=== PATIENT | female | born 1945 | race Caucasian/White ===

== ENCOUNTER 2016-05-20 15:56 | Emergency (ER) | payer OTHER, MEDICARE ==
--- NOTE | 2016-05-20 16:46 | EDPHY ---
H & P Stated Complaint: Depression x 1 month Source: Patient Exam Limitations: No limitations - Personal History Current Tetanus Diphtheria and Acellular Pertussis (TDAP): Yes Tetanus Vaccine Date: < 10 years - Medical/Surgical History Hx Asthma: No Hx Chronic Respiratory Disease: No Hx Diabetes: No Hx Cardiac Disease: No Hx Renal Disease: No Hx Cirrhosis: No Hx Alcoholism: No Hx HIV/AIDS: No Hx Splenectomy or Spleen Trauma: No Other PMH: cervical dystonia, hypothyroid, UTIs, Depression - Social History Smoking Status: Never smoked Time Seen by Provider: 05/20/16 16:12 HPI/ROS: CHIEF COMPLAINT: Depression, suicidal ideation secondary to underlying neurologic disease HISTORY OF PRESENT ILLNESS: The patient is referred to the emergency department from [facility] with suicidal ideation and depression. The patient has a history of cervical dystonia which has been somewhat refractory treatment. She underwent ECT therapy 1 month ago for treatment of the neurologic condition with very transient results. The patient reportedly has been treated with Effexor for depression. The patient continues to have worsening symptoms of depression. She has suicidal thoughts that she will end her life by stopping eating and drinking. REVIEW OF SYSTEMS: A comprehensive 10 point review of systems is otherwise negative aside from elements mentioned in the history of present illness. (Marvin Burgess) - Physical Exam Exam: General Appearance: Alert, no distress Eyes: Pupils equal and round no pallor or injection ENT, Mouth: Mucous membranes moist Respiratory: There are no retractions, lungs are clear to auscultation Cardiovascular: Regular rate and rhythm Gastrointestinal: Abdomen is soft and nontender, no masses, bowel sounds normal Neurological: Alert and oriented x4, 5/5 strength all 4 extremities, Parkinson like movement noted of the head consistent with her diagnosis of cervical dystonia Skin: Warm and dry, no rashes Musculoskeletal: Neck is supple nontender Extremities: symmetrical, full range of motion Psychiatric: Flat affect, endorses symptoms of depression and suicidal ideation. (Marvin Burgess) Constitutional: Initial Vital Signs Temperature (C) 36.6 C 05/20/16 15:59 Heart Rate 73 05/20/16 15:59 Respiratory Rate 18 05/20/16 15:59 Blood Pressure 137/67 H 05/20/16 15:59 O2 Sat (%) 93 05/20/16 15:59 O2 Delivery Mode Room Air Allergies/Adverse Reactions: No Known Allergies Allergy (Unverified 11/19/14 10:28) Home Medications: Medication Instructions Recorded Botox 11/19/14 CALCIUM 11/19/14 Clonazepam 11/19/14 Effexor 11/19/14 Nitrofurantoin Macrobid [Macrobid] 100 mg PO BID #14 cap 11/19/14 Synthroid 11/19/14 Medical Decision Making ED Course/Re-evaluation: The patient presents to the ED with depression, suicidal thoughts and dehydration. The patient received 2 L of normal saline. The patient has been medically cleared for psychiatric evaluation. The patient has been placed on an M1 psychiatric hold. At this point time, psychiatric placement is pending. The patient will be be turned over to Dr. Ludwig at 9pm. (Marvin Burgess) 2137: patient signed over to mt at 9:00 p.m. shift change. Patient pending placement. M1 hold. Depression. Suicidal ideation. Patient be turned over to Dr. Walden at 10:00 p.m. shift change. (Lester Ludwig) 2300 care assumed might me from Dr. Ludwig pending placement. 0130 patient has been accepted to [facility] by Dr. Mahajan. I have completed the EMTALA form. (Emerson Walden) Differential Diagnosis: Differential diagnosis considered includes depression, suicidal ideation, renal failure, dehydration (Marvin Burgess) - Data Points Laboratory Results: Laboratory Results 05/20/16 18:00 05/20/16 18:00 05/20/16 05/20/16 05/20/16 22:35 18:00 18:00 WBC 5.28 10^3/uL 10^3/uL (3.80-9.50) RBC 4.94 10^6/uL 10^6/uL (4.18-5.33) Hgb 15.1 g/dL g/dL (12.6-16.3) Hct 44.9 % % (38.0-47.0) MCV 90.9 fL fL (81.5-99.8) MCH 30.6 pg pg (27.9-34.1) MCHC 33.6 g/dL g/dL (32.4-36.7) RDW 12.1 % % (11.5-15.2) Plt Count 203 10^3/uL 10^3/uL (150-400) MPV 10.7 fL fL (8.7-11.7) Neut % (Auto) 48.8 % % (39.3-74.2) Lymph % (Auto) 38.8 % % (15.0-45.0) [place] % (Auto) 9.7 % % (4.5-13.0) Eos % (Auto) 1.7 % % (0.6-7.6) Baso % (Auto) 0.8 % % (0.3-1.7) Nucleat RBC Rel Count 0.0 % % (0.0-0.2) Absolute Neuts (auto) 2.58 10^3/uL 10^3/uL (1.70-6.50) Absolute Lymphs (auto) 2.05 10^3/uL 10^3/uL (1.00-3.00) Absolute Monos (auto) 0.51 10^3/uL 10^3/uL (0.30-0.80) Absolute Eos (auto) 0.09 10^3/uL 10^3/uL (0.03-0.40) Absolute Basos (auto) 0.04 10^3/uL 10^3/uL (0.02-0.10) Absolute Nucleated RBC 0.00 10^3/uL 10^3/uL (0-0.01) Immature Gran % 0.2 % % (0.0-1.1) Immature Gran # 0.01 10^3/uL 10^3/uL (0.00-0.10) Sodium 143 mEq/L mEq/L (134-144) Potassium 4.2 mEq/L mEq/L (3.5-5.2) Chloride 108 mEq/L mEq/L (97-110) Carbon Dioxide 24 mEq/l mEq/l (22-31) Anion Gap 11 mEq/L mEq/L (8-16) BUN 26 mg/dL H mg/dL (7-23) Creatinine 0.9 mg/dL mg/dL (0.6-1.0) Estimated GFR > 60 Glucose 84 mg/dL mg/dL (70-100) Calcium 9.6 mg/dL mg/dL (8.5-10.4) Urine Opiates Screen NEGATIVE (NEGATIVE) Urine Barbiturates NEGATIVE (NEGATIVE) Ur Phencyclidine Scrn NEGATIVE (NEGATIVE) Ur Amphetamine Screen NEGATIVE (NEGATIVE) U Benzodiazepines Scrn NEGATIVE (NEGATIVE) Urine Cocaine Screen NEGATIVE (NEGATIVE) U Marijuana (THC) Screen NEGATIVE (NEGATIVE) Medications Given: Discontinued Medications Clonazepam (Klonopin) 1 mg PO EDNOW ONE Stop: 05/20/16 21:47 Last Admin: 05/20/16 22:57 Dose: 1 mg Sodium Chloride (Ns) 1,000 mls @ 0 mls/hr IV ONCE ONE PRN Reason: Wide Open Stop: 05/20/16 18:05 Last Admin: 05/20/16 18:16 Dose: 1,000 mls Sodium Chloride (Ns) 1,000 mls @ 0 mls/hr IV ONCE ONE PRN Reason: Wide Open Stop: 05/20/16 18:05 Last Admin: 05/20/16 21:46 Dose: 1,000 mls Sodium Chloride (Ns) 1,000 mls @ 0 mls/hr IV ONCE ONE PRN Reason: Wide Open Stop: 05/20/16 20:30 Last Admin: 05/20/16 23:16 Dose: Not Given Mirtazapine (Remeron) 45 mg PO EDNOW ONE Stop: 05/20/16 21:48 Last Admin: 05/20/16 22:57 Dose: 45 mg Risperidone (Risperdal) 1.5 mg PO EDNOW ONE Stop: 05/20/16 22:31 Last Admin: 05/20/16 22:57 Dose: 1.5 mg Departure - Departure Disposition: Other Psych, Not [facility] Clinical Impression: Suicidal ideation, Severe major depression Condition: Fair Referrals: Griselda Gonzalez MD [Primary Care Provider] - As per Instructions
[2016-05-20] MEDS ORDERED: NS 1,000 ML IV ONE ×3 (18:04→20:29)
[2016-05-20 18:21] LABS: % IMMATURE GRANULYOCYTES 0.2 % (0.0-1.1); ABSOLUTE IMMATURE GRANULOCYTES 0.01 10^3/uL (0.00-0.10); ADD DIFF? NO; ADD MORPH? NO; ADD SCAN? NO; ATYPICAL LYMPHOCYTE FLAG 30 (0-99); FRAGMENT RBC FLAG 0 (0-99); HEMATOCRIT 44.9 % (38.0-47.0); HEMOGLOBIN 15.1 g/dL (12.6-16.3); LEFT SHIFT FLG 0 (0-99); LIPEMIA HEMOLYSIS FLAG 80 (0-99); MEAN CELL HEMOGLOBIN 30.6 pg (27.9-34.1); MEAN CELL HEMOGLOBIN CONCENTR. 33.6 g/dL (32.4-36.7); MEAN CELL VOLUME 90.9 fL (81.5-99.8); MEAN PLATELET VOLUME 10.7 fL (8.7-11.7); PLATELET CLUMPS FLAG 0 (0-99); PLATELET COUNT 203 10^3/uL (150-400); RED BLOOD CELL COUNT 4.94 10^6/uL (4.18-5.33); RED CELL DISTRIBUTION WIDTH 12.1 % (11.5-15.2)
[2016-05-20 18:38] LABS: ANION GAP 11 mEq/L (8-16); CALCIUM 9.6 mg/dL (8.5-10.4); CARBON DIOXIDE 24 mEq/l (22-31); CHLORIDE 108 mEq/L (97-110); CREATININE 0.9 mg/dL (0.6-1.0); GLOMERULAR FILTRATION RATE > 60; GLUCOSE 84 mg/dL (70-100); POTASSIUM 4.2 mEq/L (3.5-5.2); SODIUM 143 mEq/L (134-144)
[2016-05-20] MEDS ORDERED: clonazePAM 1 MG TAB PO ONE (21:46)
[2016-05-20] MEDS ORDERED: risperiDONE 0.25 MG TAB PO ONE (21:47)
[2016-05-20] MEDS ORDERED: MIRTAZAPINE 30 MG TAB PO ONE (21:47)
[2016-05-20] MEDS ORDERED: risperiDONE 0.5 MG TAB PO ONE (22:30)
[2016-05-20 23:47] VITALS: RESP 16
[2016-05-21 02:13] VITALS: BP 135/74; PULSE 69; TEMP 97.9; O2SAT 92
== END 2016-05-21 02:11 ==
DX: F32.2 Major depressive disorder, single episode, severe without psychotic features (principal); R45.851 Suicidal ideations
CPT/HCPCS: 80305

== ENCOUNTER → 2016-08-24 | Outpatient (CLI) | payer OTHER, MEDICARE | LOC: BHCLAF 13:30 | PROVIDERS: ATTEND Internal Medicine Cardiovascular Disease | DX: I45.10 Unspecified right bundle-branch block (principal); F60.3 Borderline personality disorder; Z79.899 Other long term (current) drug therapy | CPT/HCPCS: 93005-PO ==

== ENCOUNTER → 2016-10-05 | Outpatient (CLI) | payer OTHER, MEDICARE | LOC: BHLMT 10:30 | PROVIDERS: ATTEND Internal Medicine Cardiovascular Disease | DX: R94.31 Abnormal electrocardiogram [ECG] [EKG] (principal) ==

== ENCOUNTER → 2016-10-13 | Outpatient (CLI) | payer OTHER, MEDICARE | LOC: BHLMT 10:00 | PROVIDERS: ATTEND Internal Medicine Interventional Cardiology | DX: R94.31 Abnormal electrocardiogram [ECG] [EKG] (principal) | CPT/HCPCS: 93306-PO ==

== ENCOUNTER 2016-12-20 22:19 | Inpatient (IN) | payer OTHER, MEDICARE ==
--- NOTE | 2016-12-20 22:43 | EDPHY ---
General - History Smoking Status: Never smoked Narrative: CHIEF COMPLAINT: suicide attempt, chemical ingestion HISTORY OF PRESENT ILLNESS: Patient presents with with reports of suicide attempt by ingestion of service cleaner and turpentine. She will not provide many details to me. She says that she is anxious and sleepy. She admits to ingesting these chemicals in attempt to kill herself. She says due to the anxiety she does not want to live. She will not provide any other details for this. I then discussed the case with her . The said that she left his presence at 11:00 a.m.. At 9:00 p.m. he received a phone call from someone who works at an [employer]. The person informed the at the patient's request that she had been drinking these chemicals all day. There is no way to know the amount with the exact chemical she ingested she will not inform us of this and this was unwitnessed. She denies chest pain but she does feel shaking anxious. No other associated complaints. She will not provide any modifying factors. REVIEW OF SYSTEMS: Ten systems reviewed and are negative unless otherwise noted in the HPI PCP: Unknown SPECIALISTS: Dr. Olmos PAST MEDICAL HISTORY: Depression, anxiety, hypothyroid SOCIAL HISTORY: Reviewed with spouse EXAMINATION General Appearance: Alert, perseverating Head: normocephalic, atraumatic Eyes: Pupils equal and round, no conjunctival pallor or injection ENT, Mouth: Mucous membranes moist. Dried waxes substance around the oral mucosa. The airway is patent. Neck: Normal inspection, supple, non-tender Respiratory: Scattered harsh rhonchi crackles. No retractions. No distress. Cardiovascular: Tachycardic rate with regular rhythm. No murmur. Gastrointestinal: Abdomen is soft and nontender. No distention. No tympany rigidity. Neurological: Alert to person and place. Unable to perform remainder of neuro examination due to uncooperative patient Skin: Warm and dry, no rash. There are dried unknown substances around the neck and chest and chin. No laceration. No abrasions. Extremities: Moving all 4 extremities. Will not follow commands well enough to test range of motion Psychiatric: Flat affect. Admits to suicide attempt by ingestion of chemicals. DIFFERENTIAL DIAGNOSES: Including but not limited to suicide attempt, metabolic acidosis, depression, anxiety MDM: 10:40 p.m. Suicide attempt by ingestion of brasso (service cleaner) and either turpentine or denatured alcohol. Patient is perseverating but she is awake alert. She is protecting her airway without any difficulty at this time. I have completed an M1 hold at this time, and Dr. Wright has signed this. I will contact poison Control. I have ordered lactic acid, venous blood gas and baseline laboratory studies. 10:55 p.m. Case discussed with Poison Control, Mariah KILGORE, case #[id number]. Informed her of the presentation and examination. She recommends routine laboratory studies to include chemistry and liver function panel. Recommends Tylenol and salicylic acid level. Recommend EKG. Recommend supportive care including oxygen if needed. Recommend IV fluid resuscitation. She informed me that the service cleaner is a wax base fur dry cleaner, and there is no formal treatment for this. Supportive care recommended. The teenager alcohol as an ethanol base and not a methanol base. This with same treatment as ethanol intoxication. The to return is a hydrocarbon, thus Respiratory depression should be monitored. There is no need for us to call back with results unless we have further questions for the behavior interventionist who was on-call. 11:35 p.m. Patient re-evaluated. She continues to perseverate, but her vital signs have improved. She is now vital signs within normal limits. She continues to cough with a harsh, productive cough. She is in no acute distress at this time. 11:41 p.m. Case discussed with hospitalist Dr. Brady Curtis. He will admit the patient to his service. The patient will require an ICU bed due to the M1 hold. This has been ordered. She is admitted in stable condition at this time. (Shashank Shrestha) PHYSICIAN DOCUMENTATION: The patient was evaluated and managed by the Physician Computer Operations Analyst. My co- signature indicates that I have reviewed this chart and I agree with the findings and plan of care as documented. I am the secondary supervising physician. (Sandy Wright) - Diagnostics Imaging Results: Imaging Impressions Chest X-Ray 12/20/16 23:01 Impression: Shallow aspiration exaggerates lung markings. There may be an element of airways disease and basilar atelectasis with follow-up suggested to exclude developing pneumonia. - Objective Vital Signs: Initial Vital Signs Temperature (C) 36.4 C 12/20/16 22:23 Heart Rate 102 H 12/20/16 22:23 Respiratory Rate 18 12/20/16 22:23 Blood Pressure 130/81 H 12/20/16 22:23 O2 Sat (%) 90 L 12/20/16 22:23 O2 Delivery Mode Room Air Allergies/Adverse Reactions: No Known Allergies Allergy (Verified 12/20/16 22:25) Home Medications: Medication Instructions Recorded Botox 11/19/14 CALCIUM 11/19/14 Effexor 11/19/14 Synthroid 11/19/14 Valium 12/20/16 Laboratory Results: Laboratory Results 12/20/16 23:00 12/20/16 23:00 12/20/16 12/20/16 12/20/16 23:30 23:10 23:00 WBC RBC Hgb POC Hgb Hct POC Hct MCV MCH MCHC RDW Plt Count MPV Neut % (Auto) Lymph % (Auto) [place] % (Auto) Eos % (Auto) Baso % (Auto) Nucleat RBC Rel Count Absolute Neuts (auto) Absolute Lymphs (auto) Absolute Monos (auto) Absolute Eos (auto) Absolute Basos (auto) Absolute Nucleated RBC Immature Gran % Immature Gran # Puncture Site Patient Temperature VBG pH VBG HCO3 VBG Total CO2 VBG O2 Saturation VBG Base Excess VBG Lactic Acid 4.9 mmol/L H mmol/L (0.7-2.1) Mixed VBG pCO2 Mixed VBG pO2 POC Sodium Sodium POC Potassium Potassium POC Chloride Chloride Carbon Dioxide Anion Gap POC BUN BUN Creatinine POC Creatinine Estimated GFR Glucose POC Glucose Serum Osmolality 311 mosmo/kg H mosmo/kg (280-297) Calcium Total Bilirubin Conjugated Bilirubin Unconjugated Bilirubin AST ALT Alkaline Phosphatase Total Protein Albumin TSH 3.850 uIU/mL uIU/mL (0.465-4.680) Salicylates Urine Opiates Screen NEGATIVE (NEGATIVE) Acetaminophen Urine Barbiturates NEGATIVE (NEGATIVE) Ur Phencyclidine Scrn NEGATIVE (NEGATIVE) Ur Amphetamine Screen NEGATIVE (NEGATIVE) U Benzodiazepines Scrn NON-NEGATIVE H (NEGATIVE) Urine Cocaine Screen NEGATIVE (NEGATIVE) U Marijuana (THC) Screen NEGATIVE (NEGATIVE) Ethyl Alcohol 12/20/16 12/20/16 12/20/16 23:00 23:00 23:00 WBC 15.60 10^3/uL H 10^3/uL (3.80-9.50) RBC 5.25 10^6/uL 10^6/uL (4.18-5.33) Hgb 17.3 g/dL H g/dL (12.6-16.3) POC Hgb Hct 49.2 % H % (38.0-47.0) POC Hct MCV 93.7 fL fL (81.5-99.8) MCH 33.0 pg pg (27.9-34.1) MCHC 35.2 g/dL g/dL (32.4-36.7) RDW 13.5 % % (11.5-15.2) Plt Count 304 10^3/uL 10^3/uL (150-400) MPV 10.0 fL fL (8.7-11.7) Neut % (Auto) 77.1 % H % (39.3-74.2) Lymph % (Auto) 13.7 % L % (15.0-45.0) [place] % (Auto) 8.3 % % (4.5-13.0) Eos % (Auto) 0.1 % L % (0.6-7.6) Baso % (Auto) 0.4 % % (0.3-1.7) Nucleat RBC Rel Count 0.0 % % (0.0-0.2) Absolute Neuts (auto) 12.04 10^3/uL H 10^3/uL (1.70-6.50) Absolute Lymphs (auto) 2.13 10^3/uL 10^3/uL (1.00-3.00) Absolute Monos (auto) 1.30 10^3/uL H 10^3/uL (0.30-0.80) Absolute Eos (auto) 0.01 10^3/uL L 10^3/uL (0.03-0.40) Absolute Basos (auto) 0.06 10^3/uL 10^3/uL (0.02-0.10) Absolute Nucleated RBC 0.00 10^3/uL 10^3/uL (0-0.01) Immature Gran % 0.4 % % (0.0-1.1) Immature Gran # 0.06 10^3/uL 10^3/uL (0.00-0.10) Puncture Site NONE GIVEN Patient Temperature 37.0 DEGREES DEGREES VBG pH 7.39 (7.31-7.42) VBG HCO3 26 mEQ/L mEQ/L (22-26) VBG Total CO2 28 mEq/L H mEq/L (23-27) VBG O2 Saturation 87 % H % (65-75) VBG Base Excess 1.2 mEq/L mEq/L (-2.5-2.5) VBG Lactic Acid Mixed VBG pCO2 44 mmHg mmHg (40-44) Mixed VBG pO2 58 mmHg H mmHg (35-40) POC Sodium Sodium 139 mEq/L mEq/L (134-144) POC Potassium Potassium 3.5 mEq/L mEq/L (3.5-5.2) POC Chloride Chloride 95 mEq/L L mEq/L (97-110) Carbon Dioxide 24 mEq/l mEq/l (22-31) Anion Gap 20 mEq/L H mEq/L (8-16) POC BUN BUN 18 mg/dL mg/dL (7-23) Creatinine 0.8 mg/dL mg/dL (0.6-1.0) POC Creatinine Estimated GFR > 60 Glucose 106 mg/dL H mg/dL (70-100) POC Glucose Serum Osmolality Calcium 10.4 mg/dL mg/dL (8.5-10.4) Total Bilirubin 1.6 mg/dL H mg/dL (0.1-1.4) Conjugated Bilirubin 0.2 mg/dL mg/dL (0.0-0.5) Unconjugated Bilirubin 1.4 mg/dL H mg/dL (0.0-1.1) AST 53 IU/L H IU/L (14-46) ALT 51 IU/L IU/L (9-52) Alkaline Phosphatase 93 IU/L IU/L (38-126) Total Protein 8.1 g/dL g/dL (6.3-8.2) Albumin 4.8 g/dL g/dL (3.5-5.0) TSH Salicylates < 1.0 mg/dL L mg/dL (2.0-20.0) Urine Opiates Screen Acetaminophen < 10 mcg/mL L mcg/mL (10-30) Urine Barbiturates Ur Phencyclidine Scrn Ur Amphetamine Screen U Benzodiazepines Scrn Urine Cocaine Screen U Marijuana (THC) Screen Ethyl Alcohol 70 mg/dL H mg/dL (0-10) 12/20/16 22:55 WBC RBC Hgb POC Hgb 18.4 gm/dL H gm/dL (12.6-16.3) Hct POC Hct 54 % H % (38-47) MCV MCH MCHC RDW Plt Count MPV Neut % (Auto) Lymph % (Auto) [place] % (Auto) Eos % (Auto) Baso % (Auto) Nucleat RBC Rel Count Absolute Neuts (auto) Absolute Lymphs (auto) Absolute Monos (auto) Absolute Eos (auto) Absolute Basos (auto) Absolute Nucleated RBC Immature Gran % Immature Gran # Puncture Site Patient Temperature VBG pH VBG HCO3 VBG Total CO2 VBG O2 Saturation VBG Base Excess VBG Lactic Acid Mixed VBG pCO2 Mixed VBG pO2 POC Sodium 140 mEq/L mEq/L (134-144) Sodium POC Potassium 4.4 mEq/L mEq/L (3.3-5.0) Potassium POC Chloride 98 mEq/L mEq/L (97-110) Chloride Carbon Dioxide Anion Gap POC BUN 25 mg/dL H mg/dL (7-23) BUN Creatinine POC Creatinine 0.9 mg/dL mg/dL (0.6-1.0) Estimated GFR Glucose POC Glucose 113 mg/dL H mg/dL (70-100) Serum Osmolality Calcium Total Bilirubin Conjugated Bilirubin Unconjugated Bilirubin AST ALT Alkaline Phosphatase Total Protein Albumin TSH Salicylates Urine Opiates Screen Acetaminophen Urine Barbiturates Ur Phencyclidine Scrn Ur Amphetamine Screen U Benzodiazepines Scrn Urine Cocaine Screen U Marijuana (THC) Screen Ethyl Alcohol Medications Given: Ondansetron HCl (Zofran) 4 mg IVP Q4HRS PRN PRN Reason: Nausea/Vomiting, Can't Take PO Stop: 06/18/17 23:40 Last Admin: 12/21/16 01:00 Dose: 4 mg Discontinued Medications Sodium Chloride (Ns) 1,000 mls @ 0 mls/hr IV EDNOW ONE; Wide Open PRN Reason: Protocol Stop: 12/20/16 22:55 Last Admin: 12/20/16 23:25 Dose: 1,000 mls Mirtazapine (Remeron) 15 mg PO ONCE ONE Stop: 12/21/16 01:14 Last Admin: 12/21/16 01:47 Dose: 15 mg Point of Care Test Results: 12/20/16 22:55 POC Sodium 140 POC Potassium 4.4 POC Chloride 98 POC BUN 25 H POC Creatinine 0.9 POC Glucose 113 H Departure - Departure Disposition: [facility] Inpatient Acute Clinical Impression: Attempted suicide Ingestion of corrosive chemical Qualifiers: Encounter type: initial encounter Injury intent: intentional self-harm Qualified Code(s): T54.92XA - Toxic effect of unspecified corrosive substance, intentional self-harm, initial encounter Condition: Fair
[2016-12-20] MEDS ORDERED: NS 1,000 ML IV ONE (22:54)
[2016-12-20 23:12] LABS: PCO2 VENOUS 44 mmHg (40-44); PH VENOUS BLOOD 7.39 (7.31-7.42); PO2 VENOUS 58 mmHg (35-40); TCO2 VENOUS 28 mEq/L (23-27); VEN MEASURED OXYGEN SATURATION 87 % (65-75)
[2016-12-20 23:15] LABS: % IMMATURE GRANULYOCYTES 0.4 % (0.0-1.1); ABSOLUTE IMMATURE GRANULOCYTES 0.06 10^3/uL (0.00-0.10); ADD DIFF? NO; ADD MORPH? NO; ADD SCAN? NO; ATYPICAL LYMPHOCYTE FLAG 0 (0-99); FRAGMENT RBC FLAG 0 (0-99); HEMATOCRIT 49.2 % (38.0-47.0); HEMOGLOBIN 17.3 g/dL (12.6-16.3); LEFT SHIFT FLG 0 (0-99); LIPEMIA HEMOLYSIS FLAG 90 (0-99); MEAN CELL HEMOGLOBIN CONCENTR. 35.2 g/dL (32.4-36.7); MEAN CELL VOLUME 93.7 fL (81.5-99.8); PLATELET CLUMPS FLAG 10 (0-99); PLATELET COUNT 304 10^3/uL (150-400); RED BLOOD CELL COUNT 5.25 10^6/uL (4.18-5.33); RED CELL DISTRIBUTION WIDTH 13.5 % (11.5-15.2)
[2016-12-20 23:34] LABS: ALANINE AMINOTRANSFERASE 51 IU/L (9-52); ALBUMIN 4.8 g/dL (3.5-5.0); ALKALINE PHOSPHATASE 93 IU/L (38-126); ANION GAP 20 mEq/L (8-16); ASPARTATE AMINOTRANSFERASE 53 IU/L (14-46); BILIRUBIN,TOTAL 1.6 mg/dL (0.1-1.4); BILIRUBIN-CONJUGATED 0.2 mg/dL (0.0-0.5); BILIRUBIN-UNCONJUGATED 1.4 mg/dL (0.0-1.1); CALCIUM 10.4 mg/dL (8.5-10.4); CARBON DIOXIDE 24 mEq/l (22-31); CHLORIDE 95 mEq/L (97-110); CREATININE 0.8 mg/dL (0.6-1.0); ETHANOL SERUM 70 mg/dL (0-10); GLOMERULAR FILTRATION RATE > 60; GLUCOSE 106 mg/dL (70-100); POTASSIUM 3.5 mEq/L (3.5-5.2); SALICYLATE < 1.0 mg/dL (2.0-20.0); SODIUM 139 mEq/L (134-144); TOTAL PROTEIN 8.1 g/dL (6.3-8.2)
--- NOTE | 2016-12-20 23:34 | CPEKG ---
Heart Rate: 93 RR Interval: 645 P-R Interval: 152 QRSD Interval: 140 QT Interval: 412 QTC Interval: 513 P [place]: 68 QRS [place]: -119 T Wave [place]: 62 EKG Severity - ABNORMAL ECG - EKG Impression: SINUS RHYTHM EKG Impression: PROBABLE LEFT ATRIAL ABNORMALITY EKG Impression: RIGHT BUNDLE BRANCH BLOCK Electronically Signed By: Sandy Wright 22-Dec-2016 05:27:20
[2016-12-20] MEDS ORDERED: ACETAMINOPHEN 325 MG TAB PO PRN (23:41)
[2016-12-20] MEDS ORDERED: ONDANSETRON DISINTEGRATING 4 MG TAB PO PRN (23:41)
[2016-12-20] MEDS ORDERED: ONDANSETRON 4 MG/2 ML VIAL IVP PRN (23:41)
--- NOTE | 2016-12-21 01:06 | PDGENHP ---
History and Physical - Chief Complaint Suicide attempt - History of Present Illness 71 yo F w/ depression, anxiety, and cervical dystonia brought to ED after suicide attempt. Patient has had several psychiatric admission for similar issues in the setting of severe depression and anxiety. Today she drank unclear quantities of turpentine, denatured alcohol, and Brasso in a suicide attempt. She states a lot of her depression stems from her cervical dystonia and related disability. ED spoke with poison control who recommended single ECG and admission for monitoring and supportive care. History Information - Allergies/Home Medication List Allergies/Adverse Reactions: No Known Allergies Allergy (Verified 12/20/16 22:25) Home Medications: Botox 11/19/14 [Last Taken Unknown] CALCIUM 11/19/14 [Last Taken Unknown] Effexor 11/19/14 [Last Taken Unknown] Synthroid 11/19/14 [Last Taken Unknown] Valium 12/20/16 [Last Taken Unknown] I have personally reviewed and updated: family history, medical history - Past Medical History Additional medical history: Depression - Family History Positive for: cancer - Social History Smoking Status: Never smoked Review of Systems Review of Systems: ROS: 10pt was reviewed & negative except for what was stated in HPI & below Physical Exam Physical Exam: Temp Pulse Resp BP Pulse Ox 36.9 C 85 16 132/69 H 93 12/21/16 00:05 12/21/16 00:05 12/21/16 00:05 12/21/16 00:05 12/21/16 00:05 Constitutional: chronically ill appearing, uncomfortable Eyes: PERRL, EOMI Ears, Nose, Mouth, Throat: moist mucous membranes, no oral mucosal ulcers Cardiovascular: regular rate and rhythym, systolic murmur Respiratory: no respiratory distress, no rales or rhonchi Gastrointestinal: normoactive bowel sounds, soft, non-tender abdomen Skin: warm, normal color Musculoskeletal: full muscle strength, no muscle tenderness Neurologic: AAOx3, CN II-XII Intact, other (Side to side head motion noted) Psychiatric: anxious, depressed Lab Data & Imaging Review 12/20/16 23:00 12/20/16 23:00 WBC 15.60 10^3/uL (3.80-9.50) H 12/20/16 23:00 RBC 5.25 10^6/uL (4.18-5.33) 12/20/16 23:00 Hgb 17.3 g/dL (12.6-16.3) H 12/20/16 23:00 POC Hgb 18.4 gm/dL (12.6-16.3) H 12/20/16 22:55 Hct 49.2 % (38.0-47.0) H 12/20/16 23:00 POC Hct 54 % (38-47) H 12/20/16 22:55 MCV 93.7 fL (81.5-99.8) 12/20/16 23:00 MCH 33.0 pg (27.9-34.1) 12/20/16 23:00 MCHC 35.2 g/dL (32.4-36.7) 12/20/16 23:00 RDW 13.5 % (11.5-15.2) 12/20/16 23:00 Plt Count 304 10^3/uL (150-400) 12/20/16 23:00 MPV 10.0 fL (8.7-11.7) 12/20/16 23:00 Neut % (Auto) 77.1 % (39.3-74.2) H 12/20/16 23:00 Lymph % (Auto) 13.7 % (15.0-45.0) L 12/20/16 23:00 [place] % (Auto) 8.3 % (4.5-13.0) 12/20/16 23:00 Eos % (Auto) 0.1 % (0.6-7.6) L 12/20/16 23:00 Baso % (Auto) 0.4 % (0.3-1.7) 12/20/16 23:00 Nucleat RBC Rel Count 0.0 % (0.0-0.2) 12/20/16 23:00 Absolute Neuts (auto) 12.04 10^3/uL (1.70-6.50) H 12/20/16 23:00 Absolute Lymphs (auto) 2.13 10^3/uL (1.00-3.00) 12/20/16 23:00 Absolute Monos (auto) 1.30 10^3/uL (0.30-0.80) H 12/20/16 23:00 Absolute Eos (auto) 0.01 10^3/uL (0.03-0.40) L 12/20/16 23:00 Absolute Basos (auto) 0.06 10^3/uL (0.02-0.10) 12/20/16 23:00 Absolute Nucleated RBC 0.00 10^3/uL (0-0.01) 12/20/16 23:00 Immature Gran % 0.4 % (0.0-1.1) 12/20/16 23:00 Immature Gran # 0.06 10^3/uL (0.00-0.10) 12/20/16 23:00 Puncture Site NONE GIVEN 12/20/16 23:00 Patient Temperature 37.0 DEGREES 12/20/16 23:00 VBG pH 7.39 (7.31-7.42) 12/20/16 23:00 VBG HCO3 26 mEQ/L (22-26) 12/20/16 23:00 VBG Total CO2 28 mEq/L (23-27) H 12/20/16 23:00 VBG O2 Saturation 87 % (65-75) H 12/20/16 23:00 VBG Base Excess 1.2 mEq/L (-2.5-2.5) 12/20/16 23:00 VBG Lactic Acid 4.9 mmol/L (0.7-2.1) H 12/20/16 23:00 Mixed VBG pCO2 44 mmHg (40-44) 12/20/16 23:00 Mixed VBG pO2 58 mmHg (35-40) H 12/20/16 23:00 POC Sodium 140 mEq/L (134-144) 12/20/16 22:55 Sodium 139 mEq/L (134-144) 12/20/16 23:00 POC Potassium 4.4 mEq/L (3.3-5.0) 12/20/16 22:55 Potassium 3.5 mEq/L (3.5-5.2) 12/20/16 23:00 POC Chloride 98 mEq/L (97-110) 12/20/16 22:55 Chloride 95 mEq/L (97-110) L 12/20/16 23:00 Carbon Dioxide 24 mEq/l (22-31) 12/20/16 23:00 Anion Gap 20 mEq/L (8-16) H 12/20/16 23:00 POC BUN 25 mg/dL (7-23) H 12/20/16 22:55 BUN 18 mg/dL (7-23) 12/20/16 23:00 Creatinine 0.8 mg/dL (0.6-1.0) 12/20/16 23:00 POC Creatinine 0.9 mg/dL (0.6-1.0) 12/20/16 22:55 Estimated GFR > 60 12/20/16 23:00 Glucose 106 mg/dL (70-100) H 12/20/16 23:00 POC Glucose 113 mg/dL (70-100) H 12/20/16 22:55 Calcium 10.4 mg/dL (8.5-10.4) 12/20/16 23:00 Total Bilirubin 1.6 mg/dL (0.1-1.4) H 12/20/16 23:00 Conjugated Bilirubin 0.2 mg/dL (0.0-0.5) 12/20/16 23:00 Unconjugated Bilirubin 1.4 mg/dL (0.0-1.1) H 12/20/16 23:00 AST 53 IU/L (14-46) H 12/20/16 23:00 ALT 51 IU/L (9-52) 12/20/16 23:00 Alkaline Phosphatase 93 IU/L (38-126) 12/20/16 23:00 Total Protein 8.1 g/dL (6.3-8.2) 12/20/16 23:00 Albumin 4.8 g/dL (3.5-5.0) 12/20/16 23:00 TSH 3.850 uIU/mL (0.465-4.680) 12/20/16 23:10 Salicylates < 1.0 mg/dL (2.0-20.0) L 12/20/16 23:00 Urine Opiates Screen NEGATIVE (NEGATIVE) 12/20/16 23:30 Acetaminophen < 10 mcg/mL (10-30) L 12/20/16 23:00 Urine Barbiturates NEGATIVE (NEGATIVE) 12/20/16 23:30 Ur Phencyclidine Scrn NEGATIVE (NEGATIVE) 12/20/16 23:30 Ur Amphetamine Screen NEGATIVE (NEGATIVE) 12/20/16 23:30 U Benzodiazepines Scrn NON-NEGATIVE (NEGATIVE) H 12/20/16 23:30 Urine Cocaine Screen NEGATIVE (NEGATIVE) 12/20/16 23:30 U Marijuana (THC) Screen NEGATIVE (NEGATIVE) 12/20/16 23:30 Ethyl Alcohol 70 mg/dL (0-10) H 12/20/16 23:00 Visualized and Interpreted Chest x-ray results: Yes Chest X-Ray results: no infiltrate Visualized and Interpreted EKG results: Yes EKG Interpretation: Positive for: normal sinsus rhythm, right bundle branch block Assessment & Plan Assessment: 71 yo F w/ depression and anxiety admitted for observation after a suicide attempt. Plan: 1. Major depression with suicide attempt via ingestion - Patient ingested turpentine, denatured alcohol, and Brasso in suicide attempt on day of admission. Patient A&Ox2 on my evaluation and responding to questions appropriate. She is severely depressed, anxious, and continues to express a suicidal resire. - Discussed case with ED physician Dr. King who spoke with poison control: indicated for supportive care only - Admit to ICU with M1 hold 2. Cervical dystonia - Notable head tremor on exam and per patient significant contributor to depression and disability Diet - Regular Code - Full Ppx - SCDs Dispo - Admit to observation, will need psychiatric hospitalization after medical clearance
[2016-12-21] MEDS ORDERED: MIRTAZAPINE 15 MG TAB PO ONE (01:13)
[2016-12-21 04:40] LABS: % IMMATURE GRANULYOCYTES 0.3 % (0.0-1.1); ABSOLUTE IMMATURE GRANULOCYTES 0.06 10^3/uL (0.00-0.10); ADD DIFF? NO; ADD MORPH? NO; ADD SCAN? NO; ATYPICAL LYMPHOCYTE FLAG 0 (0-99); FRAGMENT RBC FLAG 0 (0-99); HEMATOCRIT 43.9 % (38.0-47.0); HEMOGLOBIN 15.4 g/dL (12.6-16.3); LEFT SHIFT FLG 0 (0-99); LIPEMIA HEMOLYSIS FLAG 90 (0-99); MEAN CELL HEMOGLOBIN 33.2 pg (27.9-34.1); MEAN CELL HEMOGLOBIN CONCENTR. 35.1 g/dL (32.4-36.7); MEAN CELL VOLUME 94.6 fL (81.5-99.8); MEAN PLATELET VOLUME 10.4 fL (8.7-11.7); PLATELET CLUMPS FLAG 0 (0-99); PLATELET COUNT 259 10^3/uL (150-400); RED BLOOD CELL COUNT 4.64 10^6/uL (4.18-5.33); RED CELL DISTRIBUTION WIDTH 13.7 % (11.5-15.2)
[2016-12-21 04:56] LABS: ALANINE AMINOTRANSFERASE 47 IU/L (9-52); ALBUMIN 3.7 g/dL (3.5-5.0); ALKALINE PHOSPHATASE 75 IU/L (38-126); ANION GAP 13 mEq/L (8-16); ASPARTATE AMINOTRANSFERASE 43 IU/L (14-46); BILIRUBIN,TOTAL 1.2 mg/dL (0.1-1.4); CALCIUM 9.6 mg/dL (8.5-10.4); CARBON DIOXIDE 30 mEq/l (22-31); CHLORIDE 103 mEq/L (97-110); CREATININE 0.7 mg/dL (0.6-1.0); GLOMERULAR FILTRATION RATE > 60; GLUCOSE 102 mg/dL (70-100); POTASSIUM 3.5 mEq/L (3.5-5.2); SODIUM 146 mEq/L (134-144); TOTAL PROTEIN 6.7 g/dL (6.3-8.2)
--- NOTE | 2016-12-21 09:05 | ASMTCMCOM ---
CM Note CM Note Notes: 71 year old female admitted after suicide attempt-chemical injestion. Patient has a hx of severe depression, anxiety, other suicide attempts, Cervical dystonia. Will needs to be medically cleared before psych can eval. Will need mental health placement. Date Signed: 12/21/2016 09:05 AM Electronically Signed By:Iveth Baldwin LCSW
[2016-12-21] MEDS ORDERED: POTASSIUM CL 20 MEQ TAB PO ONE (09:21)
[2016-12-21] MEDS ORDERED: LORazepam 2 MG/ML INJ ONE (10:40)
--- NOTE | 2016-12-21 10:41 | GCON ---
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 HISTORY OF PRESENT ILLNESS: The patient is a 71-year-old white female with a past medical history of depression and anxiety. She was brought to the emergency room after attempting suicide. She appare ntly drank an unknown quantity of turpentine, denatured alcohol, and Brasso. She was subsequently ad mitted and is currently on an M1 hold. Poison Control has been consulted. Currently, patient is min imally verbal. PAST MEDICAL HISTORY: Significant for depression, anxiety, and cervical dystonia. ALLERGIES: No known allergies to medications. SOCIAL HISTORY: No history of tobacco use. Unknown alcohol use. HOME MEDICATIONS: Include Valium, Synthroid, Effexor, calcium, and she has had Botox. PHYSICAL EXAMINATION: VITAL SIGNS: Blood pressure is 105/50, pulse is 75, respirations 16, temperat ure 37.3, oxygen saturation 96% on 2 L. GENERAL: A well-developed, well-nourished 71-year-old white female who is resting comfortably but somewhat emotional. HEENT: Eyes are PERRLA, EOMI. Throat sh ows no erythema or tonsillar hypertrophy. NECK: Supple. There is no cervical adenopathy. HEART: Regular rate and rhythm without murmurs, rubs, gallops. LUNGS: Clear to auscultation with no wheeze s or rhonchi. ABDOMEN: Soft, nontender. Bowel sounds are present in all 4 quadrants. EXTREMITIES: No clubbing, cyanosis, or edema. LABORATORIES: White count 17.7, hemoglobin 15, hematocrit 43, platelet count 259. Sodium 146, potas sium 3.5, chloride 103, CO2 is 30, BUN 15, creatinine 0.7, glucose is 102. Urine drug screen is non- negative for benzodiazepines; alcohol level 70. IMPRESSION: 1. Suicide attempt. 2. Chemical ingestion. 3. History of depression and anxiety. 4. History of cervical dystonia. 5. Hypothyroidism. RECOMMENDATIONS: 1. Agree with M1 hold. 2. Close cardiovascular monitoring. 3. DVT and PE prophylaxis. 4. Stress ulcer prophylaxis. 5. When medically cleared, will consult Mental Health. /[id number]/MODL
[2016-12-21] MEDS ORDERED: LORazepam 2 MG/ML INJ IVP ONE (10:44)
[2016-12-21] MEDS ORDERED: ACETAMINOPHEN 325 MG TAB PO PRN (10:44)
[2016-12-21] MEDS: LEVOTHYROXINE 88 MCG TAB PO SCH (11:28)
[2016-12-21 12:02] VITALS: RESP 18
[2016-12-21 13:19] VITALS: O2SAT 97
--- NOTE | 2016-12-21 15:39 | PDMN ---
Medical Necessity Medical necessity: Change to IP per MD; los >2 mn for eval/tx of serious suicide attempt, admit to ICU for M1 Hold, 1:1 monitoring/supportive care & psych consult; hx major depression, anxiety, cervical dystonia; per H&P & order 12/21/16
[2016-12-21 16:10] VITALS: BP 128/72; PULSE 77; TEMP 98.7
--- NOTE | 2016-12-21 16:25 | PDDCSUM ---
Discharge Summary Discharge Summary: DISCHARGE SUMMARY FOLLOW-UP ITEMS: Reestablish outpatient mental health care DATE OF ADMISSION: 12/20/2016 DATE OF DISCHARGE: 12/21/2016 DISCHARGE DIAGNOSES: 1. Acute suicide attempt 2. Acute worsening of chronic depression 3. Acute lactic acidosis 4. Chronic cervical dystonia 5. Chronic benzodiazepine dependency CONSULTATIONS: Pulmonary Critical Care, mental health PROCEDURES / IMAGING: None CHIEF COMPLAINT: Acute suicide attempt SUBJECTIVE: Patient is feeling well at time discharge, she continues to have active suicidal ideation PHYSICAL EXAM ON DISCHARGE: Systolic blood pressure is 110, heart rate 70, afebrile overnight, satting 90% on room air, alert awake oriented x3, concentration 7/7, patient is depressed, she is actively suicidal, lungs are clear to auscultation bilaterally, heart rate and rhythm are regular comma motor strength is 5/5 bilateral upper and lower extremities, bowel sounds are present abdomen is soft nontender nondistended LABS ON DISCHARGE: Serum bicarbonate 30, creatinine 0.7, hemoglobin 15.4, liver panel unremarkable HOSPITAL COURSE BY PROBLEM: The patient presented with acute suicide attempt defined by ingestion of turpentine, brasso, Valium, in the setting of consuming alcohol, with the voiced intent of harming herself. The patient reports that her depression is exacerbated by her cervical dystonia, for which she takes benzodiazepines, and is currently taking Valium. Poison Control was contacted and they recommended supportive care, cardiac monitoring. Patient was placed on M1 hold and monitored in the intensive care unit. She experienced concomitant lactic acidosis which responded to IV fluids. Her serum bicarbonate level was stable at 30 at time of discharge. She had her other electrolytes repleted including potassium. The patient was medically cleared and was evaluated by mental health , and was appropriate for transfer to inpatient Behavioral Health Services for further treatment. DISCHARGE MEDICATIONS: Please see official discharge medication reconciliation sheet in chart , continue home Valium, continue other home medications. DISCHARGE INSTRUCTIONS: Transfer to inpatient Behavioral Health. TIME SPENT: Greater than 35 minutes were spent on direct patient care, as well as discharge planning and preparation. > 50% of time counseling regarding the above, as well as coordinating care. Patient's medical stabilization occurred more quickly than originally anticipated by the admitting provider, and the patient is medically clear she is stable for transfer to inpatient Behavioral Health where she will receive ongoing inpatient mental health treatment.
[2016-12-21] MEDS ORDERED: DIAZEPAM 5 MG TAB PO SCH (21:00)
[2016-12-21] MEDS ORDERED: NON-FORMULARY NEW DRUG (Mirtazapine [Remeron] 22.5 MG) PO SCH (21:00)
[2016-12-21] MEDS ORDERED: MIRTAZAPINE 15 MG TAB PO SCH (21:00)
[2016-12-21] MEDS: VENLAFAXINE XR 75 MG CAP PO SCH (21:48)
[2016-12-22] MEDS: LEVOTHYROXINE 88 MCG TAB PO SCH (06:07)
[2016-12-22] MEDS: VENLAFAXINE XR 75 MG CAP PO SCH (07:54)
[2016-12-22] MEDS ORDERED: DIAZEPAM 5 MG TAB PO SCH (09:00)
--- NOTE | 2016-12-22 14:38 | PDDCSUM ---
Discharge Summary Discharge Summary: DISCHARGE SUMMARY FOLLOW-UP ITEMS[facility] DATE OF ADMISSION: 12/20/2016 DATE OF DISCHARGE: 12/22/2016 DISCHARGE DIAGNOSES: 1. Acute suicide attempt 2. Acute worsening of chronic depression 3. Acute lactic acidosis 4. Chronic cervical dystonia 5. Chronic benzodiazepine dependency CONSULTATIONS: Pulmonary Critical Care, mental health PROCEDURES / IMAGING: None CHIEF COMPLAINT: Acute suicide attempt SUBJECTIVE: Patient is feeling well at time discharge, she continues to have active suicidal ideation, much more talkative today PHYSICAL EXAM ON DISCHARGE: Alert awake oriented x3, concentration 7/7, patient is depressed, she is actively suicidal, lungs are clear to auscultation bilaterally, heart rate and rhythm are regular, motor strength is 5/5 bilateral upper and lower extremities , bowel sounds are present abdomen is soft nontender nondistended, no neck stiffness, hoarse voice LABS ON DISCHARGE: Serum bicarbonate 30, creatinine 0.7, hemoglobin 15.4, liver panel unremarkable HOSPITAL COURSE BY PROBLEM: The patient presented with acute suicide attempt defined by ingestion of turpentine, brasso, Valium, in the setting of consuming alcohol, with the voiced intent of harming herself. The patient reports that her depression is exacerbated by her cervical dystonia, for which she takes benzodiazepines, and is currently taking Valium. Poison Control was contacted and they recommended supportive care, cardiac monitoring. Patient was placed on M1 hold and monitored in the intensive care unit. She experienced concomitant lactic acidosis which responded to IV fluids. Her serum bicarbonate level was stable at 30 at time of discharge. She had her other electrolytes repleted including potassium. The patient was medically cleared and was evaluated by mental health , and was appropriate for transfer to inpatient Behavioral Health Services for further treatment. She did experience some vocal hoarseness, which she reports is chronic, exacerbated by her being hyperverbal on the day of discharge. It is not suspected that she has any significant vocal chord or pharyngeal injury from her ingestion, as she has no throat pain or dysphagia. DISCHARGE MEDICATIONS: Please see official discharge medication reconciliation sheet in chart , continue home Valium, continue other home medications. DISCHARGE INSTRUCTIONS: Transfer to inpatient Behavioral Health. TIME SPENT: Greater than 30 minutes spent on daily care, as well as discharge preparation.
--- NOTE | 2016-12-23 10:18 | ASDISCHSUM ---
Discharge Information Plan Status:Psych Placement/Petitioned Medically Cleared to Leave: Discharge Date:12/22/2016 05:24 PM CM D/C Disposition:Other Psych, Not [facility] ADT D/C Disposition:Psych Hosp/Unit w Plan Readm Projected Discharge Date:12/22/2016 05:24 PM Transportation at D/C:ALS/BLS Discharge Delay Reason: Follow-Up Date:12/22/2016 05:24 PM Discharge Slot: Final Diagnosis:Suicide attempt/injestion Placement Information Patient Contact Information Contact Name:KRISTINA Relationship: Address:[address] Home Phone: City:[place] Alternate Phone: State/Zip Code:[place] [address] Email: Financial Information Financial Class: Primary Plan Desc:MEDICARE INPATIENT Primary Plan Number:[id number] Secondary Plan Desc:[employer]/MDR SUPPLEMENT Secondary Plan Number:[id number] Assessment Information [facility] CM Progress Note CM Note CM Note Notes: 71 year old female admitted after suicide attempt-chemical injestion. Patient has a hx of severe depression, anxiety, other suicide attempts, Cervical dystonia. Will needs to be medically cleared before psych can eval. Will need mental health placement. Date Signed: 12/21/2016 09:05 AM Electronically Signed By:Iveth Baldwin LCSW Case Management Discharge Plan Note Case Management Discharge Discharge Order Complete? Answers: Yes Patient to Obtain Answers: Independently Medications Transportation Arranged Answers: [facility] Transport will Pick (Date 12/22/2016 05:00 PM & Time) ARPANALA Complete Answers: Yes Case Management Transport Answers: Yes Form Complete Faxed Final Orders Answers: Yes Agency/Facility Transfer Answers: Yes Report Printed & Faxed to Receiving Agency Family Notified Answers: Yes Discharge Comments Notes: Patient is an EMTALA transfer to [facility]. Dr Encinas and MAGUI Bell completed EMTALA; [id number] completed all transport arrangements and paperwork. MAGUI Bell completed RN report phone call. Date Signed: 12/22/2016 03:20 PM Electronically Signed By:Odalis Ackerman RN Intervention Information Intervention Type:*Occurence 72 Date of Service:12/23/2016 09:50 AM Patient Type:Inpatient Staff Member:MAGUI Wolf Susan Hours: Discipline: Severity: Comment:
== END 2016-12-22 17:24 | DRG 918 ==
LOC: EEVIPCON 23:41 → INTOOBSV 23:41 → F2N 12-21 00:17 → OBSVTOIN 12-21 12:26
PROVIDERS: ADMIT Student in an Organized Health Care Education/Training Program; ATTEND Internal Medicine
DX: T52.8X2A Toxic effect of other organic solvents, intentional self-harm, initial encounter (principal); T52.0X2A Toxic effect of petroleum products, intentional self-harm, initial encounter; T42.4X2A Poisoning by benzodiazepines, intentional self-harm, initial encounter; T51.0X2A Toxic effect of ethanol, intentional self-harm, initial encounter; F32.9 Major depressive disorder, single episode, unspecified; E87.2 Acidosis; G24.9 Dystonia, unspecified; F13.20 Sedative, hypnotic or anxiolytic dependence, uncomplicated; F41.9 Anxiety disorder, unspecified; E03.9 Hypothyroidism, unspecified
CPT/HCPCS: 80305; 82947-QW; 92610-GN; G0378; G0480; G8996-GN-CH; G8997-GN-CH; G8998-GN-CH; J2060; J2405

== ENCOUNTER 2017-10-12 17:00 | Emergency (ER) | payer OTHER, MEDICARE ==
--- NOTE | 2017-10-12 17:18 | EDPHY ---
H & P Stated Complaint: left wrist injury during fall. 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 She has a dinner fork deformity to her left wrist. She has a history of depression, anxiety and cervical dystonia. She denies fainting or chest pain tonight. No recent fevers or illness. No head or neck injury. Severity: 910 Modifying factors: Movement REVIEW OF SYSTEMS: Constitutional: denies: chills, fever, recent illness, recent injury EENTM: denies: blurred vision, double vision, nose congestion Respiratory: denies: cough, shortness of breath Cardiac: denies: chest pain, irregular heart rate, lightheadedness, palpitations Gastrointestinal/Abdominal: denies: abdominal pain, diarrhea, nausea, vomiting, blood streaked stools Genitourinary: denies: dysuria, frequency, hematuria, pain Musculoskeletal: See HPI Skin: denies: lesions, rash, jaundice, bruising Neurological: denies: headache, numbness, paresthesia, tingling, dizziness, weakness Hematologic/Lymphatic: denies: blood clots, easy bleeding, easy bruising Immunologic/allergic: denies: HIV/AIDS, transplant 10 systems reviewed and negative except as noted EXAM: GENERAL: Well-appearing, well-nourished and in no acute distress. HEAD: Atraumatic, normocephalic. EYES: Pupils equal round and reactive to light, extraocular movements intact, sclera anicteric, conjunctiva are normal. ENT: TMs normal, nares patent, oropharynx clear without exudates. Moist mucous membranes. NECK: Normal range of motion, supple without lymphadenopathy or JVD. LUNGS: Breath sounds clear to auscultation bilaterally and equal. No wheezes rales or rhonchi. HEART: Regular rate and rhythm without murmurs, rubs or gallops. ABDOMEN: Soft, nontender, normoactive bowel sounds. No guarding, no rebound. No masses appreciated. BACK: No CVA tenderness, no spinal tenderness, step-offs or deformities EXTREMITIES: Left wrist with dinner fork deformity. Normal pulses and movement distally. NEUROLOGICAL: Cranial nerves II through XII grossly intact. Normal speech, normal gait. 5/5 strength, normal movement in all extremities, normal sensation , normal reflexes PSYCH: Normal mood, normal affect. SKIN: No open fracture, Warm, dry, normal turgor, no visible rashes or lesions. Source: Patient, Family Exam Limitations: No limitations - Personal History Tetanus Vaccine Date: < 10 years - Medical/Surgical History Hx Asthma: No Hx Chronic Respiratory Disease: No Hx Diabetes: No Hx Cardiac Disease: No Hx Renal Disease: No Hx Cirrhosis: No Hx Alcoholism: No Hx HIV/AIDS: No Hx Splenectomy or Spleen Trauma: No Other PMH: cervical dystonia, hypothyroid, UTIs, Depression, anxiety - Family History Significant Family History: Asthma - Social History Smoking Status: Never smoked Alcohol Use: Sober Drug Use: None Constitutional: Initial Vital Signs Temperature (C) 36.2 C 10/12/17 17:05 Heart Rate 70 10/12/17 17:05 Respiratory Rate 20 10/12/17 17:05 Blood Pressure 160/90 H 10/12/17 17:05 O2 Sat (%) 97 10/12/17 17:05 O2 Delivery Mode Room Air Allergies/Adverse Reactions: No Known Allergies Allergy (Verified 10/12/17 17:10) Home Medications: Medication Instructions Recorded Levothyroxine [Synthroid 88 mcg 88 mcg PO DAILY06 11/19/14 (*)] Venlafaxine Xr [Effexor Xr 75MG 75 mg PO BID 11/19/14 (*)] Diazepam [Valium 5 MG (*)] 5 mg PO DAILY 12/20/16 Acetaminophen [Tylenol 325mg (*)] 325 mg PO DAILY PRN 12/21/16 Diazepam [Valium 5 MG (*)] 5 - 10 mg PO HS 12/21/16 Mirtazapine [Remeron] 22.5 mg PO HS 12/21/16 Medical Decision Making - Diagnostics Imaging Results: Imaging Impressions Wrist X-Ray 10/12/17 17:08 Impression: 1. Complex displaced and posteriorly angulated fracture distal left radius. 2. Possible tiny chip fracture distal ulnar styloid. Wrist X-Ray 10/12/17 17:38 Impression: 1. Good alignment of complex distal left radial fracture postreduction. 2. Small chip fracture ulnar styloid tip. Imaging: Discussed imaging studies w/ call taker Radiologist Procedures: Orthopedic reduction: The patient was anesthetized with a hematoma block 10 cc of 0.5% bupivacaine. Then with gentle traction her distal radius was realigned successfully. Repeat x-rays show good alignment. Sugar-tong splint was then placed. Procedure: Splint placement. A sugar-tong plaster splint was applied. After application of the splint I returned and re-examined the patient. The splint was adequately immobilizing the joint and distal to the splint the patient's circulation and sensation was intact. ED Course/Re-evaluation: Patient tolerated reduction well. We discussed follow-up with Orthopedics in 1 week for casting and reimaging. She and her understand in her happy with this plan. They declined further workup or testing at this time. She did have me look at her left little toe as well because she had some pain there. He was not tender or bruised or swollen. She declined imaging. She declines prescription pain medication. Differential Diagnosis: Partial list of the Differential diagnosis considered include but were not limited to; Colles fracture, navicular bone fracture and although unlikely based on the history and physical exam, I also considered open fracture, nerve injury, vascular injury. I discussed these differential diagnoses and the plan with the patient as well as the usual and expected course. The patient understands that the diagnosis is provisional and that in medicine we are not always correct and that further workup is often warranted. Usual and customary warnings were given. All of the patient's questions were answered. The patient was instructed to return to the emergency department should the symptoms at all worsen or return, otherwise to followup with the physician as we discussed. Departure - Departure Disposition: Home, Routine, Self-Care Clinical Impression: Fracture, Colles, left, closed Qualifiers: Encounter type: initial encounter Qualified Code(s): S52.532A - Colles' fracture of left radius, initial encounter for closed fracture Condition: Fair Instructions: Wrist Fracture in Adults (ED) Additional Instructions: Follow-up in 1 week with Orthopedics for x-rays and cast placement. Please ice the wrist area for 20 minutes at a time for the next 2-3 days while awake. Wear the sling while up and about , may take off at night for sleep . Keep elevated as much as possible. Return to clinic /Emergency for decreased sensation in the arm hand and or uncontrolled pain or other concerns. . Referrals: Daren Hoover MD [Medical Doctor] - 5-7 days, call for appt.
[2017-10-12 18:37] VITALS: BP 139/69
== END 2017-10-12 18:34 | disposition home or self-care (01) ==
LOC: CED 17:00
PROC: 0PSJXZZ Reposition Left Radius, External Approach (ICD-10-PCS; principal; 2017-10-12)
DX: S52.572A Other intraarticular fracture of lower end of left radius, initial encounter for closed fracture (principal); W19.XXXA Unspecified fall, initial encounter; Y92.019 Unspecified place in single-family (private) house as the place of occurrence of the external cause; Y99.8 Other external cause status
CPT/HCPCS: 25605; 73110; 99284; A4565

== ENCOUNTER 2017-10-14 18:04 | Emergency (ER) | payer OTHER, MEDICARE ==
[2017-10-14 18:17] VITALS: BP 134/88
--- NOTE | 2017-10-14 18:50 | EDPHY ---
H & P Time Seen by Provider: 10/14/17 18:26 HPI/ROS: CHIEF COMPLAINT: Left hand swollen, bruised looking. HISTORY OF PRESENT ILLNESS: Patient seen here on Tuesday after Colles fracture with hematoma block and reduction. She presents today concerned about swelling and discoloration to her fingers. Her noticed this today. She denies increased pain, numbness or tingling. She has been using a sling but because the splint keeps her arm in some extension she is unable to use the sling to elevate her wrist. She does have follow-up arranged with Orthopedics early next week with Dr. Hoover. REVIEW OF SYSTEMS: Negative except per HPI. General Appearance: Alert, no distress. Eyes: Pupils equal and round no icterus Respiratory: No respiratory distress Neurological: Awake, alert, no focal deficits. Skin: Warm and dry, no rashes. Musculoskeletal: Neck is supple nontender. Left upper extremity is in a long-arm splint. Exposed fingers are edematous and bruised. Normal sensation, movement, cap refill. Psychiatric: Patient is oriented X 3, there is no agitation. Smoking Status: Never smoked Constitutional: Initial Vital Signs Temperature (C) 36.6 C 10/14/17 18:15 Heart Rate 65 10/14/17 18:15 Respiratory Rate 18 10/14/17 18:15 Blood Pressure 134/88 H 10/14/17 18:15 O2 Sat (%) 94 10/14/17 18:15 O2 Delivery Mode Room Air Allergies/Adverse Reactions: No Known Allergies Allergy (Verified 10/12/17 17:10) Home Medications: Medication Instructions Recorded Levothyroxine [Synthroid 88 mcg 88 mcg PO DAILY06 11/19/14 (*)] Venlafaxine Xr [Effexor Xr 75MG 75 mg PO BID 11/19/14 (*)] Diazepam [Valium 5 MG (*)] 5 mg PO DAILY 12/20/16 Acetaminophen [Tylenol 325mg (*)] 325 mg PO DAILY PRN 12/21/16 Diazepam [Valium 5 MG (*)] 5 - 10 mg PO HS 12/21/16 Mirtazapine [Remeron] 22.5 mg PO HS 12/21/16 Medical Decision Making Differential Diagnosis: Differential diagnosis includes but is not limited to compartment syndrome, normal post fracture changes, nerve injury. After evaluation suspect that patient needs to elevate her hand more and perhaps use ice. No evidence of compartment syndrome or neurovascular compromise. Patient's splint is holding well and reviewed x-rays showing excellent reduction by Dr. Sahni. Discussed further home care including elevation ice more often. She has orthopedic follow -up and understands return precautions. No evidence of compartment syndrome but patient warmed of signs and symptoms. Stable for discharge. Departure - Departure Disposition: Home, Routine, Self-Care Clinical Impression: Aftercare for cast or splint check or change Condition: Good Instructions: Closed Reduction (ED) Additional Instructions: Keep the wrist elevated above the level of her heart as much as possible. Also ice for pain as discussed. Return to the emergency department if your hands or fingers get numb, a cold and blow, can't move the more the pain is too severe. Otherwise follow up with the orthopedist as scheduled next week. Referrals: Griselda Gonzalez MD [Primary Care Provider] - As per Instructions Daren Hoover MD [Medical Doctor] - As per Instructions
== END 2017-10-14 19:10 | disposition home or self-care (01) ==
LOC: CED 18:04
DX: M79.89 Other specified soft tissue disorders (principal); Z47.89 Encounter for other orthopedic aftercare

== ENCOUNTER 2017-10-27 14:55 | Emergency (ER) | payer OTHER, MEDICARE | END 2017-10-27 15:10 | disposition left against medical advice (07) | LOC: CED 14:55 | DX: Z53.21 Procedure and treatment not carried out due to patient leaving prior to being seen by health care provider (principal) ==

== ENCOUNTER 2017-11-15 09:27 | Inpatient (IN) | payer OTHER, MEDICARE ==
--- NOTE | 2017-11-15 09:42 | EDPHY ---
H & P Stated Complaint: depression - Personal History Current Tetanus/Diphtheria Vaccine: Yes Current Tetanus Diphtheria and Acellular Pertussis (TDAP): Yes Tetanus Vaccine Date: < 10 years - Medical/Surgical History Hx Asthma: No Hx Chronic Respiratory Disease: No Hx Diabetes: No Hx Cardiac Disease: No Hx Renal Disease: No Hx Cirrhosis: No Hx Alcoholism: No Hx HIV/AIDS: No Hx Splenectomy or Spleen Trauma: No Other PMH: cervical dystonia, hypothyroid, UTIs, Depression, anxiety/ essiential tremors - Social History Smoking Status: Never smoked Time Seen by Provider: 11/15/17 09:41 HPI/ROS: CHIEF COMPLAINT: Worsening depression HISTORY OF PRESENT ILLNESS: 72-year-old female arrives via private vehicle with her for complaints of worsening depression. Denies suicidal or homicidal ideation. She does state that she is interested in a program in [facility] where she may have medically assisted suicide however is not actively endorsing suicidal ideation. Patient does have prior hospital admission for intentional ingestion of caustic substances. I specifically inquired about this and she denies intentional ingestion of non food substance. REVIEW OF SYSTEMS: 10 systems reviewed and negative with the exception of the elements mentioned in the history of present illness PAST MEDICAL & SURGICAL HISTORY: History of depression, anxiety, prior suicide attempt with hospitalization. SOCIAL HISTORY: Nonsmoker. No drug use. PHYSICAL EXAM (Prior to examination, patient consented to physical exam, hands were washed and my usual and customary physical exam procedures followed) 1) GENERAL: Well-developed, well-nourished, alert and oriented. Appears to be in no acute distress. Depressed, flat affect 2) HEAD: Normocephalic, atraumatic 3) HEENT: Pupils equal, round, reactive to light bilaterally. Sclera anicteric. 4) NECK: Full range of motion, no meningeal signs. 5) LUNGS: Clear auscultation bilaterally, no wheezes, no rhonchi, no retractions. 6) HEART: Regular rate and rhythm, no murmur, no heave, no gallop. 7) ABDOMEN: No guarding, no rebound, no focal tenderness, negative McBurney's, negative Cheng's, negative Rovsing's, negative peritoneal sign, 8) MUSCULOSKELETAL: Moving all extremities, no focal areas of tenderness, no obvious trauma. No peripheral edema or discoloration. No signs of injury 9) BACK: No CVA tenderness, no midline vertebral tenderness, no fluctuance, no step-off, no obvious trauma, no visual or palpable abnormality. 10) SKIN: No rash, no petechiae. 11) Psychiatric: Patient is oriented X 3, Depressed, flat affect DIFFERENTIAL DIAGNOSIS: In no particular order including but not limited to depression, anxiety, suicidal ideation, suicide attempt, homicidal ideation (Ricky,Karla Eileen) Constitutional: Initial Vital Signs Temperature (C) 36.4 C 11/15/17 09:34 Heart Rate 59 L 11/15/17 09:34 Respiratory Rate 16 11/15/17 09:34 Blood Pressure 118/76 11/15/17 09:34 O2 Sat (%) 95 11/15/17 09:34 O2 Delivery Mode Room Air Allergies/Adverse Reactions: No Known Allergies Allergy (Verified 11/15/17 09:31) Home Medications: Medication Instructions Recorded Levothyroxine [Synthroid 88 mcg 88 mcg PO DAILY06 11/19/14 (*)] Cholecalciferol Vit D3 [Vitamin D3 5,000 units PO DAILY 11/15/17 2000 units tab (OTC)] Cyanocobalamin [Vitamin B12 (*)] 1,000 mcg PO DAILY 11/15/17 Ibuprofen [Motrin (*)] 400 mg PO Q8 PRN 11/15/17 Mirtazapine [Remeron] 30 mg PO HS 11/15/17 Keeling-3 Fatty Acids [Fish Oil 1000 1,000 mg PO DAILY 11/15/17 mg (*)] Omeprazole 40 mg PO DAILY 11/15/17 Venlafaxine Xr [Effexor Xr] 150 mg PO DAILY 11/15/17 clonazePAM [klonoPIN (*)] 1 mg PO HS 11/15/17 traZODone [traZODONE 100MG (*)] 100 mg PO HS 11/15/17 Medical Decision Making ED Course/Re-evaluation: 9:51 a.m.: I consulted with David Amezquita from mental health services who is familiar with the patient, informs me that she will more than likely necessitate 3 [facility] ECT admission. I do not think she meets criteria for an M1 at this time, she is in the ER voluntarily. The patient's psychiatric nurse practitioner, Caprice Bowers had call the ER previously requested call back. 9:55 a.m.: Left phone message with psychiatric nurse practitioner Caprice Bowers 10:35 a.m.: Consultation with psychiatric nurse practitioner Caprice Bowers ( phone [phone]) who recommends patient be admitted, has already spoke with Dr. Sekou Huang about ECT. 11:02 a.m.: Informed by David Amezquita the patient has been accepted to [address] [place] [address], accepting physician Dr. Sekou Huang for ECT. EMTALA paperwork completed. Care of patient under supervision of secondary supervising physician Dr Urban Garcia with whom I discussed case. ( Karla García) Other Provider: PHYSICIAN DOCUMENTATION: The patient was evaluated and managed by the Physician Manager Of [employer] and myself. I have reviewed the chart and agree with the findings and plan of care as documented. In addition, I examined the patient myself at 1156. History confirmed as worsening depression. Physical findings as follows: Alert, conversant. 12-lead EKG interpreted by me; official reading is in computer system. My interpretation is sinus rhythm rate 76 with long QT, nonspecific T-wave flattening. I am the secondary supervising physician. (Urban Garcia) - Data Points Laboratory Results: Laboratory Results 11/15/17 10:10 11/15/17 10:10 11/15/17 11/15/17 11/15/17 12:05 10:10 10:10 WBC 7.33 10^3/uL 10^3/uL (3.80-9.50) RBC 4.92 10^6/uL 10^6/uL (4.18-5.33) Hgb 15.0 g/dL g/dL (12.6-16.3) Hct 45.7 % % (38.0-47.0) MCV 92.9 fL fL (81.5-99.8) MCH 30.5 pg pg (27.9-34.1) MCHC 32.8 g/dL g/dL (32.4-36.7) RDW 13.1 % % (11.5-15.2) Plt Count 209 10^3/uL 10^3/uL (150-400) MPV 10.7 fL fL (8.7-11.7) Neut % (Auto) 58.7 % % (39.3-74.2) Lymph % (Auto) 28.5 % % (15.0-45.0) Bonner % (Auto) 9.3 % % (4.5-13.0) Eos % (Auto) 2.5 % % (0.6-7.6) Baso % (Auto) 0.7 % % (0.3-1.7) Nucleat RBC Rel Count 0.0 % % (0.0-0.2) Absolute Neuts (auto) 4.31 10^3/uL 10^3/uL (1.70-6.50) Absolute Lymphs (auto) 2.09 10^3/uL 10^3/uL (1.00-3.00) Absolute Monos (auto) 0.68 10^3/uL 10^3/uL (0.30-0.80) Absolute Eos (auto) 0.18 10^3/uL 10^3/uL (0.03-0.40) Absolute Basos (auto) 0.05 10^3/uL 10^3/uL (0.02-0.10) Absolute Nucleated RBC 0.00 10^3/uL 10^3/uL (0-0.01) Immature Gran % 0.3 % % (0.0-1.1) Immature Gran # 0.02 10^3/uL 10^3/uL (0.00-0.10) Sodium 140 mEq/L mEq/L (135-145) Potassium 3.9 mEq/L mEq/L (3.3-5.0) Chloride 105 mEq/L mEq/L (97-110) Carbon Dioxide 26 mEq/l mEq/l (22-31) Anion Gap 9 mEq/L mEq/L (8-16) BUN 24 mg/dL H mg/dL (7-23) Creatinine 0.9 mg/dL mg/dL (0.6-1.0) Estimated GFR > 60 Glucose 84 mg/dL mg/dL (70-100) Calcium 9.5 mg/dL mg/dL (8.5-10.4) TSH 4.990 uIU/mL H uIU/mL (0.465-4.680) Salicylates < 1.0 mg/dL L mg/dL (2.0-20.0) Urine Opiates Screen NEGATIVE (NEGATIVE) Acetaminophen < 10 mcg/mL L mcg/mL (10-30) Urine Barbiturates NEGATIVE (NEGATIVE) Ur Phencyclidine Scrn NEGATIVE (NEGATIVE) Ur Amphetamine Screen NEGATIVE (NEGATIVE) U Benzodiazepines Scrn NEGATIVE (NEGATIVE) Urine Cocaine Screen NEGATIVE (NEGATIVE) U Marijuana (THC) Screen NEGATIVE (NEGATIVE) Ethyl Alcohol < 10 mg/dL mg/dL (0-10) Departure - Departure Disposition: [facility] IP Clinical Impression: Severe major depression Condition: Fair
--- NOTE | 2017-11-15 10:38 | CPEKG ---
Test Reason : OPEN Blood Pressure : / mmHG Vent. Rate : 076 BPM Atrial Rate : 049 BPM P-R Int : 173 ms QRS Dur : 090 ms QT Int : 452 ms P-R-T Axes : 064 -21 085 degrees QTc Int : 509 ms Sinus rhythm Borderline left axis deviation Nonspecific T abnrm, anterolateral leads Prolonged QT interval Confirmed by Urban Garcia ([id number]) on 11/15/2017 10:38:12 AM Referred By: Confirmed By:Urban Garcia
[2017-11-15 10:50] LABS: PLATELET COUNT 209 10^3/uL (150-400)
--- NOTE | 2017-11-15 12:59 | PDCONSULT ---
Chief Gauger Note: Argelia Stahl is a 72 yo F with a PMHx of depression, hypothyroidism, cervical dystonia, GERD who presents to [facility] for worsening depression. She reports that she has had worsening depressive symptoms lately including depressed mood, lack of energy. She does not believe anything she has tried has worked. She is interested in traveling to [facility] to be enrolled in their assisted suicide program. She has no plans for suicide currently. She reports mild neck discomfort at this time. She also recently broke her L wrist after a mechanical fall. Physical Exam: Gen: Laying with eyes closed, appears uncomfortable HEENT: PERRLA, EOMI, cervical muscle tightness CV: RRR, no m/r/g Lungs: CTA b/l Abd: S/NT/ND Ext: L wrist in cast MSK: No muscle tenderness Neuro: Oriented x3, no focal deficits Skin: Warm, normal color A&P: Argelia Stahl is a 72 yo F with a PMHx of depression, hypothyroidism, cervical dystonia, GERD who presents to [facility] for worsening depression. Depression - Defer to IP psych team for further management - Plan per ED note is ECT Hypothyroidism - Takes Synthroid 88 mcg qd at home - TSH in ED elevated to 4.9 - Would check Free T4 to evaluate for Hypothyroidism contributing to depression , may require an uptitration of Synthroid GERD - Continue home Omeprazole Cervical Dystonia - Notes hx of receiving Botox injections - Also was taking Benzos for this, rx by Neurology according to - Addition of muscle relaxant, such as Flexeril PRN, may be helpful Patient to be transferred from [facility] ED and admitted to IP Behavior[facility]
--- NOTE | 2017-11-15 13:40 | ASMTTLCEVL ---
TLC Evaluation - Basic Information Evaluation Start Date and 11/15/2017 11:30 AM Time Hospital Status Answers: Voluntary Patient statement Notes: Worsening depression. I am interested in a program in [place] where they have medically assisted suicide, but Im not currently feeling suicidal. Narrative Notes: Pt is a 72 yo, , retired, female with long history of treatment resistant major depressive disorder and generalized anxiety, self-presented to [facility] ED on a voluntary basis, accompanied by her , Sekou Stahl [phone], at the advisement of [facility] Out[facility] nurse practitioner, Caprice Bowers, to present to the ED for medical clearance, EKG, then voluntary admission to [facility] [address] Sekou Huang for ECT treatment. Dr. Huang had conducted an outpatient ECT consultation on 09/23/2016. The following information is based predominantly upon that summary report. Pt stated her first major depressive episode was age of 27 while in graduate school. She was treated with multiple medications without benefit and then was given a course of ECT with an excellent response. She then had a relapse in 2000 for which she received ECT again with good results after 6 treatments. That relapse occurred after the of her sister. Pt has previously tried Celexa, Effexor, Seroquel, Risperdal, Zyprexa, Klonopin and Ativan with limited benefit. Pt has a more recent history of extreme volatility and numerous hospitalizations. In the fall and winter of 2015, she reported a chaotic pattern of having relapsed on her depression after about 3 years of stability. She stated the trigger for this was fear for her husbands health as she was convinced that he was going to . She stated she could not deal with these thoughts or the fear of being alone and took an overdose of Klonopin. At that time, her took her to the hospital but she was not hospitalized. She then returned home and took another overdose 2-3 weeks later due to ongoing suicidal ideations in which she said was an impulsive desire to overdose. She was then taken to the ED at [facility] and was transferred to [facility] where she was hospitalized for 2 weeks. Diagnosis History Notes: Treatment resistant major depressive disorder and generalized anxiety disorder. Prior suicide attempts Notes: In 2015, pt took an overdose of Klonopin when fearing that her was going to and she could not deal with these thoughts or the fear of being alone. She took another overdose 2-3 weeks later and was hospitalized at [facility] for 2 weeks. After that hospitalization, she had a panic attack and a neurology appointment and was sent to the [facility] ED. There, they placed her on an M1 hold and transferred her to [facility] for 2 weeks. She was discharged to home again after that and stated this time I really wanted to . She drank a concoction of different mineral spirits including turpentine and was hospitalized at the ICU at [facility] and then transferred back to [facility] for 1-2 [address] [facility] where she received care from 01/12/16 to 02/11/16. She also received 7 acute course right unilateral ECT treatments with excellent benefit. Prior hospitalizations Notes: Pt was hospitalized at [facility] for 2 weeks in 2016 following a second overdose. After that hospitalization, she had a panic attack and a neurology appointment and was sent to the [facility] ED. There, they placed her on an M1 hold and transferred her to [facility] for 2 weeks. She was discharged to home again after that and stated this time I really wanted to . She drank a concoction of different mineral spirits including turpentine and was hospitalized at the ICU at [facility] and then transferred back to [facility] for 1-2 weeks [address] to [facility] where she received care from 01/12/16 to 02/11/16. She also received 7 acute course right unilateral ECT treatments with excellent benefit. Discharge summary from Dr. Chema Guan stated that she began to refuse treatments because she simply felt better and thought she did not need any further treatments. Dr. Guan considered seeking court ordered treatments so that she had a full course including continuation of maintenance treatments, though because she stayed stable over several weeks without the treatments, he allowed her to be discharged to home. In addition to the improvements in her mood, she stated that she had a near resolution of a chronicle cervical dystonia during the course of ECT. She stated that this chronic pain is one of the other reason she has depression, anxiety and thoughts of suicide. Over the course of the several months in the fall, she stated that she contemplated other means of suicide including sitting in a car in the garage for awhile but not starting it and stated that she was isolating in her home because I could not do anything. I just laid in bed. She stated that her mood was intensely depressed, that she was helpless and hopeless having constant thoughts of suicide and frequent panic attacks. She stated that these symptoms were similar to what she suffered from in the past but much more intense. She described being afraid of everything and that she is mostly afraid of dying and of her family members dying. She reported severely depressed mood, poor energy and motivation, spending most of her time in bed. She feels helpless and hopeless with pervasive suicidal ideation and despite the fear of dying. She has frequent panic attacks, pervasive general anxiety and excessive worries and fears. She has frequent crying episodes which her stated is not consistent with her previous life pattern. She is afraid to be alone and will often bring someone into her home if her leaves for any period of time. Treatment Responses Notes: Pt has a history of treatment resistant major depressive disorder and generalized anxiety disorder, She has responded to previous ECT treatments with excllent benefit. History of violence Notes: No reported history of violence/aggression. Therapist: Caprice Bowers APN Psychiatrist: Previous outpatient ECT psychiatrist was Chema Guan MD. Current prescriber through [facility] services is Caprice Bowers APN. Medications (name, dosage, route, freq uency) Notes: Ibuprofen 400 mg PO Q8 PRN; Vitamin B12 1000 mcg PO daily; Vitamin D3 5000 units Po daily; Trazodone 100 mg PO HS; Effexor XR 150 mg PO daily; Omeprazole 40 mg PO daily; Remeron 30 mg PO HS; Synthroid 88 mcg PO daily 0600; Klonopin 1 mg PO HS; and Fish Oil 1000 mg PO daily. Allergies/Reaction Notes: NKDA. Sleep Notes: Pt reported decreased sleep but often spending her time in bed. Appetite Notes: Pt reported decreased appetite. Medical/Surgical history Notes: Significant for hypothyroidism due to a thyroid ablation, cervical dystonia since 2003 which has been treated with Botox injections, bladder stone removal about 1984, umbilical hernia repair 1976, wisdom teeth removal in 1966. On 10/12/17, she was treated at [facility] ED following a mechanical fall and landed on outstretched left wrist resulting in complex distal left radial fracture and postreduction and sugar-tong splint placed. Substance use history (frequency, intensity, his tory, duration) Notes: Noncontributory. Family composition Notes: Pt was the youngest of 3 sisters, 1 of whom is . The other 1 is 7 years older and lives in [place]. Need for family Answers: Yes participation in patient's care Family psychiatric/substance abuse history Notes: Pt has a sister with chronic depression and a sister who committed suicide at the age of 62. That sister reportedly had depression as well. Pts older sister had alcoholism and depression, had ECT and at the age of 62 from suicide. Middle sister has some anxiety. Pts mother had alcoholism, stopped at the age of 52 because of liver problems. Developmental history Notes: Pt was born and raised in [place] and was the youngest of 3 sisters, 1 of whom is . The other 1 is 7 years older and lives in [place]. There is no previously reported history of childhood TBIs, LOC or concussions. There is no previously reported history of childhood physical, emotional or sexual abuse/trauma. Abuse concerns Answers: None Marital status/children Notes: Pt has been to , Sekou Stahl, for 48 years. She has a son. Living situation Notes: Pt moved to [place] 4 years ago to be near her children. She lived in [place] for most of the time prior to moving to [place]. Sexual history/orientation Notes: Not active. Heterosexual. Peer support/family strengths Notes: Pts , her son, live locally and has her daughter. Her daughter had left her over a year ago and had stated that one of the primary conflicts was the said he could not commit to a relationship because of all your mothers suicide attempts and grandson had moved to [place]. She has one close friend here and a long-time friend in [place] with whom she is in frequent contact. Education level/history Notes: Pt has a Masters degree in art. 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 Notes: None. Legal Notes: No reported legal/arrest history. Mormon/Spiritual Notes: She attends a [employer] and has social contacts through the [employer]. Pt questions her sikh tasia which has been important to her and stated why does God take away all that you love. Leisure Notes: Not reported. Pt often spends much of the day in bed. Collateral Notes: Per prior records. Patient's strengths Answers: Honest (Please select at least TWO strengths): Motivated for Treatment Supportive Family Willingness [facility] Evaluation - Mental Status Exam Appearance: Answers: Appropriate Clean Unkempt Eye Contact: Answers: Avoiding Mood: Answers: Depressed Sad Affect: Answers: Blunted Calm Congruent w/ Mood Flat Sad Subdued Behavior: Answers: Cooperative Fatigued Passive Sleeping Withdrawn Speech: Answers: Relevant Logical Clear Coherent Delayed Slowed Soft Thought Process: Answers: Organized Oriented Alert Intact Insight: Answers: Fair Judgement: Answers: Fair Depression Answers: Crying Spells Signs/Symptoms: Difficulty Concentrating Diminished Interest Diminished Pleasure Flat Affect Hopelessness Psychomotor Retardation Sad Mood Withdrawn Worthlessness Anxiety Signs/Symptoms Answers: Generalized Anxiety Hallucinations: Answers: None Current Stage of Change Answers: Action Pt reported to have Answers: Yes suicidal/self-injuring ideation/behavior? Pt reported to be making Answers: No suicidal/self-injuring threats? Pt reported to have Answers: No aggression/assault ideation/behavior? Pt reported to be making Answers: No aggression/assault threats? Pt exhibits inability to Answers: Yes care for self/grave disability? Ideation/behavior is Answers: Yes chronic? Patient has a specific Answers: No plan? Pt has access to means to Answers: Yes execute the plan? Ideation involves Answers: No serious/lethal intent? Ideation has Answers: No delusional/hallucinatory content? History of Answers: Yes suicidal/self-injuring ideation, behavior, or threats? History of Answers: No aggressive/assaultive ideation, behavior, or threats? History of serious Answers: No physical harm to self/others while in treatment setting? [facility] Evaluation - Suicide/Homicide Risk Suicide Risk Factors: Answers: < 20 or > 40 Years of Age Anhedonia Anxiety/Panic, Severe Cluster "B" D/O or Traits Flat Affect Hopelessness Hx of Suicide Attempt by Family Member Major Depression Prior Suicide Attempt(s) Homicide/violence risk Answers: None factors: Current Suicidal Answers: No Ideation? Current Suicidal Ideation Answers: No in the Past 48 Hours? Current Suicidal Ideation Answers: No in the Past Month? Current Suicidal Answers: No Ideation, Worst Ever? Suicide Internal Answers: Absence of Psychosis Protective Factors: Mormon Beliefs Suicide External Answers: Positive Therapeutic Protective Factors: Relationships Responsibility to Children Ranking of patient's Answers: Moderate suicidal risk: Ranking of patient's Answers: Low homicidal risk: [facility] Evaluation - Wrap-up AXIS I Diagnosis (include DSM-V and ICD-10 codes), must also be entered in [employer], which is the source of truth. Notes: Major Depressive Disorder, recurrent, severe 296.33 (F33.2) Generalized Anxiety Disorder 300.02 (F41.1) Per directive and order from [facility] on-call psychiatrist, Sekou Huang MD, Dr. Huang agreed to accept pt for voluntary admission to . Evaluation End Date and 11/15/2017 01:35 PM Time (HH:MM): Date Signed: 11/15/2017 01:40 PM Electronically Signed By:David Blankenship
--- NOTE | 2017-11-15 13:42 | ASMTTCLDSP ---
TLC Discharge Disposition Disposition: Answers: Admit If Answers: Yes DISCHARGED: Patient/family given suicide hotline info & SAMHSA brochure? Disposition Notes: Notes: Admit 3N. Discharge Concerns/Recommendations: Notes: Per directive and order from [facility] on-call psychiatrist, Sekou Huang MD, Dr. Huang agreed to accept pt for voluntary admission to . Was patient given the Answers: Yes Inpatient Behavioral Health Prohibited Belongings List while in the ED? For inpatient Sekou Huang MD admission, the following psychiatrist agreed [facility] accept [facility] Date Signed: 11/15/2017 01:41 PM Electronically Signed By:David Blankenship
[2017-11-15] MEDS ORDERED: MAG HYDROX/AL HYDROX/SIMETH 30 ML UDCUP PO PRN (14:39)
[2017-11-15] MEDS: MIRTAZAPINE 30 MG TAB PO SCH (21:04)
[2017-11-15] MEDS: clonazePAM 1 MG TAB PO SCH (21:04)
[2017-11-15] MEDS: traZODone 100 MG TAB PO SCH (21:04)
--- NOTE | 2017-11-16 09:02 | ASMTBHMTP ---
Master Treatment Plan Master Treatment Plan Answers: Depressed Mood with for: Suicidal Ideation Date: 11/16/2017 Diagnosis on Admission: Major Depressive Disorder, recurrent, severe 296.33 (F33.2) Expected length of stay: 5-7 Reason for admission: Notes: The patient refused to participate in the Master Treatment Plan. She was observed laying down, opening her eyes briefly before closing them again, and occasionally whispering. The patient was undertalkative; she spoke quietly and softly. The patient's stated reason for admission was "I just don't want to..." The patient refused to elaborate. Patient's stated presenting problems: Notes: The patient's response was delayed; she stated, "just everything" before closing her eyes. Patient's goals for treatment: Notes: Unable to assess Patient's strengths: Notes: Unable to assess Identify supports outside of hospital: Notes: Unable to assess Discharge criteria: Notes: Suicidal ideation will resolve and the patient will have a plan to safely mange recurrent suicidal ideation. Initial disposition plan/considerations: Notes: Unable to assess Master Treatment Plan Required Signatures Psychiatrist signature: Answers: Sekou Huang MD: RN on-shift signature: Answers: RN: Patient signature: Answers: Patient: Date Signed: 11/16/2017 08:46 AM Electronically Signed By:Poppy Aguilar
[2017-11-16] MEDS: VENLAFAXINE XR 150 MG CAP PO SCH (10:01)
[2017-11-16] MEDS: OMEGA-3 FATTY ACIDS 1,000 MG CAP PO SCH (10:01)
[2017-11-16] MEDS: PANTOPRAZOLE SODIUM 40 MG TAB PO SCH (10:01)
[2017-11-16] MEDS: CHOLECALCIFEROL VIT D3 2,000 UNITS TAB/CAP PO SCH (10:01)
[2017-11-16] MEDS: CYANO/VITAMIN B12 1000 MCG TAB PO SCH (10:01)
[2017-11-16] MEDS: LEVOTHYROXINE 88 MCG TAB PO SCH (10:08)
--- NOTE | 2017-11-16 16:26 | PDMN ---
Medical Necessity Medical necessity: Pt meets IP criteria per & DANYELL [id number]; est los >2 mn for eval/tx of major depressive disorder; admit for further monitoring, safety, crisis stabilization & med management; per CM note & order 11/16/17
--- NOTE | 2017-11-16 18:10 | BAPA ---
DATE OF SERVICE: 11/16/2017 REASON FOR ADMISSION: The patient is a 72-year-old female, known to me from previous outpatient evaluation in September 2016. She has a long history of treatment-resistant depression and was seen by me in the outpatient offices of [facility] for ECT evaluation in 2016. At that time, she was despondent and anxious, and had had several serious suicide attempts. She had been admitted to [facility] on several occasions and had been transferred to [facility]. While at [facility], she received 7 acute course right unilateral ECT treatments with excellent benefit per Dr. Chema Guan. Unfortunately, at that time, she refused continuation or maintenance treatments and was discharged in February 2017. Over the next several months, she continued to decline, began to isolate, spend all of her time in bed, feel helpless and hopeless, and stated that her anxiety was intense robbing her of all pleasure. She described herself as "afraid of everything." She focused her anxiety on fears that her was going to or that other family members were going to , and she felt paralyzed. I saw her in the evaluation in September, agreed she was a good candidate for continued ECT treatment, and scheduled her to begin. She then backed out of this, and I did not have further contact with her. She apparently had entered our outpatient clinic and saw Marcelina Bowers, nurse practitioner, there several weeks ago. Marcelina felt like she was acutely suicidal and believed that she was best served by treatment with ECT. Marcelina sent me an e-mail outlining her concerns stating that the patient had a rather precipitous decline for the month preceding admission, probably triggered by falling and breaking her wrist. I spoke with the patient' s , who told me that he also noticed a 3 to 4-week decline where he believed that she had been doing better. She had had a protracted hospitalization from May through July 2017 after a serious suicide attempt where she drank mixed solvents. She was treated at [facility] for this and ultimately received ECT with good effect. As previously with her experience at [facility], she declined maintenance treatment and stated that she felt like she could "never go back to being depressed." Her stated she continued to do quite well until this decline about a month ago. At this time, when I speak with the patient, she states that, "I will never be better, nothing will ever change." When I reflect to her that she has always done well with ECT and that, if she were to do continuation of maintenance treatments, she would likely remain well, she states, "It's just been too long, and I will never stay well, and I just want to ." She is fixated on being treated at a program called "[facility]," which is an organization in [place] that does assisted suicide. Her states that she has been talking about that with him as well, but that his opinion is that she does well with ECT, and he does not understand why she cannot just continue it and continue to do well. This was my inclination when I spoke with her before talking to her , and I asked her that. She simply repeated that she felt that she would never get better and never stay better even if she did. When asked about ECT, she states that she is not interested in doing that at this time, that she only wants an evaluation by a psychiatrist so that she can go to [place] and end her life. PAST PSYCHIATRIC HISTORY: The patient states that her first depression was around the age of 27 while in graduate school. She was treated with multiple medications without benefit and then at that time received a course of ECT with good response. She had a relapse in 2000 for which again she received ECT with good response. This relapse occurred after the of her sister. She has taken numerous previous psychotropic medications including Celexa, Effexor, Seroquel, Risperdal, Zyprexa, Klonopin, and Ativan. She has most recently been treated with the Effexor, Klonopin, mirtazapine, and trazodone. She has had five previous hospitalizations dating to her first episode. Her last hospitalization was at [facility] in May through July 2017. She received ECT during this stay, but initially refused. Her reports that it wasn't until the doctors petitioned the court for involuntary treatment that she agreed to proceed voluntarily. She currently sees Marcelina Bowers, nurse practitioner, [facility]. The patient has had at least 4, if not 5, serious suicide attempts, the last being in May of this year where she drank the mixed solvents. She told me a year ago, and her reiterated rigoight on the phone, that she tends to do these without warning and despite multiple promises does not disclose her intention. ALLERGIES: No known medical allergies. CURRENT MEDICATIONS: Include Effexor XR 150 mg daily, mirtazapine 30 mg h.s., trazodone 100 mg h.s., and clonazepam 1 mg, schedule unknown. PAST MEDICAL HISTORY: Significant for hypothyroidism due to thyroid ablation, but I do not have a current history that she is on thyroid medication. I will recheck this with her medical reconciliation. 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 These are her 2 primary reasons for stating she wants to . She has had several surgeries including umbilical hernia repair in 1976, bladder stone removal in 1984, wisdom teeth removal in 1966, and has had no problems with anesthesia. She has had 4 courses of ECT, with no problems with anesthesia. SOCIAL HISTORY: The patient lives with her . They are both retired. They previously lived most of their life in [place]. She had been living in an assisted living facility with her prior to coming to [place]. She is an active member of the [employer], and states that she has discussed her thoughts of and dying with her head operator. Her lifelong friend lives in [place], and she mourns the loss of this close relationship. She also has a good relationship with her daughter. 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 She was born and raised in [place], the youngest of 3 sisters, one of whom is , and the other one lives in [place]. There are no other acute stresses known at this time. SUBSTANCE ABUSE HISTORY: Noncontributory. FAMILY HISTORY: The patient has a sister with chronic depression and a sister who committed suicide at the age of 62. ADMISSION LABORATORY: CBC is normal. Serum chemistries are normal. TSH is high at 4.99, the upper limit of normal being 4.68. Urine drug screen is negative for all substances. Alcohol is less than detectable. MENTAL STATUS EXAMINATION: Examination reveals a thin, marginally groomed female, lying in a hospital bed. She declines to get out of bed or raise her head, but does make eye contact during the interview. Her activity is decreased, and she demonstrates a moderate level of psychomotor retardation. Her affect is dysphoric, blunted, stable, and appropriate. Her mood is described as "depressed." Her thought process is linear and goal directed. Her thought content reveals no evidence of psychosis. She is alert and oriented to person, place, time, and situation. Her sensorium is clear. She does not appear to have any delirium or dementia. Her intellect appears to be average to above average as evidenced by her educational and occupational history, fund of knowledge, and vocabulary. She continues to endorse a strong desire to , stating that she does not currently have a desire to kill herself , though she herself admits that she would not disclose that. Her insight and judgment appear to be marginal. IMPRESSION: Major depressive disorder, recurrent, severe, without psychotic features, with treatment-resistant features. 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 Hypothyroidism. Possible generalized anxiety disorder. 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 The patient is a 72-year-old female with a long history of severe treatment-resistant depression. She has, however, from the beginning of her illness responded well to electroconvulsive therapy. She recently had a protracted episode of depression in May through July of this year following a high lethality suicide attempt. She responded to electroconvulsive therapy at that time, though refused ongoing maintenance treatment. This kind of help- seeking, help-rejecting behavior when she is aware of multiple previous episodes in which she also failed because she did not do maintenance treatment calls into question some possible characterologic issues. I believe that in large part this focus on the [facility] program also speaks to the same form of personality disordered thought and behavior. That being said, I believe she has genuine biological illness that would likely benefit from further treatments of whatever type. I have discussed with her the possibility of electroconvulsive therapy, and she does not fully object, though she states she only wants to go to the [facility] program. She states that she would do what her recommends. My conversation with her is that he believes that she would be a good candidate to have electroconvulsive therapy again and then do maintenance after that. If we were to do electroconvulsive therapy, I would insist on her kaveh for ongoing maintenance also. PLAN: 1. Admit to the behavioral health services inpatient unit on an M1 hold. 2. Continue previous outpatient medications for now. 3. Convene a meeting with the patient and her to decide the course of action. Estimated length of stay is 7 to 14 days. /[id number]/MODL MTDD
[2017-11-16] MEDS: MIRTAZAPINE 30 MG TAB PO SCH (20:54)
[2017-11-16] MEDS: traZODone 100 MG TAB PO SCH (20:54)
[2017-11-16] MEDS: clonazePAM 1 MG TAB PO SCH (20:54)
[2017-11-16] MEDS: IBUPROFEN 200 MG TAB PO PRN (21:22)
[2017-11-17] MEDS: CYANO/VITAMIN B12 1000 MCG TAB PO SCH (08:30)
[2017-11-17] MEDS: PANTOPRAZOLE SODIUM 40 MG TAB PO SCH (08:30)
[2017-11-17] MEDS: VENLAFAXINE XR 150 MG CAP PO SCH (08:30)
[2017-11-17] MEDS: OMEGA-3 FATTY ACIDS 1,000 MG CAP PO SCH (08:30)
[2017-11-17] MEDS: CHOLECALCIFEROL VIT D3 2,000 UNITS TAB/CAP PO SCH (08:31)
[2017-11-17] MEDS: LEVOTHYROXINE 88 MCG TAB PO SCH (11:26)
[2017-11-17] MEDS: LORazepam 0.5 MG TAB PO PRN (12:26)
--- NOTE | 2017-11-17 13:23 | ASMTBHFAM ---
Notes Note: Notes: Family meeting with pt, CYNTHIA, and CC. Pt. initially did not want to attend the meeting, stating she was too scared. Pt. did attend meeting after speaking with . Pt. reports "I'm terrified" when sitting down for meeting. When asked if she thinks ECT will help, pt. stated "not this time". Pt. stated " I have a wish to go to [facility], I feel that my wish should be honored". discussed pt. getting ECT while on the unit. Pt. stated "Please let me lay down. I'll accept what you're telling me, just please let me lay down". CYNTHIA discussed "[facility]" stating "When she is well, this is not an issues. She doesn't want that". CYNTHIA stated pt's dystonia goes away after she receives ECT. CYNTHIA stated pt. has an appointment on TuesdayNovember 18 at 12:15pm to have her cast removed at [facility]. CYNTHIA stated if pt. can make this appointment, that is okay, she can have her cast taken off next week. Date Signed: 11/17/2017 01:23 PM Electronically Signed By:Shira Buenrostro
--- NOTE | 2017-11-17 15:25 | SOAPPROG ---
SOAP Progress Note Assessment/Plan: Assessment: Plan: 11/17/17 15:32 Mood: Remains depressed, anxious, somewhat histrionic. Agrees voluntarily without coercion to proceed with ECT. is completely supportive of this. I believe it is absolutely necessary at this point due to severity of depression and pressing nature of SI as well as hx of lack of responsiveness to meds. Will schedule for acute course treatment starting tomorrow. Subjective: Pt seen, discussed with staff. Isolating in room, refusing to leave bed. Eating and drinking poorly. Not bathing as of yet. Noted by staff to be anxious and guarded. Refused to come to Treatment Team meeting this morning. Later refused to come to family meeting with to discuss plan of care stating she was "too terrified." I told her she had no choice and needed to actively participate in her care. She then did attend the meeting, but left after about fifteen minutes again citing "too much anxiety." When asked about the nature of the anxiety, she only states, "I am terrified you won't let me go to the [facility]." I expressed my strong recommendation that she do ECT immediately and she states, "I can't decide. I will if you say I have to." I clearly informed her that I have no authority to compel her to do ECT. Her reinforces this and encourages her to do ECT as it has helped her in the past. She eventually states she will do it, but wants to continue to consider euthanasia. Objective: Vital Signs Temp Pulse Resp BP Pulse Ox 36.7 C 48 L 14 113/59 L 94 11/17/17 06:00 11/17/17 06:00 11/17/17 06:00 11/17/17 06:00 11/17/17 06:00 MSE: Moderately anxious, tremulous. Affect is o/w dysphoric, constricted, stable. Mood is "terrible, the worst." TP is linear, though perseverative. TC reveals negative ruminations, fears. No overt psychosis. SI continues with "strong desire to ." Cognition is intact. I/J are intact. - Time Spent With Patient Time Spent With Patient: 35" ICD10 Worksheet Patient Problems: Problems Problem Status Onset Severe major depression Acute Attempted suicide Acute Ingestion of corrosive chemical Acute
[2017-11-17] MEDS: traZODone 100 MG TAB PO SCH (20:27)
[2017-11-17] MEDS: MIRTAZAPINE 30 MG TAB PO SCH (20:27)
[2017-11-18] MEDS: LEVOTHYROXINE 88 MCG TAB PO SCH (07:26)
[2017-11-18] MEDS ORDERED: ONDANSETRON DISINTEGRATING 4 MG TAB PO PRN (08:00)
[2017-11-18] MEDS ORDERED: NS 1,000 ML IV PRN (08:00)
[2017-11-18] MEDS ORDERED: CITRIC ACID/SODIUM CITRATE 30 ML UDCUP PO PRN (08:00)
[2017-11-18] MEDS: CHOLECALCIFEROL VIT D3 2,000 UNITS TAB/CAP PO SCH (08:01)
[2017-11-18] MEDS: PANTOPRAZOLE SODIUM 40 MG TAB PO SCH (08:01)
[2017-11-18] MEDS: VENLAFAXINE XR 150 MG CAP PO SCH (08:01)
[2017-11-18] MEDS: CYANO/VITAMIN B12 1000 MCG TAB PO SCH (08:01)
[2017-11-18] MEDS: OMEGA-3 FATTY ACIDS 1,000 MG CAP PO SCH (08:01)
[2017-11-18] MEDS ORDERED: CITRIC ACID/SODIUM CITRATE 30 ML UDCUP ONE (09:25)
[2017-11-18] MEDS ORDERED: ONDANSETRON DISINTEGRATING 4 MG TAB ONE ×2 (09:25→11:12)
[2017-11-18] MEDS ORDERED: fentaNYL 100 MCG/2 ML INJ ONE (10:11)
[2017-11-18] MEDS ORDERED: GLYCOPYRROLATE 0.2 MG/1 ML VIAL ONE (10:11)
[2017-11-18] MEDS ORDERED: ETOMIDATE 20 MG/10 ML VIAL ONE (10:11)
[2017-11-18] MEDS ORDERED: MIDAZOLAM 2 MG/2 ML VIAL ONE (10:11)
--- NOTE | 2017-11-18 10:11 | PDECTPN ---
ECT Progress Note Patient Problems: Problems Problem Status Onset Code Severe major depression Acute F32.2 Attempted suicide Acute T14.91XA Ingestion of corrosive chemical Acute T54.91XA Date: 11/18/17 Treatment#: 1 ECT provider: Clem Huang Anesthesia: Mark Sher Stimulus dose (%): 50 Pulse width: 0.5 ECT EMG (sec): 27 ECT EEG (sec): 48 ECT treatment type: bilateral QIDS-SR Total Score: 30 QIDS-SR Question #12 Score: 3 MMSE Total Score (Max = 21): 18 Next ECT date: 11/21/17 Next ECT time: 13:30 Home medications: Medication Instructions Recorded Levothyroxine [Synthroid 88 mcg 88 mcg PO DAILY06 11/19/14 (*)] Cholecalciferol Vit D3 [Vitamin D3 5,000 units PO DAILY 11/15/17 2000 units tab (OTC)] Cyanocobalamin [Vitamin B12 (*)] 1,000 mcg PO DAILY 11/15/17 Ibuprofen [Motrin (*)] 400 mg PO Q8 PRN 11/15/17 Mirtazapine [Remeron] 30 mg PO HS 11/15/17 [place]-3 Fatty Acids [Fish Oil 1000 1,000 mg PO DAILY 11/15/17 mg (*)] Omeprazole 40 mg PO DAILY 11/15/17 Venlafaxine Xr [Effexor Xr] 150 mg PO DAILY 11/15/17 clonazePAM [klonoPIN (*)] 1 mg PO HS 11/15/17 traZODone [traZODONE 100MG (*)] 100 mg PO HS 11/15/17 Medication review: completed Current treatment plan: acute phase Treatment plan frequency: 3 times per week ECT narrative: Pt presents for initial acute course ECT treatment in this phase. She states she is "terrified". Sitting in bed moaning and shaking her head side to side rapidly. I asked her why she is doing that and she says, "Don't make fun of me. " She remains very dramatic with prominent help-seeking, help-rejecting behaviors. Her feeling of being terrified is linked to "being terrified I won' t get to go to [facility]. Agitated, anxious. Affect is o/w constricted. Frequent moaning. A&Ox4. Recognizes me. Refuses to open eyes after initial greeting. States, "I just want to get this done." Underwent bilateral ECT without complication. Will continue current meds and acute course ECT.
[2017-11-18] MEDS ORDERED: ROCURONIUM 50 MG/5 ML VIAL ONE (10:12)
[2017-11-18] MEDS ORDERED: SUCCINYLCHOLINE CHLORIDE 200 MG/10 ML VIAL ONE (10:12)
--- NOTE | 2017-11-18 10:22 | PDANEPAE ---
ECT Pre Anesthetic Evaluation Allergies/Adverse Reactions: No Known Allergies Allergy (Verified 11/15/17 09:31) Patient ID confirmed: Yes H&P reviewed: Yes Pre-anesthetic history reviewed: Yes Heart: regular rate and rhythym Lungs: no respiratory distress Mallampati Score: Class 1 ASA Status: II Home Medications: Medication Instructions Recorded Levothyroxine [Synthroid 88 mcg 88 mcg PO DAILY06 11/19/14 (*)] Cholecalciferol Vit D3 [Vitamin D3 5,000 units PO DAILY 11/15/17 2000 units tab (OTC)] Cyanocobalamin [Vitamin B12 (*)] 1,000 mcg PO DAILY 11/15/17 Ibuprofen [Motrin (*)] 400 mg PO Q8 PRN 11/15/17 Mirtazapine [Remeron] 30 mg PO HS 11/15/17 [place]-3 Fatty Acids [Fish Oil 1000 1,000 mg PO DAILY 11/15/17 mg (*)] Omeprazole 40 mg PO DAILY 11/15/17 Venlafaxine Xr [Effexor Xr] 150 mg PO DAILY 11/15/17 clonazePAM [klonoPIN (*)] 1 mg PO HS 11/15/17 traZODone [traZODONE 100MG (*)] 100 mg PO HS 11/15/17 Medication review: completed Patient interviewed: Yes Patient examined: Yes Anesthetic plan discussed with patient: Yes Anesthetic risks discussed with patient: Yes ECT Pre-Anesthetic History - Height & Weight Height: 162.56 cm Weight: 59.874 kg BMI: 22.67 - Anesthesia History Hx Anesthesia Complications (with details): None reported Family Hx Anesthesia Complications: None reported - Medications In the Past 6 Months the Patient Has Taken: Thyroid Medication - Tobacco/Alcohol/Drug Use Smoking Status: Never smoked Hx Drug/Substance Abuse: No Alcohol Use: No - Prior Surgeries/Hospitalizations Prior Surgeries: Recent broken lt wrist with surgical repair. Umbilical surgery in 1976, [place] teeth removal 1966, bladder stone removal in 1984 - Pulmonary History ECT Hx Asthma: No Hx Abnormal Chest X-Ray: No Hx Oxygen in Use at Home: No - Cardiovascular History Hx Hypertension: No Currently Uses Hypertension Medication: No Hx Arrhythmias: Yes Hx Palpitations: No Hx Chest Pain: No Hx Coronary Artery / Peripheral Vascular Disease: No Hx Blood Clot: No Cardiovascular History Comment: Pt reports a possible history of irregular heart beat but unclear and unsure. - Neurologic History Hx Cerebrovascular Accident: No Hx CT Scan Or MRI Of The Brain: Yes Hx Epilepsy, Convulsions, Seizures, Or Blackouts: No Hx Frequent Or Severe Headaches: No Hx Numbness: No Hx Neurologic Disorder: Yes Neurologic History Comment: Pt is unsure if she has had a CT or MRI. Cervical dystonia follows with neurology. - Dental History Current Dental Issues: None - Endocrine History Hx Diabetes: No Current Daily Insulin Injections: No Hx Thyroid Problems: Yes Endocrine History Comment: Hypothyroid with history of ablation. - Renal/Urologic History Hx Renal Disorders: No Hx Urinary Tract Problems: No - Liver History Hx Hepatic Disorders: No - Cancer History Hx Cancer: No - Hematology History Hx Unexplained Bleeding Of Any Type: No Hx Ease Of Bruising: No Hx Anemia: No - Gastrointestinal History Hx Gastroesophogeal Reflux Disease: Yes Hx Ulcers: No Hx Hiatal Hernia: No Hx Difficulty Swallowing: No - Musculoskeletal Hisory Hx Chronic Pain: Yes Chronic Pain Location: Neck Hx Arthritis: No Musculoskeletal History Comment: Pain related to cervical dystonia. - Opthalmic History Hx Glaucoma: No Visual Assistive Devices: Glasses - Other Health History Physical Disabililty: No Recent Cough, Cold, or Fever: No Significant Weight Loss In The Last 4 Months: No Possible the Patient Might be : No
--- NOTE | 2017-11-18 10:22 | PDHPUP ---
History & Physical Update H&P update statement: This history and physical update is based on an assessment of the patient which was completed after admission or registration (within 24 hours), but prior to the surgery/procedure. H&P update: H&P reviewed & patient examined, no change in patient's condition since H&P completed
[2017-11-18] MEDS ORDERED: KETOROLAC 30 MG/1 ML SDV ONE (10:35)
[2017-11-18] MEDS: ONDANSETRON DISINTEGRATING 4 MG TAB PO PRN (11:23)
--- NOTE | 2017-11-18 16:00 | POSTANESTH ---
Post Anesthetic Evaluation Cardiovascular Status: Normal, Stable Respiratory Status: Normal, Stable Level of Consciousness/Mental Status: Can Participate in Eval Pain Control: Adequate, Prn Tx Ordered Nausea/Vomiting Control: Adequate, Prn Tx Ordered Complications Possibly Related to Anesthesia: None Noted
[2017-11-18] MEDS: IBUPROFEN 200 MG TAB PO PRN (20:37)
[2017-11-18] MEDS: clonazePAM 1 MG TAB PO SCH (21:39)
[2017-11-18] MEDS: MIRTAZAPINE 30 MG TAB PO SCH (21:39)
[2017-11-18] MEDS: traZODone 100 MG TAB PO SCH (21:39)
[2017-11-19] MEDS: PANTOPRAZOLE SODIUM 40 MG TAB PO SCH (09:44)
[2017-11-19] MEDS: OMEGA-3 FATTY ACIDS 1,000 MG CAP PO SCH (09:44)
[2017-11-19] MEDS: CHOLECALCIFEROL VIT D3 2,000 UNITS TAB/CAP PO SCH (09:44)
[2017-11-19] MEDS: LEVOTHYROXINE 88 MCG TAB PO SCH (09:44)
[2017-11-19] MEDS: VENLAFAXINE XR 150 MG CAP PO SCH (09:44)
[2017-11-19] MEDS: CYANO/VITAMIN B12 1000 MCG TAB PO SCH (09:45)
[2017-11-19] MEDS: MAGNESIUM HYDROXIDE 30 ML UDCUP PO PRN (10:03)
--- NOTE | 2017-11-19 15:06 | ASMTCMCOM ---
CM Note CM Note Notes: Pt. reports "not doing so good". Pt. reports ECT went "okay". Pt. stated she has "a hard time getting up". Pt. stated she did not eat breakfast, but plans to eat lunch. Pt. stated "I'm scared" adding "this is hard". Pt. stated she still wants to go to [facility] to end her life after discharge. Pt. stated she has not started the process for a doctor assisted suicide yet. Pt. reports no issues with her current medications. Pt. stated "just feel so depressed". Pt. reports wanting to but not having a way she can do it on the unit. Pt. denied HI, AVH and paranoia. Pt. presents in bed, under the blankets, soft voice, no eye contact, depressed, alert, anxious, and isolating. Staff report pt. sleeping at least 8 hours and mostly being in bed. Date Signed: 11/19/2017 03:06 PM Electronically Signed By:Shira Buenrostro
--- NOTE | 2017-11-19 17:49 | SOAPPROG ---
SOAP Progress Note Assessment/Plan: Assessment: Per Dr. Huang's note: Plan: 11/17/17 15:32 Mood: Remains depressed, anxious, somewhat histrionic. Agrees voluntarily without coercion to proceed with ECT. is completely supportive of this. I believe it is absolutely necessary at this point due to severity of depression and pressing nature of SI as well as hx of lack of responsiveness to meds. Will schedule for acute course treatment starting tomorrow. Subjective: Pt seen, discussed with staff. Isolating in room, refusing to leave bed. Eating and drinking poorly. Not bathing as of yet. Noted by staff to be anxious and guarded. Refused to come to Treatment Team meeting this morning. Later refused to come to family meeting with to discuss plan of care stating she was "too terrified." I told her she had no choice and needed to actively participate in her care. She then did attend the meeting, but left after about fifteen minutes again citing "too much anxiety." When asked about the nature of the anxiety, she only states, "I am terrified you won't let me go to [facility]." I expressed my strong recommendation that she do ECT immediately and she states, "I can't decide. I will if you say I have to." I clearly informed her that I have no authority to compel her to do ECT. Her reinforces this and encourages her to do ECT as it has helped her in the past. She eventually states she will do it, but wants to continue to consider euthanasia. Plan: 11/19/17 17:47 1. Patient still talking about wanting to go to [place] for euthanasia, but no intent or plan to harm herself. 2. Willing to continue with ECT on Tuesday. 3. No change to meds Subjective: Patient expresses reservations about ECT, but after family meeting with and Dr. Huang willing to do "whatever the doctor" and her "want me to do." States she agrees to continue with ECT next week, but still thinking and talking about euthanasia. Objective: Vital Signs Temp Pulse Resp BP Pulse Ox 36.8 C 63 16 121/61 H 94 11/19/17 06:00 11/19/17 06:00 11/19/17 06:00 11/19/17 06:00 11/19/17 06:00 11/18/17 11/19/17 11/20/17 05:59 05:59 05:59 Intake Total 1000 Balance 1000 MSE: Affect: Depressed Mood: "OK" TP: Tangential TC: SI, but no plan or intent, able to contract for safety in hospital Insight/Judgment: Poor - Time Spent With Patient Time Spent With Patient: 15" - Pending Discharge Pending Discharge Within 24 Hours: No Pending Discharge Within 48 Hours: No ICD10 Worksheet Patient Problems: Problems Problem Status Onset Severe major depression Acute Attempted suicide Acute Ingestion of corrosive chemical Acute
[2017-11-19] MEDS: MIRTAZAPINE 30 MG TAB PO SCH (20:54)
[2017-11-19] MEDS: clonazePAM 1 MG TAB PO SCH (20:54)
[2017-11-19] MEDS: traZODone 100 MG TAB PO SCH (20:54)
[2017-11-20] MEDS: VENLAFAXINE XR 150 MG CAP PO SCH (09:27)
[2017-11-20] MEDS: LEVOTHYROXINE 88 MCG TAB PO SCH (09:27)
[2017-11-20] MEDS: OMEGA-3 FATTY ACIDS 1,000 MG CAP PO SCH (09:27)
[2017-11-20] MEDS: PANTOPRAZOLE SODIUM 40 MG TAB PO SCH (09:27)
[2017-11-20] MEDS: CHOLECALCIFEROL VIT D3 2,000 UNITS TAB/CAP PO SCH (09:27)
[2017-11-20] MEDS: CYANO/VITAMIN B12 1000 MCG TAB PO SCH (09:27)
[2017-11-20] MEDS: MAGNESIUM HYDROXIDE 30 ML UDCUP PO PRN (12:32)
[2017-11-20] MEDS: LORazepam 0.5 MG TAB PO PRN (15:32)
--- NOTE | 2017-11-20 16:09 | ASMTCMCOM ---
CM Note CM Note Notes: CC and MD briefly met with pt. Pt. stated "I don't like him. Dr. Huang". Pt. stated "I don't want to live". Pt. stated "I get well and then it all starts over again". Pt. stated "I can't bare it". Pt. reports wanting to travel to [facility] for a doctor assisted suicide. Pt. presents as in bed, covered in blankets, crying, covering her face, and lacking insight. Staff report pt. sleeping at least 9 hours and being medication compliant. CC will reschedule pt's [facility] [address] [place] [id number] Date Signed: 11/20/2017 04:08 PM Electronically Signed By:Shira Buenrostro
--- NOTE | 2017-11-20 18:56 | SOAPPROG ---
SOAP Progress Note Assessment/Plan: Assessment: Per Dr. Huang's note: Plan: 11/17/17 15:32 Mood: Remains depressed, anxious, somewhat histrionic. Agrees voluntarily without coercion to proceed with ECT. is completely supportive of this. I believe it is absolutely necessary at this point due to severity of depression and pressing nature of SI as well as hx of lack of responsiveness to meds. Will schedule for acute course treatment starting tomorrow. Subjective: Pt seen, discussed with staff. Isolating in room, refusing to leave bed. Eating and drinking poorly. Not bathing as of yet. Noted by staff to be anxious and guarded. Refused to come to Treatment Team meeting this morning. Later refused to come to family meeting with to discuss plan of care stating she was "too terrified." I told her she had no choice and needed to actively participate in her care. She then did attend the meeting, but left after about fifteen minutes again citing "too much anxiety." When asked about the nature of the anxiety, she only states, "I am terrified you won't let me go to the [facility]." I expressed my strong recommendation that she do ECT immediately and she states, "I can't decide. I will if you say I have to." I clearly informed her that I have no authority to compel her to do ECT. Her reinforces this and encourages her to do ECT as it has helped her in the past. She eventually states she will do it, but wants to continue to consider euthanasia. Plan: 11/19/17 17:47 1. Patient still talking about wanting to go to [facility] for euthanasia, but no intent or plan to harm herself. 2. Willing to continue with ECT on Tuesday. 3. No change to meds 11/20/17 18:53 1. Patient crying in her room. Very labile, reports "I don't want to live." 2. Agrees to ECT on Tuesday, but very apathetic. 3. No change to meds Subjective: Patient is lying on bed with blankets pulled up to chin, staring out the window. MD and CC spoke with patient. She reports, "I don't want to live." Claims she still wants to go to [facility]. She claims "everybody already knows this," and is a little irritable that MD is asking her how she's feeling today. Patient isolates in room most of the time, but does interact briefly with staff when filling out menu for tomorrow. She has "OK" appetite. Objective: Vital Signs Temp Pulse Resp BP Pulse Ox 36.6 C 52 L 14 103/55 L 94 11/20/17 06:00 11/20/17 06:00 11/20/17 06:00 11/20/17 06:00 11/20/17 06:00 11/19/17 11/20/17 11/21/17 05:59 05:59 05:59 Intake Total 1000 Balance 1000 MSE: Affect: Depressed Mood: "I don't want to live" TP: Linear TC: SI with plan to receive euthanasia at facility in [place] Insight/judgment: Poor - Time Spent With Patient Time Spent With Patient: 15" - Pending Discharge Pending Discharge Within 24 Hours: No Pending Discharge Within 48 Hours: No ICD10 Worksheet Patient Problems: Problems Problem Status Onset Severe major depression Acute Attempted suicide Acute Ingestion of corrosive chemical Acute
[2017-11-20] MEDS: traZODone 100 MG TAB PO SCH (20:50)
[2017-11-20] MEDS: MIRTAZAPINE 30 MG TAB PO SCH (20:51)
[2017-11-20] MEDS: clonazePAM 1 MG TAB PO SCH (20:53)
[2017-11-21] MEDS ORDERED: ONDANSETRON DISINTEGRATING 4 MG TAB PO PRN (04:00)
[2017-11-21] MEDS ORDERED: NS 1,000 ML IV PRN (04:00)
[2017-11-21] MEDS ORDERED: CITRIC ACID/SODIUM CITRATE 30 ML UDCUP PO PRN (04:00)
[2017-11-21] MEDS: CHOLECALCIFEROL VIT D3 2,000 UNITS TAB/CAP PO SCH (08:29)
[2017-11-21] MEDS: LEVOTHYROXINE 88 MCG TAB PO SCH (08:29)
[2017-11-21] MEDS: CYANO/VITAMIN B12 1000 MCG TAB PO SCH (08:30)
[2017-11-21] MEDS: OMEGA-3 FATTY ACIDS 1,000 MG CAP PO SCH (08:30)
[2017-11-21] MEDS: PANTOPRAZOLE SODIUM 40 MG TAB PO SCH (08:30)
[2017-11-21] MEDS: VENLAFAXINE XR 150 MG CAP PO SCH (08:31)
[2017-11-21] MEDS ORDERED: CITRIC ACID/SODIUM CITRATE 30 ML UDCUP ONE (14:03)
[2017-11-21] MEDS ORDERED: ONDANSETRON DISINTEGRATING 4 MG TAB ONE (14:03)
[2017-11-21] MEDS ORDERED: MIDAZOLAM 2 MG/2 ML VIAL ONE (14:27)
[2017-11-21] MEDS ORDERED: ETOMIDATE 20 MG/10 ML VIAL ONE (14:27)
[2017-11-21] MEDS ORDERED: fentaNYL 100 MCG/2 ML INJ ONE (14:27)
--- NOTE | 2017-11-21 14:36 | PDECTPN ---
ECT Progress Note Patient Problems: Problems Problem Status Onset Code Severe major depression Acute F32.2 Attempted suicide Acute T14.91XA Ingestion of corrosive chemical Acute T54.91XA Date: 11/21/17 ECT provider: Clem Huang Anesthesia: Chichi Monte Stimulus dose (%): 55 Pulse width: 0.5 ECT EMG (sec): 43 ECT EEG (sec): 43 ECT treatment type: bilateral QIDS-SR Total Score: 30 QIDS-SR Question #12 Score: 3 MMSE Total Score (Max = 21): 18 Next ECT date: 11/23/17 Next ECT time: 06:30 Home medications: Medication Instructions Recorded Levothyroxine [Synthroid 88 mcg 88 mcg PO DAILY06 11/19/14 (*)] Cholecalciferol Vit D3 [Vitamin D3 5,000 units PO DAILY 11/15/17 2000 units tab (OTC)] Cyanocobalamin [Vitamin B12 (*)] 1,000 mcg PO DAILY 11/15/17 Ibuprofen [Motrin (*)] 400 mg PO Q8 PRN 11/15/17 Mirtazapine [Remeron] 30 mg PO HS 11/15/17 [place]-3 Fatty Acids [Fish Oil 1000 1,000 mg PO DAILY 11/15/17 mg (*)] Omeprazole 40 mg PO DAILY 11/15/17 Venlafaxine Xr [Effexor Xr] 150 mg PO DAILY 11/15/17 clonazePAM [klonoPIN (*)] 1 mg PO HS 11/15/17 traZODone [traZODONE 100MG (*)] 100 mg PO HS 11/15/17 Medication review: completed Current treatment plan: acute phase Treatment plan frequency: 3 times per week ECT narrative: Pt presents for continued acute course ECT treatment in this phase. She states "everything is terrible. I'm terrible. You're terrible - awful!" Very active , dramatic, shaking head vigorously, moaning, yelling. Asked if she wants to proceed and she does not object. Given the opportunity to leave without treatment and she declines. Allows all intervention except QIDS and MMSE. Agitated, anxious. Affect is o/w constricted. Frequent moaning, yelling. A& Ox4. Recognizes me. Refuses to open eyes. Underwent bilateral ECT without complication. Will continue current meds and acute course ECT.
--- NOTE | 2017-11-21 14:38 | PDANEPAE ---
ECT Pre Anesthetic Evaluation Allergies/Adverse Reactions: No Known Allergies Allergy (Verified 11/15/17 09:31) Patient ID confirmed: Yes H&P reviewed: Yes Pre-anesthetic history reviewed: Yes Heart: regular rate and rhythym Lungs: no respiratory distress Mallampati Score: Class 2 ASA Status: II, III Home Medications: Medication Instructions Recorded Levothyroxine [Synthroid 88 mcg 88 mcg PO DAILY06 11/19/14 (*)] Cholecalciferol Vit D3 [Vitamin D3 5,000 units PO DAILY 11/15/17 2000 units tab (OTC)] Cyanocobalamin [Vitamin B12 (*)] 1,000 mcg PO DAILY 11/15/17 Ibuprofen [Motrin (*)] 400 mg PO Q8 PRN 11/15/17 Mirtazapine [Remeron] 30 mg PO HS 11/15/17 [place]-3 Fatty Acids [Fish Oil 1000 1,000 mg PO DAILY 11/15/17 mg (*)] Omeprazole 40 mg PO DAILY 11/15/17 Venlafaxine Xr [Effexor Xr] 150 mg PO DAILY 11/15/17 clonazePAM [klonoPIN (*)] 1 mg PO HS 11/15/17 traZODone [traZODONE 100MG (*)] 100 mg PO HS 11/15/17 Medication review: completed Patient interviewed: Yes Patient examined: Yes Anesthetic plan discussed with patient: Yes Anesthetic risks discussed with patient: Yes ECT Pre-Anesthetic History - Height & Weight Height: 162.56 cm Weight: 61.433 kg BMI: 23.26 - Anesthesia History Hx Anesthesia Complications (with details): None reported Family Hx Anesthesia Complications: None reported - Medications In the Past 6 Months the Patient Has Taken: Thyroid Medication - Tobacco/Alcohol/Drug Use Smoking Status: Never smoked Hx Drug/Substance Abuse: No Alcohol Use: No - Prior Surgeries/Hospitalizations Prior Surgeries: Recent broken lt wrist with surgical repair. Umbilical surgery in 1976, [place] teeth removal 1966, bladder stone removal in 1984 - Pulmonary History ECT Hx Asthma: No Hx Abnormal Chest X-Ray: No Hx Oxygen in Use at Home: No - Cardiovascular History Hx Hypertension: No Currently Uses Hypertension Medication: No Hx Arrhythmias: Yes Hx Palpitations: No Hx Chest Pain: No Hx Coronary Artery / Peripheral Vascular Disease: No Hx Blood Clot: No Cardiovascular History Comment: Pt reports a possible history of irregular heart beat but unclear and unsure. - Neurologic History Hx Cerebrovascular Accident: No Hx CT Scan Or MRI Of The Brain: Yes Hx Epilepsy, Convulsions, Seizures, Or Blackouts: No Hx Frequent Or Severe Headaches: No Hx Numbness: No Hx Neurologic Disorder: Yes Neurologic History Comment: Pt is unsure if she has had a CT or MRI. Cervical dystonia follows with neurology. - Dental History Current Dental Issues: None - Endocrine History Hx Diabetes: No Current Daily Insulin Injections: No Hx Thyroid Problems: Yes Endocrine History Comment: Hypothyroid with history of ablation. - Renal/Urologic History Hx Renal Disorders: No Hx Urinary Tract Problems: No - Liver History Hx Hepatic Disorders: No - Cancer History Hx Cancer: No - Hematology History Hx Unexplained Bleeding Of Any Type: No Hx Ease Of Bruising: No Hx Anemia: No - Gastrointestinal History Hx Gastroesophogeal Reflux Disease: Yes Hx Ulcers: No Hx Hiatal Hernia: No Hx Difficulty Swallowing: No - Musculoskeletal Hisory Hx Chronic Pain: Yes Chronic Pain Location: Neck Hx Arthritis: No Musculoskeletal History Comment: Pain related to cervical dystonia. - Opthalmic History Hx Glaucoma: No Visual Assistive Devices: Glasses - Other Health History Physical Disabililty: No Recent Cough, Cold, or Fever: No Significant Weight Loss In The Last 4 Months: No Possible the Patient Might be : No
[2017-11-21] MEDS ORDERED: NALOXONE HCL 0.4 MG/ML INJ IVP PRN (15:20)
[2017-11-21] MEDS ORDERED: LABETALOL HCL 5 MG/ML 20 ML MDV IVP ONE (15:22)
[2017-11-21] MEDS: IBUPROFEN 200 MG TAB PO PRN (17:52)
[2017-11-21] MEDS: ACETAMINOPHEN 325 MG TAB PO PRN (19:38)
[2017-11-21] MEDS: MIRTAZAPINE 30 MG TAB PO SCH (21:02)
[2017-11-21] MEDS: traZODone 100 MG TAB PO SCH (21:02)
[2017-11-21] MEDS: clonazePAM 1 MG TAB PO SCH (21:03)
[2017-11-22] MEDS: IBUPROFEN 200 MG TAB PO PRN (08:38)
[2017-11-22] MEDS: LEVOTHYROXINE 88 MCG TAB PO SCH (09:25)
[2017-11-22] MEDS: CHOLECALCIFEROL VIT D3 2,000 UNITS TAB/CAP PO SCH (09:25)
[2017-11-22] MEDS: OMEGA-3 FATTY ACIDS 1,000 MG CAP PO SCH (09:25)
[2017-11-22] MEDS: CYANO/VITAMIN B12 1000 MCG TAB PO SCH (09:25)
[2017-11-22] MEDS: VENLAFAXINE XR 150 MG CAP PO SCH (09:25)
[2017-11-22] MEDS: PANTOPRAZOLE SODIUM 40 MG TAB PO SCH (09:25)
[2017-11-22] MEDS: ONDANSETRON DISINTEGRATING 4 MG TAB PO PRN (09:59)
--- NOTE | 2017-11-22 11:11 | ASMTCMCOM ---
CM Note CM Note Notes: CC contacted ([id number]) with ECT to confirm client's ECT TX for tomorrow for later in the day due to her standing out-patient appt regarding her arm cast, etc.* Nieves noted that client is rescheduled for ECT on Tuesday at 1:15pm.* Date Signed: 11/22/2017 11:10 AM Electronically Signed By:Andrew Montejo
[2017-11-22] MEDS: MAGNESIUM HYDROXIDE 30 ML UDCUP PO PRN (13:53)
[2017-11-22] MEDS: traZODone 100 MG TAB PO SCH (20:50)
[2017-11-22] MEDS: MIRTAZAPINE 30 MG TAB PO SCH (20:50)
[2017-11-22] MEDS: clonazePAM 1 MG TAB PO SCH (20:52)
--- NOTE | 2017-11-22 20:57 | SOAPPROG ---
SOAP Progress Note Assessment/Plan: Assessment: Plan: 11/17/17 15:32 Mood: Remains depressed, anxious, somewhat histrionic. Agrees voluntarily without coercion to proceed with ECT. is completely supportive of this. I believe it is absolutely necessary at this point due to severity of depression and pressing nature of SI as well as hx of lack of responsiveness to meds. Will schedule for acute course treatment starting tomorrow. 11/22/17 20:57 Mood: MUCH improved. Already turning the corner and resumed capacity and reasoning. Will CCM. Subjective: Pt seen, discussed with staff. Reports feeling "sad" but not "terrified." Does not remember discussing illness with me before. Does remember yelling in ECT yesterday. States, "I am just so frustrated. I can't sit still. My neck is always shaking. I was yelling on purpose because what else can I do." Compliant with treatments, though avoids groups. States she wants to continue ECT. Objective: Vital Signs Temp Pulse Resp BP Pulse Ox 36.9 C 51 L 14 107/54 L 92 11/22/17 06:00 11/22/17 06:00 11/22/17 06:00 11/22/17 06:00 11/22/17 06:00 11/21/17 11/22/17 11/23/17 05:59 05:59 05:59 Intake Total 700 Balance 700 MSE: Well-groomed, pleasant and cooperative. Engaging for 25 minute interview with on overt histrionics, moaning, yelling or derisive language. She thanks me for "trying to help me." States, "I just can't do this any more". Mentions "euthanaisa" but states she wants to continue ECt. - Time Spent With Patient Time Spent With Patient: 25" ICD10 Worksheet Patient Problems: Problems Problem Status Onset Severe major depression Acute Attempted suicide Acute Ingestion of corrosive chemical Acute
[2017-11-23] MEDS: LEVOTHYROXINE 88 MCG TAB PO SCH (09:04)
[2017-11-23] MEDS: PANTOPRAZOLE SODIUM 40 MG TAB PO SCH (09:04)
[2017-11-23] MEDS: VENLAFAXINE XR 150 MG CAP PO SCH (09:05)
[2017-11-23] MEDS: ONDANSETRON DISINTEGRATING 4 MG TAB PO PRN (10:28)
--- NOTE | 2017-11-23 10:40 | ASMTCMCOM ---
CM Note CM Note Notes: Pt. was having tea in dining room when CC approached. Pt. stated she was hungry but could only eat Jello before ECT today. Pt. reports wanting her cast off and being excited it is coming off today. Pt. stated she has ECT this afternoon and it is going "fine". Pt. stated she slept "pretty good. Took a while to fall asleep". Pt. reports she is getting enough to eat on her trays. Pt. reports no issues with her current medications. Pt. stated she is attending groups. Pt. stated "feel a difference today" when discussing ECT. Pt. denied SI, HI, AVH and paranoia. Pt. did not bring up or mention [place] with CC today. Pt. presents as alert, polite, brighter affect, not crying, good eye contact, and with a mostly pleasant demeanor. Pt. is set to have her cast removed today. Staff report pt. sleeping 9.5 hours, being medication compliant and scheduled for ECT today at 1315. Date Signed: 11/23/2017 10:39 AM Electronically Signed By:Shira Buenrostro
[2017-11-23] MEDS ORDERED: THEOPHYLLINE ORAL SOLUTION 80 MG/15 ML UDCUP PO ONE (11:00)
[2017-11-23] MEDS ORDERED: CITRIC ACID/SODIUM CITRATE 30 ML UDCUP PO PRN (11:00)
[2017-11-23] MEDS ORDERED: ONDANSETRON DISINTEGRATING 4 MG TAB PO PRN (11:00)
[2017-11-23] MEDS ORDERED: NS 1,000 ML IV PRN (11:00)
[2017-11-23] MEDS ORDERED: CITRIC ACID/SODIUM CITRATE 30 ML UDCUP ONE (12:58)
[2017-11-23] MEDS ORDERED: fentaNYL 100 MCG/2 ML INJ ONE (13:24)
[2017-11-23] MEDS ORDERED: MIDAZOLAM 2 MG/2 ML VIAL ONE (13:24)
[2017-11-23] MEDS ORDERED: METHOHEXITAL SODIUM 100 MG/10 ML SYR IVP ONE (13:24)
--- NOTE | 2017-11-23 13:28 | PDECTPN ---
ECT Progress Note Patient Problems: Problems Problem Status Onset Code Severe major depression Acute F32.2 Attempted suicide Acute T14.91XA Ingestion of corrosive chemical Acute T54.91XA Date: 11/23/17 ECT provider: Clem Huang Anesthesia: Chichi Monte Stimulus dose (%): 60 Pulse width: 0.5 ECT EMG (sec): 34 ECT EEG (sec): 83 ECT treatment type: bilateral QIDS-SR Total Score: 11 QIDS-SR Question #12 Score: 1 MMSE Total Score (Max = 21): 21 Next ECT date: 11/25/17 Next ECT time: 07:00 Home medications: Medication Instructions Recorded Levothyroxine [Synthroid 88 mcg 88 mcg PO DAILY06 11/19/14 (*)] Cholecalciferol Vit D3 [Vitamin D3 5,000 units PO DAILY 11/15/17 2000 units tab (OTC)] Cyanocobalamin [Vitamin B12 (*)] 1,000 mcg PO DAILY 11/15/17 Ibuprofen [Motrin (*)] 400 mg PO Q8 PRN 11/15/17 Mirtazapine [Remeron] 30 mg PO HS 11/15/17 [place]-3 Fatty Acids [Fish Oil 1000 1,000 mg PO DAILY 11/15/17 mg (*)] Omeprazole 40 mg PO DAILY 11/15/17 Venlafaxine Xr [Effexor Xr] 150 mg PO DAILY 11/15/17 clonazePAM [klonoPIN (*)] 1 mg PO HS 11/15/17 traZODone [traZODONE 100MG (*)] 100 mg PO HS 11/15/17 Medication review: completed Current treatment plan: acute phase Treatment plan frequency: 3 times per week ECT narrative: Pt presents for continued acute course ECT treatment in this phase. She has been considerably better over the past 24 hours with decreased anxiety, improved overall functioning. Got cast off of her arm this morning. Reports still feeling anxious and "desperate." Moderately agitated, anxious. More interactive. No moaning or yelling. A& Ox4. Underwent bilateral ECT without complication. Will continue current meds and acute course ECT.
--- NOTE | 2017-11-23 13:28 | PDANEPAE ---
ECT Pre Anesthetic Evaluation Allergies/Adverse Reactions: No Known Allergies Allergy (Verified 11/15/17 09:31) Patient ID confirmed: Yes H&P reviewed: Yes Pre-anesthetic history reviewed: Yes Heart: regular rate and rhythym, no murmur, rub, or gallop Lungs: no rales or rhonchi Mallampati Score: Class 1 ASA Status: III Home Medications: Medication Instructions Recorded Levothyroxine [Synthroid 88 mcg 88 mcg PO DAILY06 11/19/14 (*)] Cholecalciferol Vit D3 [Vitamin D3 5,000 units PO DAILY 11/15/17 2000 units tab (OTC)] Cyanocobalamin [Vitamin B12 (*)] 1,000 mcg PO DAILY 11/15/17 Ibuprofen [Motrin (*)] 400 mg PO Q8 PRN 11/15/17 Mirtazapine [Remeron] 30 mg PO HS 11/15/17 [place]-3 Fatty Acids [Fish Oil 1000 1,000 mg PO DAILY 11/15/17 mg (*)] Omeprazole 40 mg PO DAILY 11/15/17 Venlafaxine Xr [Effexor Xr] 150 mg PO DAILY 11/15/17 clonazePAM [klonoPIN (*)] 1 mg PO HS 11/15/17 traZODone [traZODONE 100MG (*)] 100 mg PO HS 11/15/17 Medication review: completed Patient interviewed: Yes Patient examined: Yes Anesthetic plan discussed with patient: Yes Anesthetic risks discussed with patient: Yes ECT Pre-Anesthetic History - Height & Weight Height: 162.56 cm Weight: 61.433 kg BMI: 23.26 - Anesthesia History Hx Anesthesia Complications (with details): None reported Family Hx Anesthesia Complications: None reported - Medications In the Past 6 Months the Patient Has Taken: Thyroid Medication - Tobacco/Alcohol/Drug Use Smoking Status: Never smoked Hx Drug/Substance Abuse: No Alcohol Use: No - Prior Surgeries/Hospitalizations Prior Surgeries: Recent broken lt wrist with surgical repair. Umbilical surgery in 1976, [place] teeth removal 1966, bladder stone removal in 1984 - Pulmonary History ECT Hx Asthma: No Hx Abnormal Chest X-Ray: No Hx Oxygen in Use at Home: No - Cardiovascular History Hx Hypertension: No Currently Uses Hypertension Medication: No Hx Arrhythmias: Yes Hx Palpitations: No Hx Chest Pain: No Hx Coronary Artery / Peripheral Vascular Disease: No Hx Blood Clot: No Cardiovascular History Comment: Pt reports a possible history of irregular heart beat but unclear and unsure. - Neurologic History Hx Cerebrovascular Accident: No Hx CT Scan Or MRI Of The Brain: Yes Hx Epilepsy, Convulsions, Seizures, Or Blackouts: No Hx Frequent Or Severe Headaches: No Hx Numbness: No Hx Neurologic Disorder: Yes Neurologic History Comment: Pt is unsure if she has had a CT or MRI. Cervical dystonia follows with neurology. - Dental History Current Dental Issues: None - Endocrine History Hx Diabetes: No Current Daily Insulin Injections: No Hx Thyroid Problems: Yes Endocrine History Comment: Hypothyroid with history of ablation. - Renal/Urologic History Hx Renal Disorders: No Hx Urinary Tract Problems: No - Liver History Hx Hepatic Disorders: No - Cancer History Hx Cancer: No - Hematology History Hx Unexplained Bleeding Of Any Type: No Hx Ease Of Bruising: No Hx Anemia: No - Gastrointestinal History Hx Gastroesophogeal Reflux Disease: Yes Hx Ulcers: No Hx Hiatal Hernia: No Hx Difficulty Swallowing: No - Musculoskeletal Hisory Hx Chronic Pain: Yes Chronic Pain Location: Neck Hx Arthritis: No Musculoskeletal History Comment: Pain related to cervical dystonia. - Opthalmic History Hx Glaucoma: No Visual Assistive Devices: Glasses - Other Health History Physical Disabililty: No Recent Cough, Cold, or Fever: No Significant Weight Loss In The Last 4 Months: No Possible the Patient Might be : No
--- NOTE | 2017-11-23 14:56 | ASMTBHFAM ---
Notes Note: Notes: TREVOR spoke with CYNTHIA after he visited pt. while she had her cast removed. CYNTHIA stated pt. looks better, but still has a little way to go. CYNTHIA stated pt. did not mention suicide during their visit. Date Signed: 11/23/2017 02:55 PM Electronically Signed By:Shira Buenrostro
[2017-11-23] MEDS: LORazepam 0.5 MG TAB PO PRN (15:20)
[2017-11-23] MEDS: IBUPROFEN 200 MG TAB PO PRN (16:50)
[2017-11-23] MEDS: CHOLECALCIFEROL VIT D3 2,000 UNITS TAB/CAP PO SCH (17:38)
[2017-11-23] MEDS: CYANO/VITAMIN B12 1000 MCG TAB PO SCH (17:38)
[2017-11-23] MEDS: OMEGA-3 FATTY ACIDS 1,000 MG CAP PO SCH (17:39)
[2017-11-23] MEDS: clonazePAM 1 MG TAB PO SCH (20:55)
[2017-11-23] MEDS: ACETAMINOPHEN 325 MG TAB PO PRN (20:55)
[2017-11-23] MEDS: MIRTAZAPINE 30 MG TAB PO SCH (20:55)
[2017-11-23] MEDS: traZODone 100 MG TAB PO SCH (20:55)
[2017-11-24] MEDS: CYANO/VITAMIN B12 1000 MCG TAB PO SCH (08:38)
[2017-11-24] MEDS: CHOLECALCIFEROL VIT D3 2,000 UNITS TAB/CAP PO SCH (08:38)
[2017-11-24] MEDS: LEVOTHYROXINE 88 MCG TAB PO SCH (08:38)
[2017-11-24] MEDS: VENLAFAXINE XR 150 MG CAP PO SCH (08:38)
[2017-11-24] MEDS: PANTOPRAZOLE SODIUM 40 MG TAB PO SCH (08:38)
[2017-11-24] MEDS: OMEGA-3 FATTY ACIDS 1,000 MG CAP PO SCH (08:38)
--- NOTE | 2017-11-24 11:43 | ASMTCMCOM ---
CM Note CM Note Notes: The patient participated in clinical treatment team rounds. The patient reported that she was feeling "better; emotionally." Shes discussed her fear of anesthetic with the team; remarking on the injection process and her chest pounding. The patient receives anesthetic prior to ECT treatments. The patient reportedly appears brighter and happier today by [facility] staff. Her suicide precautions were discontinued and she was granted accompanied grounds. The patient and provider discussed the importance of maintenance treatments for sustaining recovery and preventing relapse. Date Signed: 11/24/2017 11:42 AM Electronically Signed By:Poppy Aguilar
[2017-11-24] MEDS: clonazePAM 1 MG TAB PO SCH (20:19)
--- NOTE | 2017-11-24 21:01 | SOAPPROG ---
SOAP Progress Note Assessment/Plan: Assessment: Plan: 11/17/17 15:32 Mood: Remains depressed, anxious, somewhat histrionic. Agrees voluntarily without coercion to proceed with ECT. is completely supportive of this. I believe it is absolutely necessary at this point due to severity of depression and pressing nature of SI as well as hx of lack of responsiveness to meds. Will schedule for acute course treatment starting tomorrow. 11/22/17 20:57 Mood: MUCH improved. Already turning the corner and resumed capacity and reasoning. Will CCM. 11/24/17 21:02 MooD: Continued improvement with ECT. CCM. Subjective: Pt seen, discussed with staff. Reports feeling "much better." Participated in Treatment Team meeting. Appropriate and interactive. Much less irritable. Did not mention euthanasia. Objective: Vital Signs Temp Pulse Resp BP Pulse Ox 36.7 C 53 L 16 120/59 L 95 11/24/17 06:00 11/24/17 06:00 11/24/17 06:00 11/24/17 06:00 11/24/17 06:00 11/23/17 11/24/17 11/25/17 05:59 05:59 05:59 Intake Total 900 Balance 900 MSE: Calm, coop. Affect is brighter, stable, approp. Mood is "better" TP is linear. TC reveals no psychosis. Cognition is good. - Time Spent With Patient Time Spent With Patient: 25" ICD10 Worksheet Patient Problems: Problems Problem Status Onset Severe major depression Acute Attempted suicide Acute Ingestion of corrosive chemical Acute
[2017-11-24] MEDS: MIRTAZAPINE 30 MG TAB PO SCH (21:20)
[2017-11-24] MEDS: traZODone 100 MG TAB PO SCH (21:20)
[2017-11-25] MEDS ORDERED: THEOPHYLLINE ORAL SOLUTION 80 MG/15 ML UDCUP PO ONE (04:00)
[2017-11-25] MEDS ORDERED: ONDANSETRON DISINTEGRATING 4 MG TAB PO PRN (04:00)
[2017-11-25] MEDS ORDERED: CITRIC ACID/SODIUM CITRATE 30 ML UDCUP PO PRN (04:00)
[2017-11-25] MEDS ORDERED: NS 1,000 ML IV PRN (04:00)
[2017-11-25] MEDS ORDERED: ONDANSETRON DISINTEGRATING 4 MG TAB ONE (06:57)
[2017-11-25] MEDS ORDERED: CITRIC ACID/SODIUM CITRATE 30 ML UDCUP ONE (06:57)
[2017-11-25] MEDS: ONDANSETRON DISINTEGRATING 4 MG TAB PO PRN (06:58)
[2017-11-25] MEDS ORDERED: fentaNYL 100 MCG/2 ML INJ ONE (07:09)
[2017-11-25] MEDS ORDERED: MIDAZOLAM 2 MG/2 ML VIAL ONE (07:09)
[2017-11-25] MEDS ORDERED: METHOHEXITAL SODIUM 100 MG/10 ML SYR IVP ONE (07:09)
--- NOTE | 2017-11-25 07:32 | PDECTPN ---
ECT Progress Note Patient Problems: Problems Problem Status Onset Code Severe major depression Acute F32.2 Attempted suicide Acute T14.91XA Ingestion of corrosive chemical Acute T5.91XA Date: 11/25/17 ECT provider: Clem Huang Anesthesia: [place] Monte Stimulus dose (%): 65 Pulse width: 0.5 ECT EMG (sec): 31 ECT EEG (sec): 53 ECT treatment type: bilateral QIDS-SR Total Score: 3 QIDS-SR Question #12 Score: 0 MMSE Total Score (Max = 21): 19 Home medications: Medication Instructions Recorded Levothyroxine [Synthroid 88 mcg 88 mcg PO DAILY06 11/19/14 (*)] Cholecalciferol Vit D3 [Vitamin D3 5,000 units PO DAILY 11/15/17 2000 units tab (OTC)] Cyanocobalamin [Vitamin B12 (*)] 1,000 mcg PO DAILY 11/15/17 Ibuprofen [Motrin (*)] 400 mg PO Q8 PRN 11/15/17 Mirtazapine [Remeron] 30 mg PO HS 11/15/17 [place]-3 Fatty Acids [Fish Oil 1000 1,000 mg PO DAILY 11/15/17 mg (*)] Omeprazole 40 mg PO DAILY 11/15/17 Venlafaxine Xr [Effexor Xr] 150 mg PO DAILY 11/15/17 clonazePAM [klonoPIN (*)] 1 mg PO HS 11/15/17 traZODone [traZODONE 100MG (*)] 100 mg PO HS 11/15/17 Medication review: completed Current treatment plan: acute phase Treatment plan frequency: 3 times per week ECT narrative: Pt presents for continued acute course ECT treatment. She has improved considerably since starting ECT. Moderately agitated, anxious. Appropriately interactive. Shaking and states she is "very anxious." Underwent bilateral ECT without complication. Will continue current meds and acute course ECT.
--- NOTE | 2017-11-25 07:47 | POSTANESTH ---
Post Anesthetic Evaluation Cardiovascular Status: Normal, Stable, Similar to Pre-Op Cond Respiratory Status: Normal, Stable, Similar to Pre-op Cond. Level of Consciousness/Mental Status: Mildly Sleepy, Arousable Pain Control: Adequate, Prn Tx Ordered Nausea/Vomiting Control: Adequate, Prn Tx Ordered Complications Possibly Related to Anesthesia: None Noted
[2017-11-25] MEDS: CHOLECALCIFEROL VIT D3 2,000 UNITS TAB/CAP PO SCH (09:01)
[2017-11-25] MEDS: VENLAFAXINE XR 150 MG CAP PO SCH (09:02)
[2017-11-25] MEDS: PANTOPRAZOLE SODIUM 40 MG TAB PO SCH (09:02)
[2017-11-25] MEDS: OMEGA-3 FATTY ACIDS 1,000 MG CAP PO SCH (09:02)
[2017-11-25] MEDS: CYANO/VITAMIN B12 1000 MCG TAB PO SCH (09:03)
[2017-11-25] MEDS: LEVOTHYROXINE 88 MCG TAB PO SCH (09:03)
[2017-11-25] MEDS: clonazePAM 1 MG TAB PO SCH (21:17)
[2017-11-25] MEDS: traZODone 100 MG TAB PO SCH (21:17)
[2017-11-25] MEDS: MIRTAZAPINE 30 MG TAB PO SCH (21:17)
[2017-11-26] MEDS: PANTOPRAZOLE SODIUM 40 MG TAB PO SCH (08:24)
[2017-11-26] MEDS: VENLAFAXINE XR 150 MG CAP PO SCH (08:24)
[2017-11-26] MEDS: CYANO/VITAMIN B12 1000 MCG TAB PO SCH (08:24)
[2017-11-26] MEDS: OMEGA-3 FATTY ACIDS 1,000 MG CAP PO SCH (08:24)
[2017-11-26] MEDS: CHOLECALCIFEROL VIT D3 2,000 UNITS TAB/CAP PO SCH (08:24)
[2017-11-26] MEDS: LEVOTHYROXINE 88 MCG TAB PO SCH (10:45)
[2017-11-26] MEDS: MAGNESIUM HYDROXIDE 30 ML UDCUP PO PRN (10:48)
--- NOTE | 2017-11-26 16:54 | SOAPPROG ---
SOAP Progress Note Assessment/Plan: Assessment: Per Dr. Huang's note: 11/22/17 20:57 Mood: MUCH improved. Already turning the corner and resumed capacity and reasoning. Will CCM. 11/24/17 21:02 MooD: Continued improvement with ECT. CCM. Subjective: Pt seen, discussed with staff. Reports feeling "much better." Participated in Treatment Team meeting. Appropriate and interactive. Much less irritable. Did not mention euthanasia. PLAN: 11/26/17 16:51 1. Improved from last weekend when MD saw her. She is less labile, less depressed/despondent. She is not talking about [facility] or euthanasia. She is more future-oriented and making reasonable choices about her treatment. 2. Slept 8 hrs last night. Ate 40-75% of meals today. 3. ECT continues on Tuesday. Subjective: Patient presents much less labile than last weekend. She is not tearful or sad. She told CC that she is looking forward to spending time with her children and grandchildren after discharge. She reports "occasional SI" but no plan or intent to harm herself or anyone else. She did not mention [facility] or other places in [place] that allow euthanasia. Objective: Vital Signs Temp Pulse Resp BP Pulse Ox 36.8 C 55 L 14 108/54 L 93 11/26/17 06:00 11/26/17 06:00 11/26/17 06:00 11/26/17 06:00 11/26/17 06:00 11/25/17 11/26/17 11/27/17 05:59 05:59 05:59 Intake Total 850 Balance 850 MSE: Affect: Brighter, not tearful at all Mood: "OK" TP: Linear TC: "Occasional SI" but denies any plan or intent Insight/Judgment: Improved - Time Spent With Patient Time Spent With Patient: 15" - Pending Discharge Pending Discharge Within 24 Hours: No Pending Discharge Within 48 Hours: No ICD10 Worksheet Patient Problems: Problems Problem Status Onset Severe major depression Acute Attempted suicide Acute Ingestion of corrosive chemical Acute
[2017-11-26] MEDS: clonazePAM 1 MG TAB PO SCH (21:29)
[2017-11-26] MEDS: MIRTAZAPINE 30 MG TAB PO SCH (21:29)
[2017-11-26] MEDS: traZODone 100 MG TAB PO SCH (21:47)
[2017-11-27] MEDS: CHOLECALCIFEROL VIT D3 2,000 UNITS TAB/CAP PO SCH (08:07)
[2017-11-27] MEDS: OMEGA-3 FATTY ACIDS 1,000 MG CAP PO SCH (08:07)
[2017-11-27] MEDS: CYANO/VITAMIN B12 1000 MCG TAB PO SCH (08:07)
[2017-11-27] MEDS: PANTOPRAZOLE SODIUM 40 MG TAB PO SCH (08:07)
[2017-11-27] MEDS: VENLAFAXINE XR 150 MG CAP PO SCH (08:07)
[2017-11-27] MEDS: LEVOTHYROXINE 88 MCG TAB PO SCH (10:34)
[2017-11-27] MEDS: IBUPROFEN 200 MG TAB PO PRN (11:57)
--- NOTE | 2017-11-27 15:52 | SOAPPROG ---
SOAP Progress Note Assessment/Plan: Assessment: Per Dr. Huang's note: 11/22/17 20:57 Mood: MUCH improved. Already turning the corner and resumed capacity and reasoning. Will CCM. 11/24/17 21:02 MooD: Continued improvement with ECT. CCM. Subjective: Pt seen, discussed with staff. Reports feeling "much better." Participated in Treatment Team meeting. Appropriate and interactive. Much less irritable. Did not mention euthanasia. PLAN: 11/26/17 16:51 1. Improved from last weekend when MD saw her. She is less labile, less depressed/despondent. She is not talking about [place] or euthanasia. She is more future-oriented and making reasonable choices about her treatment. 2. Slept 8 hrs last night. Ate 40-75% of meals today. 3. ECT continues on Tuesday. PLAN: 11/27/17 15:49 1. More labile and tearful today. Does not mention suicide or euthanasia. 2. Refused to wear brace and practice OT exercises for hand. 3. Occupational therapist was present on unit and massaged patient's arm to help reduce swelling and did some ROM exercises. Patient said it "helped." 4. Patient has ambivalent feelings about ECT, feels "sad" and "scared" but admits it "helps." Subjective: Patient is sitting on edge of her bed with arm propped on pillow. Occupational therapist is present massaging patient's arm and helping her do some exercises. Patient initially smiles at MD and says the OT is making her feel a lot "better. " However, when MD starts to talk about her psych tx, she becomes emotional and tearful. Objective: Vital Signs Temp Pulse Resp BP Pulse Ox 36.8 C 55 L 14 108/54 L 93 11/26/17 06:00 11/26/17 06:00 11/26/17 06:00 11/26/17 06:00 11/26/17 06:00 11/26/17 11/27/17 11/28/17 05:59 05:59 05:59 Intake Total 850 Balance 850 MSE: Affect: Labile, tearful Mood: "Not good" TP: Tangential TC: Denies SI/ HI Insight/Judgment: Poor - Time Spent With Patient Time Spent With Patient: 15" - Pending Discharge Pending Discharge Within 24 Hours: No Pending Discharge Within 48 Hours: No ICD10 Worksheet Patient Problems: Problems Problem Status Onset Severe major depression Acute Attempted suicide Acute Ingestion of corrosive chemical Acute
[2017-11-27] MEDS: clonazePAM 1 MG TAB PO SCH (20:57)
[2017-11-27] MEDS: traZODone 100 MG TAB PO SCH (21:15)
[2017-11-27] MEDS: MIRTAZAPINE 30 MG TAB PO SCH (21:15)
[2017-11-28] MEDS: PANTOPRAZOLE SODIUM 40 MG TAB PO SCH (06:16)
[2017-11-28] MEDS ORDERED: KETOROLAC 30 MG/1 ML SDV ONE (06:46)
[2017-11-28] MEDS ORDERED: ONDANSETRON 4 MG/2 ML VIAL ONE (06:46)
[2017-11-28] MEDS ORDERED: fentaNYL 100 MCG/2 ML INJ ONE (06:46)
[2017-11-28] MEDS ORDERED: GLYCOPYRROLATE 0.2 MG/1 ML VIAL ONE (06:46)
[2017-11-28] MEDS ORDERED: MIDAZOLAM 2 MG/2 ML VIAL ONE (06:46)
[2017-11-28] MEDS ORDERED: SUCCINYLCHOLINE CHLORIDE 200 MG/10 ML VIAL ONE (06:46)
[2017-11-28] MEDS ORDERED: PROPOFOL 200 MG/20 ML VIAL ONE (06:46)
[2017-11-28] MEDS ORDERED: ROCURONIUM 50 MG/5 ML VIAL ONE (06:46)
[2017-11-28] MEDS ORDERED: METHOHEXITAL SODIUM 100 MG/10 ML SYR IVP ONE (06:47)
[2017-11-28] MEDS: OMEGA-3 FATTY ACIDS 1,000 MG CAP PO SCH (08:34)
[2017-11-28] MEDS: CHOLECALCIFEROL VIT D3 2,000 UNITS TAB/CAP PO SCH (08:34)
[2017-11-28] MEDS: VENLAFAXINE XR 150 MG CAP PO SCH (08:35)
[2017-11-28] MEDS: CYANO/VITAMIN B12 1000 MCG TAB PO SCH (08:37)
[2017-11-28] MEDS ORDERED: CITRIC ACID/SODIUM CITRATE 30 ML UDCUP ONE (08:39)
[2017-11-28] MEDS ORDERED: ONDANSETRON DISINTEGRATING 4 MG TAB ONE ×2 (08:39→10:18)
[2017-11-28] MEDS ORDERED: CITRIC ACID/SODIUM CITRATE 30 ML UDCUP PO PRN (09:08)
[2017-11-28] MEDS ORDERED: NS 1,000 ML IV PRN (09:08)
[2017-11-28] MEDS ORDERED: ONDANSETRON DISINTEGRATING 4 MG TAB PO PRN (09:08)
--- NOTE | 2017-11-28 09:30 | PDECTPN ---
ECT Progress Note Patient Problems: Problems Problem Status Onset Code Attempted suicide Acute T14.91XA Ingestion of corrosive chemical Acute T54.91XA Severe major depression Acute F32.2 Date: 11/28/17 Treatment#: 5 ECT provider: Antwan Fernandez Stimulus dose (%): 70 Pulse width: 0.5 ECT EMG (sec): 24 ECT EEG (sec): 41 ECT treatment type: bilateral QIDS-SR Total Score: 11 QIDS-SR Question #12 Score: 0 MMSE Total Score (Max = 21): 20 Next ECT date: 11/30/17 Next ECT time: 07:30 Home medications: Medication Instructions Recorded Levothyroxine [Synthroid 88 mcg 88 mcg PO DAILY06 11/19/14 (*)] Cholecalciferol Vit D3 [Vitamin D3 5,000 units PO DAILY 11/15/17 2000 units tab (OTC)] Cyanocobalamin [Vitamin B12 (*)] 1,000 mcg PO DAILY 11/15/17 Ibuprofen [Motrin (*)] 400 mg PO Q8 PRN 11/15/17 Mirtazapine [Remeron] 30 mg PO HS 11/15/17 [place]-3 Fatty Acids [Fish Oil 1000 1,000 mg PO DAILY 11/15/17 mg (*)] Omeprazole 40 mg PO DAILY 11/15/17 Venlafaxine Xr [Effexor Xr] 150 mg PO DAILY 11/15/17 clonazePAM [klonoPIN (*)] 1 mg PO HS 11/15/17 traZODone [traZODONE 100MG (*)] 100 mg PO HS 11/15/17 Current treatment plan: acute phase Treatment plan frequency: 3 times per week ECT narrative: Reviewed MD notes and Dr Stearns initial consult. Pt appears quite anxious and desperate, shaking her head back and forth as if in pain. She is not in physical distress but is psychically so. She has eyes closed. Can answer basic , structured questions. When asked if she feels she improving, she states "I dont know". Objectively, her QIDS is down from 30 to 11 and per RNs, seems clearly better, albeit not at baseline clearly. Poor insight, judgement. Speech impoverished. Sense of nihilism, futility and hopelessness. Will check some organic labs. Will re check TSH which is borderline high, along with anti thyroid abs. May benefit from increase in synthroid.
[2017-11-28] MEDS: ONDANSETRON DISINTEGRATING 4 MG TAB PO PRN (10:18)
[2017-11-28] MEDS: LEVOTHYROXINE 88 MCG TAB PO SCH (10:40)
[2017-11-28] MEDS: IBUPROFEN 200 MG TAB PO PRN (16:20)
[2017-11-28] MEDS: MIRTAZAPINE 30 MG TAB PO SCH (21:15)
[2017-11-28] MEDS: traZODone 100 MG TAB PO SCH (21:15)
[2017-11-28] MEDS: clonazePAM 1 MG TAB PO SCH (21:15)
[2017-11-29] MEDS: CYANO/VITAMIN B12 1000 MCG TAB PO SCH (08:20)
[2017-11-29] MEDS: CHOLECALCIFEROL VIT D3 2,000 UNITS TAB/CAP PO SCH (08:20)
[2017-11-29] MEDS: PANTOPRAZOLE SODIUM 40 MG TAB PO SCH (08:20)
[2017-11-29] MEDS: OMEGA-3 FATTY ACIDS 1,000 MG CAP PO SCH (08:20)
[2017-11-29] MEDS: VENLAFAXINE XR 150 MG CAP PO SCH (08:20)
[2017-11-29] MEDS: IBUPROFEN 200 MG TAB PO PRN (08:28)
[2017-11-29] MEDS ORDERED: QUEtiapine FUMARATE 25 MG TAB PO PRN (11:07)
--- NOTE | 2017-11-29 11:17 | SOAPPROG ---
SOAP Progress Note Assessment/Plan: Assessment: TRD, severe PD NOS Hypothyroidism Cervical Dystonia Plan: Pt in bed, eyes closed but awake. [place] pulled tightly over her up to her neck , in position, complaining of feeling "horrible" with somatic concerns prominent (nausea, neck dystonia, tremor, fatigue, "hard to get out of bed") as well as cognitions c/w her depression: hopelessness, despair, guilt, burden. She had pleading quality to her voice, nearly crying her words. Feels "scared". Nil eye contact. PMR. Dysphoric mood, SI, No insight into modest improvements that are otherwise apparent to staff. Up for TSH, Free T4, Antithyroid Abs to be drawn in ECT in AM. Will try very low dose seroquel 25 mg q 6 prn to address anxiety. This low dose, low potency AAP should not affect dystonia in any meaningful way, I believe. Cont Acute ECT. PT given reassurance that it has yet to really "kick in" but likely will as it had in the past. 11/29/17 11:11 Objective: Vital Signs Temp Pulse Resp BP Pulse Ox 36.7 C 59 L 16 122/60 H 93 11/29/17 06:00 11/29/17 06:00 11/29/17 06:00 11/29/17 06:00 11/29/17 06:00 11/28/17 11/29/17 11/30/17 05:59 05:59 05:59 Intake Total 1300 Balance 1300 ICD10 Worksheet Patient Problems: Problems Problem Status Onset Severe major depression Acute Attempted suicide Acute Ingestion of corrosive chemical Acute
[2017-11-29] MEDS: LEVOTHYROXINE 88 MCG TAB PO SCH (11:31)
[2017-11-29] MEDS: traZODone 100 MG TAB PO SCH (21:05)
[2017-11-29] MEDS: MIRTAZAPINE 30 MG TAB PO SCH (21:05)
[2017-11-30] MEDS: PANTOPRAZOLE SODIUM 40 MG TAB PO SCH ×2 (05:27→10:14)
[2017-11-30] MEDS ORDERED: ONDANSETRON DISINTEGRATING 4 MG TAB ONE (06:43)
[2017-11-30] MEDS ORDERED: KETOROLAC 30 MG/1 ML SDV ONE (07:00)
[2017-11-30] MEDS ORDERED: ONDANSETRON 4 MG/2 ML VIAL ONE (07:00)
[2017-11-30] MEDS ORDERED: fentaNYL 100 MCG/2 ML INJ ONE (07:00)
[2017-11-30] MEDS ORDERED: MIDAZOLAM 2 MG/2 ML VIAL ONE (07:00)
[2017-11-30] MEDS ORDERED: GLYCOPYRROLATE 0.2 MG/1 ML VIAL ONE (07:00)
[2017-11-30] MEDS ORDERED: ROCURONIUM 50 MG/5 ML VIAL ONE (07:01)
[2017-11-30] MEDS ORDERED: PROPOFOL 200 MG/20 ML VIAL ONE (07:01)
[2017-11-30] MEDS ORDERED: METHOHEXITAL SODIUM 100 MG/10 ML SYR IVP ONE (07:01)
[2017-11-30] MEDS ORDERED: SUCCINYLCHOLINE CHLORIDE 200 MG/10 ML VIAL ONE (07:01)
[2017-11-30] MEDS ORDERED: NS 1,000 ML IV PRN (07:48)
[2017-11-30] MEDS ORDERED: CITRIC ACID/SODIUM CITRATE 30 ML UDCUP PO PRN (07:48)
[2017-11-30] MEDS ORDERED: ONDANSETRON DISINTEGRATING 4 MG TAB PO PRN (07:48)
--- NOTE | 2017-11-30 07:49 | PDECTPN ---
ECT Progress Note Patient Problems: Problems Problem Status Onset Code Severe major depression Acute F32.2 Attempted suicide Acute T14.91XA Ingestion of corrosive chemical Acute T54.91XA Date: 11/30/17 Treatment#: 6 ECT provider: Antwan Fernandez Anesthesia: Mark Sher Stimulus dose (%): 75 Pulse width: 0.5 ECT EMG (sec): 25 ECT EEG (sec): 36 ECT treatment type: bilateral QIDS-SR Total Score: 13 QIDS-SR Question #12 Score: 2 MMSE Total Score (Max = 21): 20 Next ECT date: 12/02/17 Next ECT time: 07:45 Home medications: Medication Instructions Recorded Levothyroxine [Synthroid 88 mcg 88 mcg PO DAILY06 11/19/14 (*)] Cholecalciferol Vit D3 [Vitamin D3 5,000 units PO DAILY 11/15/17 2000 units tab (OTC)] Cyanocobalamin [Vitamin B12 (*)] 1,000 mcg PO DAILY 11/15/17 Ibuprofen [Motrin (*)] 400 mg PO Q8 PRN 11/15/17 Mirtazapine [Remeron] 30 mg PO HS 11/15/17 [place]-3 Fatty Acids [Fish Oil 1000 1,000 mg PO DAILY 11/15/17 mg (*)] Omeprazole 40 mg PO DAILY 11/15/17 Venlafaxine Xr [Effexor Xr] 150 mg PO DAILY 11/15/17 clonazePAM [klonoPIN (*)] 1 mg PO HS 11/15/17 traZODone [traZODONE 100MG (*)] 100 mg PO HS 11/15/17 Current treatment plan: acute phase Treatment plan frequency: 3 times per week ECT narrative: Reviewed MD notes and Dr Stearns initial consult. Pt appears quite anxious and desperate, shaking her head back and forth as if in pain. She is not in physical distress but is psychically so. She has eyes closed. Can answer basic , structured questions. When asked if she feels she improving, she states "I dont know". Objectively, her QIDS is down from 30 to 11 and per RNs, seems clearly better, albeit not at baseline clearly. Poor insight, judgement. Speech impoverished. Sense of nihilism, futility and hopelessness. Will check some organic labs. Will re check TSH which is borderline high, along with anti thyroid abs. May benefit from increase in synthroid. SOAP note from 11/29: Pt in bed, eyes closed but awake. [place] pulled tightly over her up to her neck , in position, complaining of feeling "horrible" with somatic concerns prominent (nausea, neck dystonia, tremor, fatigue, "hard to get out of bed") as well as cognitions c/w her depression: hopelessness, despair, guilt, burden. She had pleading quality to her voice, nearly crying her words. Feels "scared". Nil eye contact. PMR. Dysphoric mood, SI, No insight into modest improvements that are otherwise apparent to staff. Up for TSH, Free T4, Antithyroid Abs to be drawn in ECT in AM. Will try very low dose seroquel 25 mg q 6 prn to address anxiety. This low dose, low potency AAP should not affect dystonia in any meaningful way, I believe. Cont Acute ECT. PT given reassurance that it has yet to really "kick in" but likely will as it had in the past. 11/30 Pt felt no clear benefit from single dose of seroquel prn yesterday. Will d/c this prn. Pt remains anxious, dysphroric, somatically preoccupied. She seems to accentuate her "dystonia" in the form of high amplitude, low frequency shaking of head as if indicating "No". Thyroid related labs drawn in ECT
[2017-11-30] MEDS ORDERED: CITRIC ACID/SODIUM CITRATE 30 ML UDCUP ONE (07:51)
[2017-11-30] MEDS: IBUPROFEN 200 MG TAB PO PRN (08:54)
[2017-11-30] MEDS ORDERED: IBUPROFEN 200 MG TAB PO ONE (08:54)
[2017-11-30] MEDS: CHOLECALCIFEROL VIT D3 2,000 UNITS TAB/CAP PO SCH (10:14)
[2017-11-30] MEDS: VENLAFAXINE XR 150 MG CAP PO SCH (10:14)
[2017-11-30] MEDS: OMEGA-3 FATTY ACIDS 1,000 MG CAP PO SCH (10:14)
[2017-11-30] MEDS: LEVOTHYROXINE 88 MCG TAB PO SCH (10:14)
[2017-11-30] MEDS: CYANO/VITAMIN B12 1000 MCG TAB PO SCH (10:14)
--- NOTE | 2017-11-30 13:24 | ASMTCMCOM ---
KRZYSZTOF Note CM Note Notes: This song writer spoke with the ECT provider who reported that the patient is not sustaining her improvement from treatment. The patient continues to somaticize her symptoms pre-treatment; following treatment she appears brighter temporarily. Currently, the patient would have difficulty managing at home. The patient will likely continue treatment through next week. The patient is completing 50% of her meals and achieved 9 hours of sleep overnight. She participated in ECT treatment this morning as well. Date Signed: 11/30/2017 12:49 PM Electronically Signed By:Poppy Aguilar
[2017-11-30] MEDS: clonazePAM 1 MG TAB PO SCH (21:22)
[2017-11-30] MEDS: MIRTAZAPINE 30 MG TAB PO SCH (21:22)
[2017-11-30] MEDS: traZODone 100 MG TAB PO SCH (21:22)
[2017-12-01] MEDS: VENLAFAXINE XR 150 MG CAP PO SCH (10:56)
[2017-12-01] MEDS: OMEGA-3 FATTY ACIDS 1,000 MG CAP PO SCH (10:56)
[2017-12-01] MEDS: CYANO/VITAMIN B12 1000 MCG TAB PO SCH (10:56)
[2017-12-01] MEDS: PANTOPRAZOLE SODIUM 40 MG TAB PO SCH ×3 (10:56→10:59)
[2017-12-01] MEDS: CHOLECALCIFEROL VIT D3 2,000 UNITS TAB/CAP PO SCH (10:58)
[2017-12-01] MEDS: LEVOTHYROXINE 88 MCG TAB PO SCH (10:59)
--- NOTE | 2017-12-01 11:26 | ASMTCMCOM ---
CM Note CM Note Notes: The patient refused to participate in clinical treatment team rounds. The patient did not elaborate on her reasoning. She reported concern about her left wrist being swollen. She stated, "I'm not able to do my exercises." Per [facility] staff, the patient also disclosed that her lips are numb. The patient reportedly slept nine hours overnight and refused her scheduled lithium. Date Signed: 12/01/2017 11:25 AM Electronically Signed By:Poppy Aguilar
--- NOTE | 2017-12-01 15:45 | SOAPPROG ---
SOAP Progress Note Assessment/Plan: Assessment: TRD, severe PD NOS Hypothyroidism Cervical Dystonia Plan: Pt in bed, eyes closed but awake. [place] pulled tightly over her up to her neck , in position, complaining of feeling "horrible" with somatic concerns prominent (nausea, neck dystonia, tremor, fatigue, "hard to get out of bed") as well as cognitions c/w her depression: hopelessness, despair, guilt, burden. She had pleading quality to her voice, nearly crying her words. Feels "scared". Nil eye contact. PMR. Dysphoric mood, SI, No insight into modest improvements that are otherwise apparent to staff. Up for TSH, Free T4, Antithyroid Abs to be drawn in ECT in AM. Will try very low dose seroquel 25 mg q 6 prn to address anxiety. This low dose, low potency AAP should not affect dystonia in any meaningful way, I believe. Cont Acute ECT. PT given reassurance that it has yet to really "kick in" but likely will as it had in the past. 11/29/17 11:11 12/01/17 15:41 Pt sitting up in bed around 9 am, relatively calm, pleasant, and engaged. Feels more hopeful that the ECT is helping. Less intense somatic concerns but still focused on Dystonia, for which she is late in getting botox. Sleep better. Appetite good. Not quite back to her "spirited and happy" self however. This is the clearest evidence of postive change thus far. Reviewed the virtue with pt of mECT. Pt complains, appropriately, about wrist swelling where her fracture was. RN to contact OT and maybe hospitalist. Objective: Vital Signs Temp Pulse Resp BP Pulse Ox 36.8 C 49 L 14 114/56 L 94 12/01/17 06:00 12/01/17 06:00 12/01/17 06:00 12/01/17 06:00 12/01/17 06:00 11/30/17 12/01/17 12/02/17 05:59 05:59 05:59 Intake Total 750 Balance 750 ICD10 Worksheet Patient Problems: Problems Problem Status Onset Severe major depression Acute Attempted suicide Acute Ingestion of corrosive chemical Acute
[2017-12-01] MEDS: MIRTAZAPINE 30 MG TAB PO SCH (21:53)
[2017-12-01] MEDS: traZODone 100 MG TAB PO SCH (21:54)
[2017-12-02] MEDS: PANTOPRAZOLE SODIUM 40 MG TAB PO SCH ×2 (06:03→10:07)
[2017-12-02] MEDS ORDERED: KETOROLAC 30 MG/1 ML SDV ONE (07:38)
[2017-12-02] MEDS ORDERED: fentaNYL 100 MCG/2 ML INJ ONE (07:38)
[2017-12-02] MEDS ORDERED: MIDAZOLAM 2 MG/2 ML VIAL ONE (07:38)
[2017-12-02] MEDS ORDERED: GLYCOPYRROLATE 0.2 MG/1 ML VIAL ONE (07:38)
[2017-12-02] MEDS ORDERED: ONDANSETRON 4 MG/2 ML VIAL ONE (07:38)
[2017-12-02] MEDS ORDERED: METHOHEXITAL SODIUM 100 MG/10 ML SYR IVP ONE (07:39)
[2017-12-02] MEDS ORDERED: SUCCINYLCHOLINE CHLORIDE 200 MG/10 ML VIAL ONE (07:39)
[2017-12-02] MEDS ORDERED: ROCURONIUM 50 MG/5 ML VIAL ONE (07:39)
[2017-12-02] MEDS ORDERED: PROPOFOL 200 MG/20 ML VIAL ONE (07:39)
[2017-12-02] MEDS ORDERED: QUEtiapine FUMARATE 50 MG TAB PO ONE (07:59)
[2017-12-02] MEDS ORDERED: CITRIC ACID/SODIUM CITRATE 30 ML UDCUP ONE (08:06)
[2017-12-02] MEDS ORDERED: ONDANSETRON DISINTEGRATING 4 MG TAB ONE (08:06)
[2017-12-02] MEDS ORDERED: NS 1,000 ML IV PRN (08:36)
[2017-12-02] MEDS ORDERED: ONDANSETRON DISINTEGRATING 4 MG TAB PO PRN (08:36)
[2017-12-02] MEDS ORDERED: CITRIC ACID/SODIUM CITRATE 30 ML UDCUP PO PRN ×2 (08:36→14:17)
--- NOTE | 2017-12-02 08:53 | PDECTPN ---
ECT Progress Note Patient Problems: Problems Problem Status Onset Code Severe major depression Acute F32.2 Attempted suicide Acute T14.91XA Ingestion of corrosive chemical Acute T54.91XA Date: 12/02/17 Treatment#: 7 ECT provider: nAtwan Fernandez Stimulus dose (%): 85 Pulse width: 0.5 ECT EMG (sec): 21 ECT EEG (sec): 42 ECT treatment type: bilateral QIDS-SR Total Score: 9 QIDS-SR Question #12 Score: 0 MMSE Total Score (Max = 21): 20 Next ECT date: 12/05/17 Next ECT time: 07:45 Home medications: Medication Instructions Recorded Levothyroxine [Synthroid 88 mcg 88 mcg PO DAILY06 11/19/14 (*)] Cholecalciferol Vit D3 [Vitamin D3 5,000 units PO DAILY 11/15/17 2000 units tab (OTC)] Cyanocobalamin [Vitamin B12 (*)] 1,000 mcg PO DAILY 11/15/17 Ibuprofen [Motrin (*)] 400 mg PO Q8 PRN 11/15/17 Mirtazapine [Remeron] 30 mg PO HS 11/15/17 [place]-3 Fatty Acids [Fish Oil 1000 1,000 mg PO DAILY 11/15/17 mg (*)] Omeprazole 40 mg PO DAILY 11/15/17 Venlafaxine Xr [Effexor Xr] 150 mg PO DAILY 11/15/17 clonazePAM [klonoPIN (*)] 1 mg PO HS 11/15/17 traZODone [traZODONE 100MG (*)] 100 mg PO HS 11/15/17 Medication review: completed Current treatment plan: acute phase Treatment plan frequency: 3 times per week ECT narrative: Reviewed MD notes and Dr Stearns initial consult. Pt appears quite anxious and desperate, shaking her head back and forth as if in pain. She is not in physical distress but is psychically so. She has eyes closed. Can answer basic , structured questions. When asked if she feels she improving, she states "I dont know". Objectively, her QIDS is down from 30 to 11 and per RNs, seems clearly better, albeit not at baseline clearly. Poor insight, judgement. Speech impoverished. Sense of nihilism, futility and hopelessness. Will check some organic labs. Will re check TSH which is borderline high, along with anti thyroid abs. May benefit from increase in synthroid. SOAP note from 11/29: Pt in bed, eyes closed but awake. [place] pulled tightly over her up to her neck , in position, complaining of feeling "horrible" with somatic concerns prominent (nausea, neck dystonia, tremor, fatigue, "hard to get out of bed") as well as cognitions c/w her depression: hopelessness, despair, guilt, burden. She had pleading quality to her voice, nearly crying her words. Feels "scared". Nil eye contact. PMR. Dysphoric mood, SI, No insight into modest improvements that are otherwise apparent to staff. Up for TSH, Free T4, Antithyroid Abs to be drawn in ECT in AM. Will try very low dose seroquel 25 mg q 6 prn to address anxiety. This low dose, low potency AAP should not affect dystonia in any meaningful way, I believe. Cont Acute ECT. PT given reassurance that it has yet to really "kick in" but likely will as it had in the past. 11/30 Pt felt no clear benefit from single dose of seroquel prn yesterday. Will d/c this prn. Pt remains anxious, dysphroric, somatically preoccupied. She seems to accentuate her "dystonia" in the form of high amplitude, low frequency shaking of head as if indicating "No". Thyroid related labs drawn in ECT 12/02/17 SOAP note from 12/01: Pt sitting up in bed around 9 am, relatively calm, pleasant, and engaged. Feels more hopeful that the ECT is helping. Less intense somatic concerns but still focused on Dystonia, for which she is late in getting botox. Sleep better. Appetite good. Not quite back to her "spirited and happy" self however. This is the clearest evidence of postive change thus far. Reviewed the virtue with pt of mECT. Pt complains, appropriately, about wrist swelling where her fracture was. RN to contact OT and maybe hospitalist. Today, pre ECT, pt is back to extremely anxious, dysphoric, stating she is "terrified" to do ECT, keeping eyes closed tightly while being prepped, with cervical dystonia seemingly being accentuated, in part volitionally, in my opinion. Her TSH was re done and found to be >9. Free T4 wnl .. Thyroid autoantibodies are non contributory.. Will increase her synthroid Laboratory Tests 11/30/17 11/30/17 07:35 07:35 TSH 9.570 H Free T4 1.47 Thyroperoxidase Ab 1.9 Thyroglobulin Ab Screen <1.8
[2017-12-02] MEDS ORDERED: HYDROCODONE/APAP 5/325 TAB PO PRN ×2 (09:00→09:23)
[2017-12-02] MEDS ORDERED: NALOXONE HCL 0.4 MG/ML INJ IVP PRN ×2 (09:00→09:23)
[2017-12-02] MEDS ORDERED: LEVOTHYROXINE 88 MCG TAB PO SCH (09:01)
--- NOTE | 2017-12-02 09:05 | PDANEPAE ---
ECT Pre Anesthetic Evaluation Allergies/Adverse Reactions: No Known Allergies Allergy (Verified 11/15/17 09:31) Patient ID confirmed: Yes H&P reviewed: Yes Pre-anesthetic history reviewed: Yes Heart: regular rate and rhythym Lungs: no respiratory distress Mallampati Score: Class 1 ASA Status: II Home Medications: Medication Instructions Recorded Levothyroxine [Synthroid 88 mcg 88 mcg PO DAILY06 11/19/14 (*)] Cholecalciferol Vit D3 [Vitamin D3 5,000 units PO DAILY 11/15/17 2000 units tab (OTC)] Cyanocobalamin [Vitamin B12 (*)] 1,000 mcg PO DAILY 11/15/17 Ibuprofen [Motrin (*)] 400 mg PO Q8 PRN 11/15/17 Mirtazapine [Remeron] 30 mg PO HS 11/15/17 [place]-3 Fatty Acids [Fish Oil 1000 1,000 mg PO DAILY 11/15/17 mg (*)] Omeprazole 40 mg PO DAILY 11/15/17 Venlafaxine Xr [Effexor Xr] 150 mg PO DAILY 11/15/17 clonazePAM [klonoPIN (*)] 1 mg PO HS 11/15/17 traZODone [traZODONE 100MG (*)] 100 mg PO HS 11/15/17 Medication review: completed Patient interviewed: Yes Patient examined: Yes Anesthetic plan discussed with patient: Yes Anesthetic risks discussed with patient: Yes ECT Pre-Anesthetic History - Height & Weight Height: 162.56 cm Weight: 60.781 kg BMI: 23.02 - Anesthesia History Hx Anesthesia Complications (with details): None reported Family Hx Anesthesia Complications: None reported - Medications In the Past 6 Months the Patient Has Taken: Thyroid Medication - Tobacco/Alcohol/Drug Use Smoking Status: Never smoked Hx Drug/Substance Abuse: No Alcohol Use: No - Prior Surgeries/Hospitalizations Prior Surgeries: Recent broken lt wrist with surgical repair. Umbilical surgery in 1976, [place] teeth removal 1966, bladder stone removal in 1984 - Pulmonary History ECT Hx Asthma: No Hx Abnormal Chest X-Ray: No Hx Oxygen in Use at Home: No - Cardiovascular History Hx Hypertension: No Currently Uses Hypertension Medication: No Hx Arrhythmias: Yes Hx Palpitations: No Hx Chest Pain: No Hx Coronary Artery / Peripheral Vascular Disease: No Hx Blood Clot: No Cardiovascular History Comment: Pt reports a possible history of irregular heart beat but unclear and unsure. - Neurologic History Hx Cerebrovascular Accident: No Hx CT Scan Or MRI Of The Brain: Yes Hx Epilepsy, Convulsions, Seizures, Or Blackouts: No Hx Frequent Or Severe Headaches: No Hx Numbness: No Hx Neurologic Disorder: Yes Neurologic History Comment: Pt is unsure if she has had a CT or MRI. Cervical dystonia follows with neurology. - Dental History Current Dental Issues: None - Endocrine History Hx Diabetes: No Current Daily Insulin Injections: No Hx Thyroid Problems: Yes Endocrine History Comment: Hypothyroid with history of ablation. - Renal/Urologic History Hx Renal Disorders: No Hx Urinary Tract Problems: No - Liver History Hx Hepatic Disorders: No - Cancer History Hx Cancer: No - Hematology History Hx Unexplained Bleeding Of Any Type: No Hx Ease Of Bruising: No Hx Anemia: No - Gastrointestinal History Hx Gastroesophogeal Reflux Disease: Yes Hx Ulcers: No Hx Hiatal Hernia: No Hx Difficulty Swallowing: No - Musculoskeletal Hisory Hx Chronic Pain: Yes Chronic Pain Location: Neck Hx Arthritis: No Musculoskeletal History Comment: Pain related to cervical dystonia. - Opthalmic History Hx Glaucoma: No Visual Assistive Devices: Glasses - Other Health History Physical Disabililty: No Recent Cough, Cold, or Fever: No Significant Weight Loss In The Last 4 Months: No Possible the Patient Might be : No
[2017-12-02] MEDS: CYANO/VITAMIN B12 1000 MCG TAB PO SCH (10:07)
[2017-12-02] MEDS: VENLAFAXINE XR 150 MG CAP PO SCH (10:08)
[2017-12-02] MEDS: OMEGA-3 FATTY ACIDS 1,000 MG CAP PO SCH (10:08)
[2017-12-02] MEDS: LEVOTHYROXINE 100 MCG TAB PO SCH (10:08)
[2017-12-02] MEDS: CHOLECALCIFEROL VIT D3 2,000 UNITS TAB/CAP PO SCH (10:08)
[2017-12-02] MEDS: ONDANSETRON DISINTEGRATING 4 MG TAB PO PRN (10:32)
[2017-12-02] MEDS: clonazePAM 1 MG TAB PO SCH (20:27)
[2017-12-02] MEDS: traZODone 100 MG TAB PO SCH (20:28)
[2017-12-02] MEDS: MIRTAZAPINE 30 MG TAB PO SCH (20:28)
[2017-12-03] MEDS: OMEGA-3 FATTY ACIDS 1,000 MG CAP PO SCH (08:42)
[2017-12-03] MEDS: VENLAFAXINE XR 150 MG CAP PO SCH (08:42)
[2017-12-03] MEDS: PANTOPRAZOLE SODIUM 40 MG TAB PO SCH (08:43)
[2017-12-03] MEDS: CHOLECALCIFEROL VIT D3 2,000 UNITS TAB/CAP PO SCH (08:43)
[2017-12-03] MEDS: CYANO/VITAMIN B12 1000 MCG TAB PO SCH (08:43)
[2017-12-03] MEDS: LEVOTHYROXINE 100 MCG TAB PO SCH (11:08)
--- NOTE | 2017-12-03 17:14 | SOAPPROG ---
SOAP Progress Note Assessment/Plan: Assessment: Per Dr. Fernandez's note: 12/01/17 15:41 Pt sitting up in bed around 9 am, relatively calm, pleasant, and engaged. Feels more hopeful that the ECT is helping. Less intense somatic concerns but still focused on Dystonia, for which she is late in getting botox. Sleep better. Appetite good. Not quite back to her "spirited and happy" self however. This is the clearest evidence of postive change thus far. [facility] Pt complains, appropriately, about wrist swelling where her fracture was. RN to contact OT and maybe hospitalist. PLAN: 12/03/17 17:11 1. Patient participated in group therapy this AM. Somewhat brighter affect. 2. Patient has decreased swelling in arm, is practicing exercises. 3. More hopeful and slightly optimistic. 4. CCM Subjective: Patient attended group therapy this AM. She is slightly more engaged with milieu , routine and peers/staff. Last weekend she hardly left her room and was very labile. Today, she is present in milieu, interacting with peers/staff and somewhat brighter affect. Objective: Vital Signs Temp Pulse Resp BP Pulse Ox 36.7 C 54 L 14 117/63 92 12/03/17 06:00 12/03/17 06:00 12/03/17 06:00 12/03/17 06:00 12/03/17 06:00 12/02/17 12/03/17 12/04/17 05:59 05:59 05:59 Intake Total 950 Balance 950 MSE: Affect: Slightly brighter, not tearful Mood: "OK" TP: Less perseverative about somatic issues TC: Denies any SI/HI Insight/Judgment: Improved - Time Spent With Patient Time Spent With Patient: 15" - Pending Discharge Pending Discharge Within 24 Hours: No Pending Discharge Within 48 Hours: No ICD10 Worksheet Patient Problems: Problems Problem Status Onset Severe major depression Acute Attempted suicide Acute Ingestion of corrosive chemical Acute
[2017-12-03] MEDS: clonazePAM 1 MG TAB PO SCH (20:33)
[2017-12-03] MEDS: MIRTAZAPINE 30 MG TAB PO SCH (20:33)
[2017-12-03] MEDS: traZODone 100 MG TAB PO SCH (20:33)
[2017-12-04] MEDS: CHOLECALCIFEROL VIT D3 2,000 UNITS TAB/CAP PO SCH (08:31)
[2017-12-04] MEDS: OMEGA-3 FATTY ACIDS 1,000 MG CAP PO SCH (08:32)
[2017-12-04] MEDS: CYANO/VITAMIN B12 1000 MCG TAB PO SCH (08:32)
[2017-12-04] MEDS: VENLAFAXINE XR 150 MG CAP PO SCH (08:32)
[2017-12-04] MEDS: PANTOPRAZOLE SODIUM 40 MG TAB PO SCH (08:32)
[2017-12-04] MEDS: MAGNESIUM HYDROXIDE 30 ML UDCUP PO PRN (08:53)
[2017-12-04] MEDS: LEVOTHYROXINE 100 MCG TAB PO SCH (10:26)
--- NOTE | 2017-12-04 14:16 | ASMTBHDC ---
Notes Note: Notes: Pt. reports feeling "okay". Pt. stated she slept "pretty well". Pt. stated she just completed her wrist exercises. Pt. reports eating well and attending some groups. Pt. reports feeling nauseous and is unsure if it's from the medications or from not having a bowel movement recently. Pt. reports wanting to get home to her routine, her "higher fiber foods" and "walking route". Pt was told about ECT tomorrow, pt stated "it's awful", adding "I hate it". Pt. reports not knowing how many more ECT treatments she will need. CC discussed how pt. was talking previously about going to [facility], pt stated "not at this time". Pt. denied SI, HI, AVH and paranoia. Pt. stated she is "restless to get home". Pt. presents as alert, smiling at times, good eye contact, engaging, and with a friendly demeanor. Staff report pt. sleeping 11.5 hours and being medication compliant. Pt. is scheduled for ECT on Tuesday at 7:45am. Date Signed: 12/04/2017 02:15 PM Electronically Signed By:Shira Buenrostro
--- NOTE | 2017-12-04 16:18 | SOAPPROG ---
SOAP Progress Note Assessment/Plan: Assessment: Per Dr. Fernandez's note: 12/01/17 15:41 Pt sitting up in bed around 9 am, relatively calm, pleasant, and engaged. Feels more hopeful that the ECT is helping. Less intense somatic concerns but still focused on Dystonia, for which she is late in getting botox. Sleep better. Appetite good. Not quite back to her "spirited and happy" self however. This is the clearest evidence of postive change thus far. [facility] Pt complains, appropriately, about wrist swelling where her fracture was. RN to contact OT and maybe hospitalist. PLAN: 12/03/17 17:11 1. Patient participated in group therapy this AM. Somewhat brighter affect. 2. Patient has decreased swelling in arm, is practicing exercises. 3. More hopeful and slightly optimistic. 4. CCM 12/04/17 16:14 1. Staff notice brighter affect with smiles and occasional appropriate laughter. 2. Patient denies SI. 3. More willing to acknowledge benefit from ECT. 4. ECT tomorrow Subjective: Patient says she is "ready to go" home. She wants to get back to her "routines. " She c/o constipation and wants to be back on her regular "high fiber" diet. She has taken prune juice and MOM to help. She is no longer contemplating suicide or euthanasia. She denies SI/HI. Objective: Vital Signs Temp Pulse Resp BP Pulse Ox 36.4 C 58 L 16 121/62 H 95 12/04/17 06:00 12/04/17 06:00 12/04/17 06:00 12/04/17 06:00 12/04/17 06:00 12/03/17 12/04/17 12/05/17 05:59 05:59 05:59 Intake Total 950 Balance 950 MSE: Affect: Brighter, some smiles Mood: "Better" TP: Linear TC: No SI/HI Insight/Judgment: Fair - Time Spent With Patient Time Spent With Patient: 15" - Pending Discharge Pending Discharge Within 24 Hours: No Pending Discharge Within 48 Hours: No ICD10 Worksheet Patient Problems: Problems Problem Status Onset Severe major depression Acute Attempted suicide Acute Ingestion of corrosive chemical Acute
[2017-12-04] MEDS: clonazePAM 1 MG TAB PO SCH (16:27)
[2017-12-04] MEDS: MIRTAZAPINE 30 MG TAB PO SCH (20:52)
[2017-12-04] MEDS: traZODone 100 MG TAB PO SCH (20:52)
[2017-12-05] MEDS ORDERED: ONDANSETRON DISINTEGRATING 4 MG TAB ONE (07:17)
[2017-12-05] MEDS ORDERED: CITRIC ACID/SODIUM CITRATE 30 ML UDCUP ONE (07:17)
[2017-12-05] MEDS ORDERED: ONDANSETRON DISINTEGRATING 4 MG TAB PO PRN (07:34)
[2017-12-05] MEDS ORDERED: CITRIC ACID/SODIUM CITRATE 30 ML UDCUP PO PRN (07:34)
[2017-12-05] MEDS ORDERED: NS 1,000 ML IV PRN (07:34)
--- NOTE | 2017-12-05 07:51 | PDANEPAE ---
ECT Pre Anesthetic Evaluation Allergies/Adverse Reactions: No Known Allergies Allergy (Verified 11/15/17 09:31) Patient ID confirmed: Yes H&P reviewed: Yes Pre-anesthetic history reviewed: Yes Heart: regular rate and rhythym, no murmur, rub, or gallop Lungs: no respiratory distress, no rales or rhonchi Mallampati Score: Class 1 ASA Status: II Home Medications: Medication Instructions Recorded Levothyroxine [Synthroid 88 mcg 88 mcg PO DAILY06 11/19/14 (*)] Cholecalciferol Vit D3 [Vitamin D3 5,000 units PO DAILY 11/15/17 2000 units tab (OTC)] Cyanocobalamin [Vitamin B12 (*)] 1,000 mcg PO DAILY 11/15/17 Ibuprofen [Motrin (*)] 400 mg PO Q8 PRN 11/15/17 Mirtazapine [Remeron] 30 mg PO HS 11/15/17 [place]-3 Fatty Acids [Fish Oil 1000 1,000 mg PO DAILY 11/15/17 mg (*)] Omeprazole 40 mg PO DAILY 11/15/17 Venlafaxine Xr [Effexor Xr] 150 mg PO DAILY 11/15/17 clonazePAM [klonoPIN (*)] 1 mg PO HS 11/15/17 traZODone [traZODONE 100MG (*)] 100 mg PO HS 11/15/17 Medication review: completed Patient interviewed: Yes Patient examined: Yes Anesthetic plan discussed with patient: Yes Anesthetic risks discussed with patient: Yes ECT Pre-Anesthetic History - Height & Weight Height: 162.56 cm Weight: 60.98 kg BMI: 23.09 - Anesthesia History Hx Anesthesia Complications (with details): None reported Family Hx Anesthesia Complications: None reported - Medications In the Past 6 Months the Patient Has Taken: Thyroid Medication - Tobacco/Alcohol/Drug Use Smoking Status: Never smoked Hx Drug/Substance Abuse: No Alcohol Use: No - Prior Surgeries/Hospitalizations Prior Surgeries: Recent broken lt wrist with surgical repair. Umbilical surgery in 1976, [place] teeth removal 1966, bladder stone removal in 1984 - Pulmonary History ECT Hx Asthma: No Hx Abnormal Chest X-Ray: No Hx Oxygen in Use at Home: No - Cardiovascular History Hx Hypertension: No Currently Uses Hypertension Medication: No Hx Arrhythmias: Yes Hx Palpitations: No Hx Chest Pain: No Hx Coronary Artery / Peripheral Vascular Disease: No Hx Blood Clot: No Cardiovascular History Comment: Pt reports a possible history of irregular heart beat but unclear and unsure. - Neurologic History Hx Cerebrovascular Accident: No Hx CT Scan Or MRI Of The Brain: Yes Hx Epilepsy, Convulsions, Seizures, Or Blackouts: No Hx Frequent Or Severe Headaches: No Hx Numbness: No Hx Neurologic Disorder: Yes Neurologic History Comment: Pt is unsure if she has had a CT or MRI. Cervical dystonia follows with neurology. - Dental History Current Dental Issues: None - Endocrine History Hx Diabetes: No Current Daily Insulin Injections: No Hx Thyroid Problems: Yes Endocrine History Comment: Hypothyroid with history of ablation. - Renal/Urologic History Hx Renal Disorders: No Hx Urinary Tract Problems: No - Liver History Hx Hepatic Disorders: No - Cancer History Hx Cancer: No - Hematology History Hx Unexplained Bleeding Of Any Type: No Hx Ease Of Bruising: No Hx Anemia: No - Gastrointestinal History Hx Gastroesophogeal Reflux Disease: Yes Hx Ulcers: No Hx Hiatal Hernia: No Hx Difficulty Swallowing: No - Musculoskeletal Hisory Hx Chronic Pain: Yes Chronic Pain Location: Neck Hx Arthritis: No Musculoskeletal History Comment: Pain related to cervical dystonia. - Opthalmic History Hx Glaucoma: No Visual Assistive Devices: Glasses - Other Health History Physical Disabililty: No Recent Cough, Cold, or Fever: No Significant Weight Loss In The Last 4 Months: No Possible the Patient Might be : No
[2017-12-05] MEDS ORDERED: fentaNYL 100 MCG/2 ML INJ ONE (07:55)
[2017-12-05] MEDS ORDERED: MIDAZOLAM 2 MG/2 ML VIAL ONE (07:56)
[2017-12-05] MEDS ORDERED: METHOHEXITAL SODIUM 100 MG/10 ML SYR IVP ONE (07:56)
--- NOTE | 2017-12-05 08:01 | PDECTPN ---
ECT Progress Note Patient Problems: Problems Problem Status Onset Code Severe major depression Acute F32.2 Attempted suicide Acute T14.91XA Ingestion of corrosive chemical Acute T54.91XA Date: 12/05/17 Treatment#: 8 ECT provider: Clem Huang Anesthesia: [place] Stimulus dose (%): 90 Pulse width: 0.5 ECT EMG (sec): 15 ECT EEG (sec): 37 ECT treatment type: bilateral QIDS-SR Total Score: 9 QIDS-SR Question #12 Score: 0 MMSE Total Score (Max = 21): 20 Next ECT date: 12/07/17 Next ECT time: 07:45 Home medications: Medication Instructions Recorded Levothyroxine [Synthroid 88 mcg 88 mcg PO DAILY06 11/19/14 (*)] Cholecalciferol Vit D3 [Vitamin D3 5,000 units PO DAILY 11/15/17 2000 units tab (OTC)] Cyanocobalamin [Vitamin B12 (*)] 1,000 mcg PO DAILY 11/15/17 Ibuprofen [Motrin (*)] 400 mg PO Q8 PRN 11/15/17 Mirtazapine [Remeron] 30 mg PO HS 11/15/17 [place]-3 Fatty Acids [Fish Oil 1000 1,000 mg PO DAILY 11/15/17 mg (*)] Omeprazole 40 mg PO DAILY 11/15/17 Venlafaxine Xr [Effexor Xr] 150 mg PO DAILY 11/15/17 clonazePAM [klonoPIN (*)] 1 mg PO HS 11/15/17 traZODone [traZODONE 100MG (*)] 100 mg PO HS 11/15/17 Medication review: completed Current treatment plan: acute phase Treatment plan frequency: 3 times per week ECT narrative: Pt presents for continued acute course ECT treatment, chart reviewed. She c/o return of fear/anxiety prior to anesthesia. Moaning softly and shaking head side to side. Refuses to open eyes. Cognition is good. Moderately agitated, anxious. Appropriately interactive. Shaking and states she is "terrified." Underwent bilateral ECT without complication. Will continue current meds and acute course ECT.
[2017-12-05] MEDS: CHOLECALCIFEROL VIT D3 2,000 UNITS TAB/CAP PO SCH (09:12)
[2017-12-05] MEDS: CYANO/VITAMIN B12 1000 MCG TAB PO SCH (09:13)
[2017-12-05] MEDS: OMEGA-3 FATTY ACIDS 1,000 MG CAP PO SCH (09:13)
[2017-12-05] MEDS: VENLAFAXINE XR 150 MG CAP PO SCH (09:13)
[2017-12-05] MEDS: ACETAMINOPHEN 325 MG TAB PO PRN (09:14)
[2017-12-05] MEDS: PANTOPRAZOLE SODIUM 40 MG TAB PO SCH (09:14)
[2017-12-05] MEDS: LEVOTHYROXINE 100 MCG TAB PO SCH (11:07)
--- NOTE | 2017-12-05 15:38 | ASMTCMCOM ---
CM Note CM Note Notes: According to [facility] staff, the patient has been substantial improvements over the weekend including practicing all of her physical therapy exercises, walking in the milieu, and appearing brighter overall. Date Signed: 12/05/2017 03:38 PM Electronically Signed By:Poppy Aguilar
[2017-12-05] MEDS: MIRTAZAPINE 30 MG TAB PO SCH (20:36)
[2017-12-05] MEDS: clonazePAM 1 MG TAB PO SCH (20:36)
[2017-12-05] MEDS: traZODone 100 MG TAB PO SCH (20:36)
[2017-12-06] MEDS: OMEGA-3 FATTY ACIDS 1,000 MG CAP PO SCH (09:14)
[2017-12-06] MEDS: VENLAFAXINE XR 150 MG CAP PO SCH (09:14)
[2017-12-06] MEDS: PANTOPRAZOLE SODIUM 40 MG TAB PO SCH (09:15)
[2017-12-06] MEDS: CYANO/VITAMIN B12 1000 MCG TAB PO SCH (09:15)
[2017-12-06] MEDS: CHOLECALCIFEROL VIT D3 2,000 UNITS TAB/CAP PO SCH (09:16)
[2017-12-06] MEDS: LEVOTHYROXINE 100 MCG TAB PO SCH (10:49)
[2017-12-06] MEDS: MAGNESIUM HYDROXIDE 30 ML UDCUP PO PRN (10:50)
[2017-12-06] MEDS: clonazePAM 1 MG TAB PO SCH (16:57)
[2017-12-06] MEDS: traZODone 100 MG TAB PO SCH (20:35)
[2017-12-06] MEDS: MIRTAZAPINE 30 MG TAB PO SCH (20:35)
[2017-12-07] MEDS: PANTOPRAZOLE SODIUM 40 MG TAB PO SCH (04:20)
[2017-12-07] MEDS ORDERED: ONDANSETRON DISINTEGRATING 4 MG TAB ONE (06:15)
[2017-12-07] MEDS ORDERED: CITRIC ACID/SODIUM CITRATE 30 ML UDCUP ONE (06:15)
[2017-12-07] MEDS ORDERED: CITRIC ACID/SODIUM CITRATE 30 ML UDCUP PO PRN (06:45)
[2017-12-07] MEDS ORDERED: ONDANSETRON DISINTEGRATING 4 MG TAB PO PRN (06:45)
[2017-12-07] MEDS ORDERED: NS 1,000 ML IV PRN (06:45)
[2017-12-07] MEDS: OMEGA-3 FATTY ACIDS 1,000 MG CAP PO SCH (08:34)
[2017-12-07] MEDS: VENLAFAXINE XR 150 MG CAP PO SCH (08:35)
[2017-12-07] MEDS: CYANO/VITAMIN B12 1000 MCG TAB PO SCH (08:35)
[2017-12-07] MEDS: CHOLECALCIFEROL VIT D3 2,000 UNITS TAB/CAP PO SCH (08:40)
[2017-12-07] MEDS: LEVOTHYROXINE 100 MCG TAB PO SCH (10:21)
--- NOTE | 2017-12-07 12:41 | ASMTBHFAM ---
Notes Note: Notes: The patient refused to attend ECT treatment today; she was observed discussing her decision with peers in the milieu. She reported that the ECT caused her Dystonia. scheduled a family meeting with Sekou Stahl for , 12/08 @ 11:30. He reported that she informed him that she was going to refuse treatment yesterday and he discouraged her. He expressed concern that the patient will continue to refuse ECT treatment and "backslide;" becoming unmanageable at home and return to the hospital. He stated, "In the past she was stable for several years following treatment but in the past two years she hasn't" sustained treatment. Sekou requested that Marcelina Bowers NP, the patient's outpatient provider attend the meeting or be updated with necessary information. Marcelina Bowers was notified and updated. Date Signed: 12/07/2017 12:40 PM Electronically Signed By:Poppy Aguilar
--- NOTE | 2017-12-07 14:01 | SOAPPROG ---
SOAP Progress Note Assessment/Plan: Assessment: Plan: 11/17/17 15:32 Mood: Remains depressed, anxious, somewhat histrionic. Agrees voluntarily without coercion to proceed with ECT. is completely supportive of this. I believe it is absolutely necessary at this point due to severity of depression and pressing nature of SI as well as hx of lack of responsiveness to meds. Will schedule for acute course treatment starting tomorrow. 11/22/17 20:57 Mood: MUCH improved. Already turning the corner and resumed capacity and reasoning. Will CCM. 11/24/17 21:02 MooD: Continued improvement with ECT. CCM. 12/07/17 14:00 Mood: Doing well with ECT. CCM. Subjective: LATE ENTRY FOR 12/06/17. Pt seen, discussed with staff. Sitting in room on bed. Continues to interact little with others, preferring to isolate in her room. Affect is much brighter and she appears less anxious. Primary c/o remains "cervical dystonia." Objective: Vital Signs Temp Pulse Resp BP Pulse Ox 36.8 C 66 14 122/70 H 93 12/07/17 06:00 12/07/17 06:00 12/07/17 06:00 12/07/17 06:00 12/07/17 06:00 12/06/17 12/07/17 12/08/17 05:59 05:59 05:59 Intake Total 700 Balance 700 MSE: Moderately agitated, anxious. Affect is brighter, smiling occasionally. Mood is "better." TP linear, goal-directed. TC reveals no psychosis. Denies current SI. - Time Spent With Patient Time Spent With Patient: 15" ICD10 Worksheet Patient Problems: Problems Problem Status Onset Severe major depression Acute Attempted suicide Acute Ingestion of corrosive chemical Acute
--- NOTE | 2017-12-07 14:04 | SOAPPROG ---
SOAP Progress Note Assessment/Plan: Assessment: Plan: 11/17/17 15:32 Mood: Remains depressed, anxious, somewhat histrionic. Agrees voluntarily without coercion to proceed with ECT. is completely supportive of this. I believe it is absolutely necessary at this point due to severity of depression and pressing nature of SI as well as hx of lack of responsiveness to meds. Will schedule for acute course treatment starting tomorrow. 11/22/17 20:57 Mood: MUCH improved. Already turning the corner and resumed capacity and reasoning. Will [facility]. 11/24/17 21:02 MooD: Continued improvement with ECT. CCM. 12/07/17 14:00 Mood: Doing well with ECT. [facility]. 12/07/17 14:07 Mood: Continued improvement. Hopefully pt will agree to continue ECT as an outpatient. Subjective: Pt seen, discussed with staff. Refused to go to ECT this morning. She states she does not want to do further treatments because she wants to go home. I informed her that I continue to recommend further acute course and then continuation and maintenance treatments. She does not commit to this, but states she will consider it if she can go home. I told her she was able to leave after we had a family meeting to outline d/c. She is in agreement with this. Objective: Vital Signs Temp Pulse Resp BP Pulse Ox 36.8 C 66 14 122/70 H 93 12/07/17 06:00 12/07/17 06:00 12/07/17 06:00 12/07/17 06:00 12/07/17 06:00 12/06/17 12/07/17 12/08/17 05:59 05:59 05:59 Intake Total 700 Balance 700 MSE: Moderately anxious. Prominent rhythmic head/neck tremor. Affect is constricted, stable. Mood is "fine." TP is generally linear with some negative perseverations. TC reveals no psychosis. Denies SI. - Time Spent With Patient Time Spent With Patient: 25" ICD10 Worksheet Patient Problems: Problems Problem Status Onset Severe major depression Acute Attempted suicide Acute Ingestion of corrosive chemical Acute
[2017-12-07] MEDS: clonazePAM 1 MG TAB PO SCH (20:46)
[2017-12-07] MEDS: traZODone 100 MG TAB PO SCH (20:46)
[2017-12-07] MEDS: MIRTAZAPINE 30 MG TAB PO SCH (20:46)
[2017-12-08 06:53] VITALS: BP 173/77
[2017-12-08] MEDS: CHOLECALCIFEROL VIT D3 2,000 UNITS TAB/CAP PO SCH (08:46)
[2017-12-08] MEDS: CYANO/VITAMIN B12 1000 MCG TAB PO SCH (08:47)
[2017-12-08] MEDS: OMEGA-3 FATTY ACIDS 1,000 MG CAP PO SCH (08:47)
[2017-12-08] MEDS: PANTOPRAZOLE SODIUM 40 MG TAB PO SCH (08:47)
[2017-12-08] MEDS: LEVOTHYROXINE 100 MCG TAB PO SCH (08:47)
[2017-12-08] MEDS: VENLAFAXINE XR 150 MG CAP PO SCH (08:47)
--- NOTE | 2017-12-08 12:26 | ASMTBHDC ---
Notes Note: Notes: CC was able to confirm her follow up appts with out-side providers. Follow up with: Dr. Derick Huang (ECT) [address], [address] [phone] Next Treatment: TuesdayDecember 09 (12/09/17) at 7:30am [facility] [address] [place] [address] Therapy Appt: with Evelyn Butler on December 13 (12/13/17) at 2:30pm. Your, MED appt will be made available at that time. [facility] [address] [place] [id number] Follow UP with Doctor for next visit regarding arm. Date Signed: 12/08/2017 12:26 PM Electronically Signed By:Andrew Montejo
--- NOTE | 2017-12-08 18:14 | BDS ---
REASON FOR ADMISSION: Patient is a 72-year-old female with a history of severe recurrent depression. She was referred to the emergency department by her outpatient provider, Marcelina Bowers, Nurse Practitioner in the [facility]. Marcelina had seen her, and she had been decompensating, experiencing more severe symptoms of depression and voicing imminent thoughts of suicide. She was referred to the emergency department where she was admitted to the [facility] inpatient unit for further evaluation. A full description of the events preceding admission can be found in her admission history dated 11/16/2017. ADMITTING DIAGNOSES: Major depressive disorder, recurrent, severe, without psychotic features, with treatment-resistant features; chronic pain due to cervical dystonia. Hypothyroidism. Possible generalized anxiety disorder. 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 ADMITTING PHYSICAL EXAMINATION: Performed by Dr. Carl Maria showed no acute physical findings. ADMISSION LABORATORY: CBC was normal. Serum chemistries were normal. TSH was initially elevated at 4.99 and was rechecked on 11/30/2017, and noted to be elevated more at 9.57. Her free T4 was normal, however, on the 2nd check at 1.47. Urine drug screen was negative for all substances. Thyroperoxidase antibody and thyroglobulin antibody screen were both normal. HOSPITAL COURSE: Patient was admitted to the [facility] inpatient unit on a voluntary basis. She was seen initially by me with her present and she was quite dramatic, moaning and shaking, writhing in the bed and stating that she was desperately ill, anxious, in fact "terrified" and that all she wanted to do was . She was focus solely on going to a program in [place] where they would provide euthanasia for her and would not discuss anything else. Her was able to convince her to participate with ECT, which she stated she did not want to do, but then agreed based on her conversation with her family to proceed. She is known to me from an outpatient evaluation last September for ECT due to severe recurrent treatment-resistant depression. I recommended continued ECT at that time, as she has had 2 previous courses that were successful. She initially agreed to treatment, then backed out and I did not see her again until this hospitalization. In the interim, she was hospitalized at [facility] where she received another acute course of ECT over 2 months from May to July. She was discharged from there and apparently did well until she began to decompensate approximately a month prior to this admission. She has consistently refused maintenance ECT, even though it has been recommended each time she has completed acute treatment. I met with the patient and her several times until they decided what they wanted to do. She was agreeable to proceeding with ECT, and we began acute course treatment on 11/18/2017. She received a total of 8 acute course treatments in the hospital, the last being on 12/05/2017. She was scheduled for treatment on 12/07/2017, but refused. I spoke with her at that time and she stated that she did not want to do more ECTs. She did not think it was helpful to her. She believed that it was worsening her cervical dystonia and that she wanted to go home. We had a lengthy conversation, in which I assured her that it did not worsen her dystonia, though I did agree that her movements of her head, in essence a central tremor, was not improved. It was noted by Dr. Guan at [facility] that when they did 7 acute course treatments there in January of 2016 and February 2016 that her tremor and dystonia almost resolved. In this instance, I do not believe it got worse, but it certainly did not resolve. I then scheduled a family meeting for her and her to meet with the children's zoo caretaker and myself to discuss ongoing treatment plan. That meeting was held today and she voiced continued resistance to ongoing ECT. Her only stated reason was that she believed it made her dystonia worse, which her and I assured her was not the case. She also stated that she was afraid to do ECT, though I reminded her she has had numerous treatments in the past that have all gone fine, in fact have been very helpful. Ultimately, she agreed to continue with the resolution of her acute course and then maintenance ECT on an outpatient basis. It was agreed that she could be discharged to home as her suicidality has completely resolved and her mood and functional status have increased significantly. Also present at the meeting was her outpatient provider, Marcelina Bowers, who was supportive of the plan and will also be seeing her for medication management and support. CONDITION ON DISCHARGE: Stable. Her affect was anxious, constricted though stable and appropriate. She was smiling frequently through the meeting. She voiced no thoughts of suicide. Her cognition was good and she was showing no significant disruption. She was compliant with her medications and forward thinking and hopeful. DISCHARGE MEDICATIONS: Vitamin B12 1000 mcg daily, vitamin D3 5000 units daily , trazodone 100 mg at bedtime, Effexor XR 150 mg daily, Remeron 30 mg at bedtime , clonazepam 1 mg at bedtime, omega-3 fatty acids 1000 mg daily, Zofran ODT 4 mg sublingual every 6 hours as needed for nausea p.r.n., Protonix 40 mg daily, and levothyroxine 100 mcg daily. DISCHARGE DIAGNOSES: Major depressive disorder, recurrent, severe, without psychosis with treatment-resistant features; cervical dystonia, possible Parkinson disease, chronic illness, recurrent illness; acute suicidality, resolved. DISPOSITION: Patient left the hospital with her to return to their home. FOLLOWUP: She states she will return tomorrow morning at 7:30 to continue her ECT as an outpatient. LEGAL COURSE: Patient was voluntary throughout her stay. There were no labs or studies pending at time of discharge. The patient's attitude was positive at the time of discharge. The patient received screenings for alcohol, tobacco, and metabolic disorders and indicated negatively on all of these and no further evaluation or treatment was recommended. /[id number]/MODL MTDD
== END 2017-12-08 13:04 | disposition home or self-care (01) | DRG 885 ==
LOC: BBEH 13:15
PROVIDERS: ADMIT Psychiatry & Neurology Psychiatry; ATTEND Psychiatry & Neurology Psychiatry
PROC: GZB2ZZZ Electroconvulsive Therapy, Bilateral-Single Seizure (ICD-10-PCS; principal; 2017-11-18)
DX: F33.2 Major depressive disorder, recurrent severe without psychotic features (principal); E03.9 Hypothyroidism, unspecified; G89.29 Other chronic pain; G24.3 Spasmodic torticollis
CPT/HCPCS: 80305; 86376-90; 86800-90; 97110-GO; 97140-GO; 97166-GO; G0480; G8984-GO-CI; G8985-GO-CI; G8986-GO-CI; J0330; J1885; J2250; J2405; J2704; J3010

== ENCOUNTER → 2017-11-23 | Outpatient (CLI) | payer OTHER, MEDICARE | LOC: BMCIMAGING 10:57 | PROVIDERS: ATTEND Orthopaedic Surgery | DX: Z09 Encounter for follow-up examination after completed treatment for conditions other than malignant neoplasm (principal); S52.572D Other intraarticular fracture of lower end of left radius, subsequent encounter for closed fracture with routine healing ==

== ENCOUNTER → 2018-01-05 | Outpatient (CLI) | payer OTHER, MEDICARE | LOC: BMCIMAGING 09:12 | PROVIDERS: ATTEND Physician Assistant | DX: S52.572D Other intraarticular fracture of lower end of left radius, subsequent encounter for closed fracture with routine healing (principal); S52.612D Displaced fracture of left ulna styloid process, subsequent encounter for closed fracture with routine healing ==

== ENCOUNTER → 2018-06-07 | Outpatient (CLI) | payer OTHER, MEDICARE | LOC: CIMAGING 18:21 | PROVIDERS: ATTEND Family Medicine | DX: J40 Bronchitis, not specified as acute or chronic (principal) | CPT/HCPCS: 71046-PO ==